=== PATIENT | male | born 1945 | race Caucasian/White ===

== ENCOUNTER 2021-12-28 13:46 | Inpatient (IN) ==
[2021-12-28 14:01] LABS: POC Calcium, Ionized 1.16 (1.16-1.32); POC Creatinine 6.1 (0.6-1.2); POC Potassium 4.7 (3.3-5.1)
--- NOTE | 2021-12-28 14:05 | Emergency Department Note ---
Altered Mental Status HPI General Chief Complaint: Neuro Symptoms/Deficit Stated Complaint: stroke Time Seen by Provider: 12/28/21 14:00 Source: patient and family Mode of arrival: ambulatory Limitations: no limitations History of Present Illness HPI Narrative: Narrative: The patient is brought in by family for concern plaints of confusion. The patient was last seen normal last night. The family does admit that the confusion seems to have resolved. Patient states that the last thing he remembers was being in the bathroom last night. He said then he woke up this morning and did not remember how he got in there. Patient denies having any pain. He denies headache, chest pain, abdominal pain, neck or back pain, or any extremity injury. Patient denies any recent illness. No cough or fever. No vomiting or diarrhea. Patient denies any dysuria. He says it last night he remembers his right leg being numb for a brief period of time but that has resolved. At the present time, he denies having any weakness or numbness. Related Data Home Medications Medication Instructions Recorded Confirmed tamsulosin 0.4 mg capsule 0.4 mg PO QHS Prostate problems 01/04/20 12/13/21 glipizide 10 mg tablet 10 mg PO QDAY 05/16/20 12/13/21 pravastatin 40 mg tablet 10 mg PO QDAY 06/11/21 12/13/21 calcitriol 0.25 mcg capsule 0.25 mcg PO 3XW 11/13/21 12/13/21 carvedilol 3.125 mg tablet 3.125 mg PO BID 11/13/21 12/13/21 darbepoetin isiah in polysorbat 60 60 mcg subcut Q2W 11/13/21 12/13/21 mcg/mL in polysorbate injection (Aranesp) fluticasone propionate 50 1 spray intranasal QDAY PRN 11/13/21 12/13/21 mcg/actuation nasal spray,suspension famotidine 40 mg tablet 40 mg PO BID 12/13/21 12/13/21 prednisone 20 mg tablet 20 mg PO QDAY 12/13/21 12/13/21 Previous Rx's Medication Instructions Recorded diltiazem HCl 120 mg 120 mg PO QAM HTN and protein in 06/11/21 capsule,extended release 24 hr urine #90 caps furosemide 20 mg tablet 20 mg PO BID #180 tabs 09/12/21 lisinopril 20 mg tablet 20 mg PO QHS HTN, protein in urine 09/18/21 #30 tabs hydralazine 100 mg tablet 100 mg PO TID #300 tabs 11/13/21 Allergies Allergy/AdvReac Type Severity Reaction Status Date / Time doxazosin AdvReac Severe Vomiting Verified 12/13/21 08:45 Review of Systems ROS ROS Narrative: Narrative: All systems ED: reviewed and negative except as stated. [facility] Narrative Patient History Narrative: Narrative: Medical/Surgical/Family History All Active Problems (Updated 12/28/21 @ 16:12 by Sebastián Matias MD) Nocturia (Chronic) Hypertension (Chronic) Chronic kidney disease, stage 4 (severe) (Chronic) Diabetes mellitus (Chronic) Diabetic retinopathy (Chronic) Macular puckering (Chronic) Cellulitis (Chronic) Chronic sinusitis (Chronic) SOB (shortness of breath) (Chronic) Wheezing (Chronic) Acid reflux (Chronic) Urinary urgency (Chronic) Chronic stasis dermatitis (Chronic) Morbidly obese (Chronic) No significant past surgical history (Chronic) Hyperkalemia (Acute) Uncontrolled type 2 diabetes mellitus with stage 4 chronic kidney disease, with long-term current use of insulin (Chronic) 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) Hyperparathyroidism due to renal insufficiency (Chronic) Chronic kidney disease (CKD), stage IV (severe) (Chronic) Chronic diastolic CHF (congestive heart failure), NYHA class 2 (Chronic) Hypotension (Acute) CHF (congestive heart failure) (Acute) BPH (benign prostatic hyperplasia) (Acute) Essential hypertension (Chronic) Diabetes mellitus with chronic kidney disease, without long-term current use of insulin (Chronic) Acute neck pain (Acute) Acute neck pain (Acute) Viral syndrome (Acute) Acute anemia (Acute) Anemia due to stage 4 chronic kidney disease treated with darbepoetin (Acute) Iron deficiency (Acute) Mass of left lung (Acute) TIA (transient ischemic attack) (Acute) Transient confusion (Acute) ANNA (acute kidney injury) (Acute) Medical History (Updated 12/28/21 @ 16:12 by Sebastián Matias MD) Acid reflux Cellulitis Chronic diastolic CHF (congestive heart failure), NYHA class 2 Suspect HTN > valvular heart disease. 05/2021: Add diltiazem in place of amlodipine Chronic kidney disease (CKD), stage IV (severe) HTN, NSAIDs with nephrotic range proteinuria...suspect prior NSAIDS cause and doubt DM as HgA1c well controlled over the years. Since spring, there has been worsening of GFR to 14 cc/min but improved proteinuria Chronic kidney disease, stage 4 (severe) Most likely associated with diabetes mellitus type 2 with proteinuria present Chronic sinusitis Chronic stasis dermatitis Diabetes mellitus Diabetic nephropathy associated with type 2 diabetes mellitus Stable GFR and marked improvement in urine protein losses argues against DM nephropathy or marked improvement /therapeutic sucess with ACEi Diabetic retinopathy Hypertension Goal blood pressure is 130/80 He is not achieve that goal yet but is improved... Increase hydralazine to 100 mg 3 times a day on 11/13/2021 and continue lisinopril 20 mg a day and the diltiazem and carvedilol Macular puckering Morbidly obese Nocturia SOB (shortness of breath) Uncontrolled type 2 diabetes mellitus with stage 4 chronic kidney disease, with long-term current use of insulin Currently on 70/30 insulin as well as low-dose glipizide Urinary urgency Viral syndrome Wheezing Surgical History No significant past surgical history Social History Smoking Status: Never smoker Alcohol Intake Frequency: does not drink Substance Use: does not use Exam Narrative Narrative: Narrative: General Limitations: no limitations General appearance: Present alert and in no apparent distress Head Head: Present atraumatic and normal inspection Eye Eye: Present normal appearance, PERRL and EOMI; Absent nystagmus ENT ENT: Present mucous membranes moist Neck Neck: Present normal inspection, full ROM and trachea midline; Absent tenderness or meningismus Chest Chest: Present normal inspection and symmetric chest wall rise; Absent tenderness Respiratory Respiratory: Present normal lung sounds bilaterally; Absent respiratory distress Cardiovascular Cardiovascular: Present normal rhythm, bradycardia and other (+2 pulses all 4 EXTR) Adbominal Abdominal: Present soft; Absent distention or tenderness Extremities Extremities: Present normal inspection and full ROM; Absent tenderness Back Back: Present full ROM; Absent tenderness, CVA tenderness (R) or CVA tenderness (L) Neurological Neurological: Present alert, oriented X3, CN II-XII intact and other (Cerebellar exam is normal based on finger-nose. NIH stroke scale 0. GCS 15); Absent motor sensory deficit Psychiatric Psychiatric: Present normal affect and normal mood Skin Skin: Present warm (WNL) and dry Course Reevaluation(s) Reevaluation #1: With a negative head CT, plan on giving aspirin. We will also obtain an MRI of the brain. Time: 15:39 Vital Signs Vital signs: Vital Signs Pulse Rate 45 L 12/28/21 13:51 Respiratory Rate 15 12/28/21 13:51 Blood Pressure 101/49 12/28/21 13:51 Pulse Oximetry (%) 98 12/28/21 13:51 Oxygen Delivery Method 12/28/21 13:51 Pulse Rate 37 L 12/28/21 16:17 Respiratory Rate 14 12/28/21 16:17 Blood Pressure 114/46 12/28/21 16:17 Pulse Oximetry (%) 98 12/28/21 16:17 Oxygen Delivery Method 12/28/21 13:51 MDM MDM Narrative Medical decision making narrative: Narrative: The patient is brought in for concerns of confusion. The symptoms seem to have resolved. He had a transient confusion last night and into this morning. He has a nonfocal neurologic exam. I do not think that the patient has had a stroke. Metabolic or infectious etiologies are also considered. TIA is considered. Plan to get a head CT and other appropriate work-up for this differential. At change of shift, the patient is handed over to the oncoming provider. The urinalysis and MRI of the head is still pending. Patient's lab work does show a slightly worsening creatinine compared to baseline. A saline drip has been ordered. I think patient could benefit from an observation overnight for continued saline infusion even if the MRI and UA do not show any acute abnormality. Please see the follow-up providers note for further details. Lab Data Lab results reviewed: Yes I reviewed the patient's lab results. Result diagrams: 12/28/21 14:00 12/28/21 14:00 Labs: Lab Results 12/28/21 12/28/21 12/28/21 Range/Units 13:57 13:58 14:00 WBC 9.9 (4.5-11.0) K/mcL RBC 3.76 L (4.63-6.08) M/mcL Hgb 10.4 L (13.7-17.5) g/dL Hct 33.2 L (40.1-51.0) % POC Hct 34.0 L (41-55) MCV 88.3 (80.0-100.0) fL MCH 27.7 (26.0-34.0) pg MCHC 31.3 (31.0-36.0) g/dL RDW 15.9 H (11.5-14.5) % Plt Count 298 (140-440) K/mcL MPV 9.7 (7.4-10.4) fL Immature Gran % (Auto) 0.3 (0.0-0.5) % Neut % (Auto) 86.6 H (38.0-78.0) % Lymph % (Auto) 6.7 L (15.5-49.0) % Gonzales % (Auto) 5.9 (1.0-12.0) % Eos % (Auto) 0.2 (0.0-7.0) % Baso % (Auto) 0.3 (0.0-2.0) % Lymph # (Auto) 0.66 L (1.50-4.80) K/mcL Gonzales # (Auto) 0.58 (0.10-0.90) K/mcL Eos # (Auto) 0.02 (0.00-0.70) K/mcL Baso # (Auto) 0.03 (0.00-0.30) K/mcL Immature Gran # 0.03 (0.00-0.05) K/mcl Absolute Neutrophils 8.53 H (1.80-8.00) K/mcL PT (11.9-14.5) sec INR (0.9-1.1) APTT (20.0-37.0) sec POC Sodium 133 (133-145) Sodium (133-145) mmol/L POC Potassium 4.7 (3.3-5.1) Potassium (3.3-5.1) mmol/L POC Chloride 102 (96-108) Chloride (96-108) mmol/L Carbon Dioxide (22-30) mmol/L POC Total CO2 19.0 L (22-30) Anion Gap (8.0-16.0) POC BUN 111 H* (6-20) BUN (8-23) mg/dL Creatinine (0.7-1.2) mg/dL POC Creatinine 6.1 H* (0.6-1.2) GFR Calculation Glucose (70-105) mg/dL POC Glucose 111 H (70-105) Calcium (8.6-10.4) mg/dL POC WB Ioniz Calcium 1.16 (1.16-1.32) Total Bilirubin (0.1-1.0) mg/dL AST (<40) U/L ALT (<40) U/L Alkaline Phosphatase (39-117) U/L Total Protein (5.9-8.4) gm/dL Albumin (3.2-5.2) gm/dL Globulin (2.2-3.7) gm/dL Albumin/Globulin Ratio (1.0-2.3) POC Troponin I 0 L (0.02-0.08) 12/28/21 12/28/21 Range/Units 14:00 14:00 WBC (4.5-11.0) K/mcL RBC (4.63-6.08) M/mcL Hgb (13.7-17.5) g/dL Hct (40.1-51.0) % POC Hct (41-55) MCV (80.0-100.0) fL MCH (26.0-34.0) pg MCHC (31.0-36.0) g/dL RDW (11.5-14.5) % Plt Count (140-440) K/mcL MPV (7.4-10.4) fL Immature Gran % (Auto) (0.0-0.5) % Neut % (Auto) (38.0-78.0) % Lymph % (Auto) (15.5-49.0) % Gonzales % (Auto) (1.0-12.0) % Eos % (Auto) (0.0-7.0) % Baso % (Auto) (0.0-2.0) % Lymph # (Auto) (1.50-4.80) K/mcL Gonzales # (Auto) (0.10-0.90) K/mcL Eos # (Auto) (0.00-0.70) K/mcL Baso # (Auto) (0.00-0.30) K/mcL Immature Gran # (0.00-0.05) K/mcl Absolute Neutrophils (1.80-8.00) K/mcL PT 13.8 (11.9-14.5) sec INR 1.0 (0.9-1.1) APTT 35.8 (20.0-37.0) sec POC Sodium (133-145) Sodium 134 (133-145) mmol/L POC Potassium (3.3-5.1) Potassium 4.8 (3.3-5.1) mmol/L POC Chloride (96-108) Chloride 96 (96-108) mmol/L Carbon Dioxide 17 L (22-30) mmol/L POC Total CO2 (22-30) Anion Gap 21.0 H (8.0-16.0) POC BUN (6-20) BUN 87 H (8-23) mg/dL Creatinine 5.2 H* (0.7-1.2) mg/dL POC Creatinine (0.6-1.2) GFR Calculation 10 Glucose 106 H (70-105) mg/dL POC Glucose (70-105) Calcium 9.1 (8.6-10.4) mg/dL POC WB Ioniz Calcium (1.16-1.32) Total Bilirubin 0.4 (0.1-1.0) mg/dL AST 21 (<40) U/L ALT 15 (<40) U/L Alkaline Phosphatase 106 (39-117) U/L Total Protein 6.9 (5.9-8.4) gm/dL Albumin 3.1 L (3.2-5.2) gm/dL Globulin 3.8 H (2.2-3.7) gm/dL Albumin/Globulin Ratio 0.8 L (1.0-2.3) POC Troponin I (0.02-0.08) Radiology Data Radiology results reviewed: Yes I reviewed the patient's radiology results. Radiology results narrative: Per a phone call from the radiologist, the head CT shows no acute abnormality. There is no sign of any hemorrhage. EKG Data EKG #1: EKG attestation: Yes I reviewed and interpreted this EKG. and Yes There are no EKG findings of acute coronary syndrome EKG results narrative: Sinus, rate 39, normal axis, QTC 472, TN 200, and pattern, no acute ST or T changes concerning for acute infarction Discharge Plan Patient/Caregiver Discharge Instructions Pt seen by VP SALES/PA only: No Clinical Impression: TIA (transient ischemic attack), Transient confusion, ANNA (acute kidney injury) Patient Disposition: Still a Patient Follow up with: Elizabeth Heredia ARNP [Primary Care Provider] - Prescriptions: No Action furosemide 20 mg tablet 20 mg PO BID Qty: 180 2RF tamsulosin 0.4 mg capsule 0.4 mg PO QHS glipizide 10 mg tablet 10 mg PO QDAY famotidine 40 mg tablet 40 mg PO BID fluticasone propionate 50 mcg/actuation spray,suspension 1 spray intranasal QDAY PRN Rx Instructions: administer into each nostril pravastatin 40 mg tablet 10 mg PO QDAY diltiazem HCl 120 mg capsule,extended release 24hr 120 mg PO QAM Qty: 90 3RF Rx Instructions: Do not take if HR less than 60/min Replaces Amlodipine lisinopril 20 mg tablet 20 mg PO QHS Qty: 30 11RF Rx Instructions: New dose. Aranesp (in polysorbate) 60 mcg/mL solution 60 mcg subcut Q2W calcitriol 0.25 mcg capsule 0.25 mcg PO 3XW Rx Instructions: Thursday, Thursday, Thursday. carvedilol 3.125 mg tablet 3.125 mg PO BID Rx Instructions: must administer with a meal/food hydralazine 100 mg tablet 100 mg PO TID Qty: 300 3RF Rx Instructions: NEW DOSE prednisone 20 mg tablet 20 mg PO QDAY Rx Instructions: has 3 left.
[2021-12-28 15:10] LABS: Partial Thromboplastin Time 35.8 sec (20.0-37.0); Prothrombin Time 13.8 sec (11.9-14.5)
[2021-12-28] MEDS ORDERED: 0.9 % SODIUM CHLORIDE 500 ML IV ONE ×2 (15:10→17:21)
[2021-12-28 15:25] LABS: Basophils # (Auto) 0.03 K/mcL (0.00-0.30); Basophils % (Auto) 0.3 % (0.0-2.0); Eosinophils # (Auto) 0.02 K/mcL (0.00-0.70); Eosinophils % (Auto) 0.2 % (0.0-7.0); Hematocrit 33.2 % (40.1-51.0); Hemoglobin 10.4 g/dL (13.7-17.5); Lymphocytes # (Auto) 0.66 K/mcL (1.50-4.80); Lymphocytes % (Auto) 6.7 % (15.5-49.0); Mean Cell Volume 88.3 fL (80.0-100.0); Mean Corpuscular HGB Conc 31.3 g/dL (31.0-36.0); Mean Platelet Volume 9.7 fL (7.4-10.4); Monocytes # (Auto) 0.58 K/mcL (0.10-0.90); Monocytes % (Auto) 5.9 % (1.0-12.0); Neutrophils % (Auto) 86.6 % (38.0-78.0); Platelet Count 298 K/mcL (140-440); RBC 3.76 M/mcL (4.63-6.08); Red Cell Distribution Width 15.9 % (11.5-14.5); WBC 9.9 K/mcL (4.5-11.0)
[2021-12-28] MEDS ORDERED: ASPIRIN 325 MG ENTERIC COATED TABLET PO ONE (15:38)
[2021-12-28 15:45] LABS: ALT/SGPT 15 U/L (<40); AST/SGOT 21 U/L (<40); Albumin 3.1 gm/dL (3.2-5.2); Albumin/Globulin Ratio 0.8 (1.0-2.3); Alkaline Phosphatase 106 U/L (39-117); Bilirubin,Total 0.4 mg/dL (0.1-1.0); Blood Urea Nitrogen 87 mg/dL (8-23); Calcium 9.1 mg/dL (8.6-10.4); Carbon Dioxide 17 mmol/L (22-30); Chloride 96 mmol/L (96-108); Globulin 3.8 gm/dL (2.2-3.7); Glomerular Filtration Rate 10; Glucose 106 mg/dL (70-105)
[2021-12-28] MEDS ORDERED: ASPIRIN 81 MG TAB.CHEW CHEWED ONE (15:46)
[2021-12-28] MEDS: 0.9 % SODIUM CHLORIDE 1,000 ML IV SCH (16:11)
[2021-12-28] MEDS ORDERED: FUROSEMIDE 20 MG/2 ML VIAL IV ONE (17:21)
--- NOTE | 2021-12-28 17:37 | Magnetic Resonance Report ---
CLINICAL INFORMATION: Code stroke COMPARISON: None. TECHNIQUE:Sagittal T1 FLAIR, axial T1 FLAIR, T2 FLAIR propeller, T2 propeller, gradient, diffusion, ADC and coronal T2 weighted images were acquired. FINDINGS: The ventricles, sulci, fissures and cisterns are symmetrically enlarged compatible with mild age-related atrophy extra-axial fluid collections or mass are appreciated. Scattered chronic ischemic lesions in the deep cerebral white matter less than typically seen in this age group. No restricted diffusion to suggest acute CVA. No hemorrhage mass effect or other acute finding. The signal void in intracerebral arteries, extra-axial cranial nerves, pituitary, orbits and paranasal sinuses are all normal. IMPRESSION: Mild atrophy and scattered chronic ischemic foci in the deep cerebral white matter expected for age. No evidence of acute CVA or other acute finding. Interpreted and Authenticated by: Jimmy Glass 12/28/21
--- NOTE | 2021-12-28 17:39 | Cat Scan Report ---
CLINICAL INFORMATION: Code stroke COMPARISON: None. TECHNIQUE: 2.5 mm helical slices were obtained in the skull base to vertex. Following reconstruction, axial reformatted images were reviewed at bone and parenchymal windows. The exam was performed using radiation dose optimization techniques including, but not limited to, automated exposure control, adjustment of the mA and/or kV according to patient size and use of iterative reconstruction technique. FINDINGS: The ventricles, sulci, fissures, and cisterns are symmetrically enlarged compatible with mild age-related atrophy. No extra-axial fluid collections are identified. Mild patchy chronic ischemic changes, in the deep cerebral white matter, are expected for age. There is no hemorrhage, mass effect, or edema. Bone windows show no osseous abnormality. IMPRESSION: Mild atrophy and chronic ischemic changes in the deep cerebral white matter-expected for age. No acute findings COMPARISON: None. TECHNIQUE: 2.5 mm helical slices were obtained in the skull base to vertex. Following reconstruction, axial reformatted images were reviewed at bone and parenchymal windows. The exam was performed using radiation dose optimization techniques including, but not limited to, automated exposure control, adjustment of the mA and/or kV according to patient size and use of iterative reconstruction technique. FINDINGS: The ventricles, sulci, fissures, and cisterns are normal in size and configuration. No extra-axial fluid collections are identified. The cerebrum, brainstem and cerebellum are unremarkable. There is no evidence of hemorrhage, mass effect, or edema. Bone windows show no osseous abnormality. IMPRESSION: Normal head CT without contrast. Interpreted and Authenticated by: Jimmy Glass 12/28/21
--- NOTE | 2021-12-28 17:42 | XRay Report ---
CLINICAL INFORMATION: Code stroke COMPARISON: 10/23/2021 TECHNIQUE: Portable FINDINGS: Mild cardiomegaly is unchanged. 5 cm left suprahilar mass which likely represent lung carcinoma also stable. This has been previously evaluated chest CT. The right hilum, remaining mediastinum and pulmonary vessels are normal. No infiltrates or effusions. IMPRESSION: 1. No acute disease. 2. 5 cm left suprahilar mass which may represent pulmonary malignancy. Additional clinical history unavailable. No change from the very short term two months ago. 3. Mild stable cardiomegaly Interpreted and Authenticated by: Jimmy Glass 12/28/21
[2021-12-28 19:40] LABS: POC Calcium, Ionized 1.14 (1.16-1.32); POC Creatinine 5.9 (0.6-1.2); POC Potassium 5.2 (3.3-5.1)
[2021-12-28 20:12] LABS: Appearance,Urine Clear (Clear); Bilirubin,Urine Negative (Negative); Color,Urine Yellow; Culture Indicated,Urine No; Glucose,Urine (UA) Negative (Negative); Ketones,Urine Negative (Negative); Leukocyte Esterase,Urine Negative /uL (Negative); Mucus,Urine FEW /hpf; Nitrate,Urine Negative (Negative); Urine Blood Negative ery/mcL (Negative); Urine RBC 0 /hpf (0-3); Urine Squamous Epithelial Cell 0 /hpf (0-4); Urine WBC 1 /hpf (0-4); Urobilinogen,Urine Normal
[2021-12-28 22:27] LABS: Albumin 2.8 gm/dL (3.2-5.2); Calcium 8.7 mg/dL (8.6-10.4); Phosphorous 8.3 mg/dL (2.5-4.5)
--- NOTE | 2021-12-28 22:31 | Emergency Department Note ---
Course Course Course Narrative: I assumed care for patient at 1700 pending, urine MRI results. MRI was negative for any acute findings. Labs show that patient's renal function improved with fluid. He did have 300+ urine in his bladder and could not provide us a urine so a Munoz catheter was placed and anchored. UA was unremarkable. Patient reiterated that he is refusing dialysis. Case was discussed with hospitalist who has agreed to admit the patient which we are grateful for. Plan was discussed with patient and he expressed verbal understanding and agreement. Vital Signs Vital signs: Vital Signs Pulse Rate 45 L 12/28/21 13:51 Respiratory Rate 15 12/28/21 13:51 Blood Pressure 101/49 12/28/21 13:51 Pulse Oximetry (%) 98 12/28/21 13:51 Oxygen Delivery Method 12/28/21 13:51 Pulse Rate 57 L 12/28/21 23:46 Respiratory Rate 14 12/28/21 23:46 Blood Pressure 127/49 12/28/21 23:46 Pulse Oximetry (%) 97 12/28/21 23:46 Oxygen Delivery Method 12/28/21 13:51 [facility] MDM Narrative Medical decision making narrative: Narrative: Differential Diagnosis Differential Diagnosis: Acute on chronic kidney injury, TIA Lab Data Lab results reviewed: Yes I reviewed the patient's lab results. Result diagrams: 12/28/21 14:00 12/28/21 20:59 Labs: Lab Results 12/28/21 12/28/21 12/28/21 Range/Units 13:57 13:58 14:00 WBC 9.9 (4.5-11.0) K/mcL RBC 3.76 L (4.63-6.08) M/mcL Hgb 10.4 L (13.7-17.5) g/dL Hct 33.2 L (40.1-51.0) % POC Hct 34.0 L (41-55) MCV 88.3 (80.0-100.0) fL MCH 27.7 (26.0-34.0) pg MCHC 31.3 (31.0-36.0) g/dL RDW 15.9 H (11.5-14.5) % Plt Count 298 (140-440) K/mcL MPV 9.7 (7.4-10.4) fL Immature Gran % (Auto) 0.3 (0.0-0.5) % Neut % (Auto) 86.6 H (38.0-78.0) % Lymph % (Auto) 6.7 L (15.5-49.0) % [place] % (Auto) 5.9 (1.0-12.0) % Eos % (Auto) 0.2 (0.0-7.0) % Baso % (Auto) 0.3 (0.0-2.0) % Lymph # (Auto) 0.66 L (1.50-4.80) K/mcL [place] # (Auto) 0.58 (0.10-0.90) K/mcL Eos # (Auto) 0.02 (0.00-0.70) K/mcL Baso # (Auto) 0.03 (0.00-0.30) K/mcL Immature Gran # 0.03 (0.00-0.05) K/mcl Absolute Neutrophils 8.53 H (1.80-8.00) K/mcL PT (11.9-14.5) sec INR (0.9-1.1) APTT (20.0-37.0) sec POC Sodium 133 (133-145) Sodium (133-145) mmol/L POC Potassium 4.7 (3.3-5.1) Potassium (3.3-5.1) mmol/L POC Chloride 102 (96-108) Chloride (96-108) mmol/L Carbon Dioxide (22-30) mmol/L POC Total CO2 19.0 L (22-30) Anion Gap (8.0-16.0) POC BUN 111 H* (6-20) BUN (8-23) mg/dL Creatinine (0.7-1.2) mg/dL POC Creatinine 6.1 H* (0.6-1.2) GFR Calculation Glucose (70-105) mg/dL POC Glucose 111 H (70-105) Calcium (8.6-10.4) mg/dL POC WB Ioniz Calcium 1.16 (1.16-1.32) Phosphorus (2.5-4.5) mg/dL Total Bilirubin (0.1-1.0) mg/dL AST (<40) U/L ALT (<40) U/L Alkaline Phosphatase (39-117) U/L Total Protein (5.9-8.4) gm/dL Albumin (3.2-5.2) gm/dL Globulin (2.2-3.7) gm/dL Albumin/Globulin Ratio (1.0-2.3) Urine Color Urine Appearance (Clear) Urine pH (5.0-9.0) Ur Specific [place] (1.000-1.035) Urine Protein (Negative) mg/dL Urine Glucose (UA) (Negative) mg/dL Urine Ketones (Negative) mg/dL Urine Occult Blood (Negative) omar/mcL Urine Nitrate (Negative) Urine Bilirubin (Negative) mg/dL Urine Urobilinogen mg/dL Ur Leukocyte Esterase (Negative) /uL Urine RBC (0-3) /hpf Urine WBC (0-4) /hpf Ur Squamous Epith Cells (0-4) /hpf Urine Bacteria (0) /hpf Urine Mucus (None) /hpf Ur Culture Indicated? POC Troponin I 0 L (0.02-0.08) 12/28/21 12/28/21 12/28/21 Range/Units 14:00 14:00 18:00 WBC (4.5-11.0) K/mcL RBC (4.63-6.08) M/mcL Hgb (13.7-17.5) g/dL Hct (40.1-51.0) % POC Hct (41-55) MCV (80.0-100.0) fL MCH (26.0-34.0) pg MCHC (31.0-36.0) g/dL RDW (11.5-14.5) % Plt Count (140-440) K/mcL MPV (7.4-10.4) fL Immature Gran % (Auto) (0.0-0.5) % Neut % (Auto) (38.0-78.0) % Lymph % (Auto) (15.5-49.0) % [place] % (Auto) (1.0-12.0) % Eos % (Auto) (0.0-7.0) % Baso % (Auto) (0.0-2.0) % Lymph # (Auto) (1.50-4.80) K/mcL [place] # (Auto) (0.10-0.90) K/mcL Eos # (Auto) (0.00-0.70) K/mcL Baso # (Auto) (0.00-0.30) K/mcL Immature Gran # (0.00-0.05) K/mcl Absolute Neutrophils (1.80-8.00) K/mcL PT 13.8 (11.9-14.5) sec INR 1.0 (0.9-1.1) APTT 35.8 (20.0-37.0) sec POC Sodium (133-145) Sodium 134 (133-145) mmol/L POC Potassium (3.3-5.1) Potassium 4.8 (3.3-5.1) mmol/L POC Chloride (96-108) Chloride 96 (96-108) mmol/L Carbon Dioxide 17 L (22-30) mmol/L POC Total CO2 (22-30) Anion Gap 21.0 H (8.0-16.0) POC BUN (6-20) BUN 87 H (8-23) mg/dL Creatinine 5.2 H* (0.7-1.2) mg/dL POC Creatinine (0.6-1.2) GFR Calculation 10 Glucose 106 H (70-105) mg/dL POC Glucose (70-105) Calcium 9.1 (8.6-10.4) mg/dL POC WB Ioniz Calcium (1.16-1.32) Phosphorus (2.5-4.5) mg/dL Total Bilirubin 0.4 (0.1-1.0) mg/dL AST 21 (<40) U/L ALT 15 (<40) U/L Alkaline Phosphatase 106 (39-117) U/L Total Protein 6.9 (5.9-8.4) gm/dL Albumin 3.1 L (3.2-5.2) gm/dL Globulin 3.8 H (2.2-3.7) gm/dL Albumin/Globulin Ratio 0.8 L (1.0-2.3) Urine Color Yellow Urine Appearance Clear (Clear) Urine pH 5.0 (5.0-9.0) Ur Specific [place] 1.020 (1.000-1.035) Urine Protein 100 mg/dl A (Negative) mg/dL Urine Glucose (UA) Negative (Negative) mg/dL Urine Ketones Negative (Negative) mg/dL Urine Occult Blood Negative (Negative) omar/mcL Urine Nitrate Negative (Negative) Urine Bilirubin Negative (Negative) mg/dL Urine Urobilinogen Normal mg/dL Ur Leukocyte Esterase Negative (Negative) /uL Urine RBC 0 (0-3) /hpf Urine WBC 1 (0-4) /hpf Ur Squamous Epith Cells 0 (0-4) /hpf Urine Bacteria None (0) /hpf Urine Mucus Few A (None) /hpf Ur Culture Indicated? No POC Troponin I (0.02-0.08) 12/28/21 12/28/21 12/28/21 Range/Units 19:35 20:59 20:59 WBC (4.5-11.0) K/mcL RBC (4.63-6.08) M/mcL Hgb (13.7-17.5) g/dL Hct (40.1-51.0) % POC Hct 30.0 L (41-55) MCV (80.0-100.0) fL MCH (26.0-34.0) pg MCHC (31.0-36.0) g/dL RDW (11.5-14.5) % Plt Count (140-440) K/mcL MPV (7.4-10.4) fL Immature Gran % (Auto) (0.0-0.5) % Neut % (Auto) (38.0-78.0) % Lymph % (Auto) (15.5-49.0) % [place] % (Auto) (1.0-12.0) % Eos % (Auto) (0.0-7.0) % Baso % (Auto) (0.0-2.0) % Lymph # (Auto) (1.50-4.80) K/mcL [place] # (Auto) (0.10-0.90) K/mcL Eos # (Auto) (0.00-0.70) K/mcL Baso # (Auto) (0.00-0.30) K/mcL Immature Gran # (0.00-0.05) K/mcl Absolute Neutrophils (1.80-8.00) K/mcL PT (11.9-14.5) sec INR (0.9-1.1) APTT (20.0-37.0) sec POC Sodium 133 (133-145) Sodium 132 L (133-145) mmol/L POC Potassium 5.2 H (3.3-5.1) Potassium 5.4 H 5.2 H (3.3-5.1) mmol/L POC Chloride 103 (96-108) Chloride 97 (96-108) mmol/L Carbon Dioxide 16 L (22-30) mmol/L POC Total CO2 18.0 L (22-30) Anion Gap 19.0 H (8.0-16.0) POC BUN 109 H* (6-20) BUN 92 H (8-23) mg/dL Creatinine 4.9 H (0.7-1.2) mg/dL POC Creatinine 5.9 H* (0.6-1.2) GFR Calculation 11 Glucose 246 H (70-105) mg/dL POC Glucose 182 H (70-105) Calcium 8.7 (8.6-10.4) mg/dL POC WB Ioniz Calcium 1.14 L (1.16-1.32) Phosphorus 8.3 H* (2.5-4.5) mg/dL Total Bilirubin (0.1-1.0) mg/dL AST (<40) U/L ALT (<40) U/L Alkaline Phosphatase (39-117) U/L Total Protein (5.9-8.4) gm/dL Albumin 2.8 L (3.2-5.2) gm/dL Globulin (2.2-3.7) gm/dL Albumin/Globulin Ratio (1.0-2.3) Urine Color Urine Appearance (Clear) Urine pH (5.0-9.0) Ur Specific [place] (1.000-1.035) Urine Protein (Negative) mg/dL Urine Glucose (UA) (Negative) mg/dL Urine Ketones (Negative) mg/dL Urine Occult Blood (Negative) omar/mcL Urine Nitrate (Negative) Urine Bilirubin (Negative) mg/dL Urine Urobilinogen mg/dL Ur Leukocyte Esterase (Negative) /uL Urine RBC (0-3) /hpf Urine WBC (0-4) /hpf Ur Squamous Epith Cells (0-4) /hpf Urine Bacteria (0) /hpf Urine Mucus (None) /hpf Ur Culture Indicated? POC Troponin I (0.02-0.08) Radiology Data Radiology results reviewed: Yes I reviewed the patient's radiology results. Radiology results narrative: MRI of the brain obtained with image reviewed myself, agree with radiologist interpretation Core Measures AMI Core Measures Followed: Yes Discharge Plan Patient/Caregiver Discharge Instructions Pt seen by SCARFER OPERATOR/PA only: No Clinical Impression: TIA (transient ischemic attack), Transient confusion, ANAN (acute kidney injury) Patient Disposition: Xfer As Outpt/Obs ([facility]) Condition: Fair Follow up with: Elizabeth Heredia ARNP [Primary Care Provider] - Prescriptions: No Action furosemide 20 mg tablet 20 mg PO BID Qty: 180 2RF tamsulosin 0.4 mg capsule 0.4 mg PO QHS glipizide 10 mg tablet 10 mg PO QDAY famotidine 40 mg tablet 40 mg PO BID fluticasone propionate 50 mcg/actuation spray,suspension 1 spray intranasal QDAY PRN Rx Instructions: administer into each nostril pravastatin 40 mg tablet 10 mg PO QDAY diltiazem HCl 120 mg capsule,extended release 24hr 120 mg PO QAM Qty: 90 3RF Rx Instructions: Do not take if HR less than 60/min Replaces Amlodipine lisinopril 20 mg tablet 20 mg PO QHS Qty: 30 11RF Rx Instructions: New dose. Aranesp (in polysorbate) 60 mcg/mL solution 60 mcg subcut Q2W calcitriol 0.25 mcg capsule 0.25 mcg PO 3XW Rx Instructions: Thursday, Thursday, Thursday. carvedilol 3.125 mg tablet 3.125 mg PO BID Rx Instructions: must administer with a meal/food hydralazine 100 mg tablet 100 mg PO TID Qty: 300 3RF Rx Instructions: NEW DOSE prednisone 20 mg tablet 20 mg PO QDAY Rx Instructions: has 3 left.
--- NOTE | 2021-12-28 23:54 | Internal Med History&Physical ---
HPI History of Present Illness Patient information: Note initiated : 12/28/21 at 11:51 pm Service Date, if different from initiated Date: [] Patient: Rito Fleming 76 y/o M admitted on for stroke. Chief Complaint: [] History of present illness: Mr. Fleming is a 76 year old male with a history of hypertension, diabetes mellitus, HFpEF, moderate aortic stenosis, CKD stage 4, lung mass, CHELY presented to the ED for an acute episode of confusion at home. Symptoms resolved in the ED, CT head and MRI brain did not show any acute changes. The patient was found to have an acute on chronic kidney disease injury and hyperkalemia in the emergency department. Hospital medicine was consulted for admission for acute kidney injury and hyperkalemia. Review of systems Constitutional: no fever, fatigue, or weight loss Eyes: no vision changes or pain Cardiovascular: no chest pain, no palpitations Respiratory: no cough or dyspnea Gastrointestinal: no abdominal pain, no nausea, vomiting, or diarrhea Genitourinary: no dysuria or difficulty voiding Musculoskeletal: no arthralgia or myalgia Integumentary: no skin lesion or wound Neurological: Resolved confusion, no focal weakness or numbness Psychiatric: no anxiety or depression Physical exam Head: Atraumatic, normal inspection. Eyes: normal appearance, no scleral icterus. Neck: full ROM Respiratory: no respiratory distress. Cardiovascular: normal rate and rhythm, S1, S2. GI/Abdominal: soft, nontender, no guarding. Extremities: full range of motion, nontender. Neurological: CN II-XII intact, intact motor, intact sensation. Psychiatric: normal mood. Skin: warm, normal color PFSH PFSH All Active Problems (Updated 12/28/21 @ 16:12 by Sebastián Matias MD) Nocturia (Chronic) Hypertension (Chronic) Chronic kidney disease, stage 4 (severe) (Chronic) Diabetes mellitus (Chronic) Diabetic retinopathy (Chronic) Macular puckering (Chronic) Cellulitis (Chronic) Chronic sinusitis (Chronic) SOB (shortness of breath) (Chronic) Wheezing (Chronic) Acid reflux (Chronic) Urinary urgency (Chronic) Chronic stasis dermatitis (Chronic) Morbidly obese (Chronic) No significant past surgical history (Chronic) Hyperkalemia (Acute) Uncontrolled type 2 diabetes mellitus with stage 4 chronic kidney disease, with long-term current use of insulin (Chronic) 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) Hyperparathyroidism due to renal insufficiency (Chronic) Chronic kidney disease (CKD), stage IV (severe) (Chronic) Chronic diastolic CHF (congestive heart failure), NYHA class 2 (Chronic) Hypotension (Acute) CHF (congestive heart failure) (Acute) BPH (benign prostatic hyperplasia) (Acute) Essential hypertension (Chronic) Diabetes mellitus with chronic kidney disease, without long-term current use of insulin (Chronic) Acute neck pain (Acute) Acute neck pain (Acute) Viral syndrome (Acute) Acute anemia (Acute) Anemia due to stage 4 chronic kidney disease treated with darbepoetin (Acute) Iron deficiency (Acute) Mass of left lung (Acute) TIA (transient ischemic attack) (Acute) Transient confusion (Acute) ANNA (acute kidney injury) (Acute) Medical History (Updated 12/28/21 @ 16:12 by Sebastián Matias MD) Acid reflux Cellulitis Chronic diastolic CHF (congestive heart failure), NYHA class 2 Suspect HTN > valvular heart disease. 05/2021: Add diltiazem in place of amlodipine Chronic kidney disease (CKD), stage IV (severe) HTN, NSAIDs with nephrotic range proteinuria...suspect prior NSAIDS cause and doubt DM as HgA1c well controlled over the years. Since spring, there has been worsening of GFR to 14 cc/min but improved proteinuria Chronic kidney disease, stage 4 (severe) Most likely associated with diabetes mellitus type 2 with proteinuria present Chronic sinusitis Chronic stasis dermatitis Diabetes mellitus Diabetic nephropathy associated with type 2 diabetes mellitus Stable GFR and marked improvement in urine protein losses argues against DM nephropathy or marked improvement /therapeutic sucess with ACEi Diabetic retinopathy Hypertension Goal blood pressure is 130/80 He is not achieve that goal yet but is improved... Increase hydralazine to 100 mg 3 times a day on 11/13/2021 and continue lisinopril 20 mg a day and the diltiazem and carvedilol Macular puckering Morbidly obese Nocturia SOB (shortness of breath) Uncontrolled type 2 diabetes mellitus with stage 4 chronic kidney disease, with long-term current use of insulin Currently on 70/30 insulin as well as low-dose glipizide Urinary urgency Viral syndrome Wheezing Surgical History No significant past surgical history Social History (Updated 09/15/19 @ 19:21 by Vinnie Logan MD) smoking status: Former smoker alcohol intake frequency: does not drink substance use type: does not use MEDS/ALLERGIES Home Medications and Allergies Home Medications Medication Instructions Recorded Confirmed Type tamsulosin 0.4 mg capsule 0.4 mg PO QHS Prostate problems 01/04/20 12/29/21 History glipizide 10 mg tablet 10 mg PO QDAY 05/16/20 12/29/21 History diltiazem HCl 120 mg 120 mg PO QAM HTN and protein in 06/11/21 12/29/21 Rx capsule,extended release 24 hr urine #90 caps pravastatin 40 mg tablet 10 mg PO QDAY 06/11/21 12/29/21 History furosemide 20 mg tablet 20 mg PO BID #180 tabs 09/12/21 12/29/21 Rx lisinopril 20 mg tablet 20 mg PO QHS HTN, protein in urine 09/18/21 12/29/21 Rx #30 tabs calcitriol 0.25 mcg capsule 0.25 mcg PO 3XW 11/13/21 12/29/21 History carvedilol 3.125 mg tablet 3.125 mg PO BID 11/13/21 12/29/21 History darbepoetin isiah in polysorbat 60 60 mcg subcut Q2W 11/13/21 12/29/21 History mcg/mL in polysorbate injection (Aranesp) fluticasone propionate 50 1 spray intranasal QDAY PRN 11/13/21 12/29/21 History mcg/actuation nasal Hayfever spray,suspension hydralazine 100 mg tablet 100 mg PO TID #300 tabs 11/13/21 12/29/21 Rx famotidine 40 mg tablet 40 mg PO BID 12/13/21 12/29/21 History prednisone 20 mg tablet 20 mg PO QDAY 12/13/21 12/29/21 History Allergies Allergy/AdvReac Type Severity Reaction Status Date / Time doxazosin AdvReac Severe Vomiting Verified 12/13/21 08:45 EXAM Constitutional Vitals: Pulse Resp BP Pulse Ox O2 Del Method 57 L 14 127/49 97 12/28/21 23:46 12/28/21 23:46 12/28/21 23:46 12/28/21 23:46 12/28/21 13:51 DATA Data Completed and Pending Labs: Labs from last 24 hours 12/28/21 12/28/21 12/28/21 20:59 20:59 19:35 WBC RBC Hgb Hct POC Hct 30.0 L MCV MCH MCHC RDW Plt Count MPV Immature Gran % (Auto) Neut % (Auto) Lymph % (Auto) [place] % (Auto) Eos % (Auto) Baso % (Auto) Lymph # (Auto) [place] # (Auto) Eos # (Auto) Baso # (Auto) Immature Gran # Absolute Neutrophils PT INR APTT POC Sodium 133 Sodium 132 L POC Potassium 5.2 H Potassium 5.2 H 5.4 H POC Chloride 103 Chloride 97 Carbon Dioxide 16 L POC Total CO2 18.0 L Anion Gap 19.0 H POC BUN 109 H* BUN 92 H Creatinine 4.9 H POC Creatinine 5.9 H* GFR Calculation 11 Glucose 246 H POC Glucose 182 H Calcium 8.7 POC WB Ioniz Calcium 1.14 L Phosphorus 8.3 H* Total Bilirubin AST ALT Alkaline Phosphatase Total Protein Albumin 2.8 L Globulin Albumin/Globulin Ratio Urine Color Urine Appearance Urine pH Ur Specific [place] Urine Protein Urine Glucose (UA) Urine Ketones Urine Occult Blood Urine Nitrate Urine Bilirubin Urine Urobilinogen Ur Leukocyte Esterase Urine RBC Urine WBC Ur Squamous Epith Cells Urine Bacteria Urine Mucus Ur Culture Indicated? POC Troponin I 12/28/21 12/28/21 12/28/21 18:00 14:00 14:00 WBC RBC Hgb Hct POC Hct MCV MCH MCHC RDW Plt Count MPV Immature Gran % (Auto) Neut % (Auto) Lymph % (Auto) [place] % (Auto) Eos % (Auto) Baso % (Auto) Lymph # (Auto) [place] # (Auto) Eos # (Auto) Baso # (Auto) Immature Gran # Absolute Neutrophils PT 13.8 INR 1.0 APTT 35.8 POC Sodium Sodium Pending POC Potassium Potassium Pending POC Chloride Chloride Pending Carbon Dioxide Pending POC Total CO2 Anion Gap Pending POC BUN BUN Pending Creatinine Pending POC Creatinine GFR Calculation Pending Glucose Pending POC Glucose Calcium Pending POC WB Ioniz Calcium Phosphorus Pending Total Bilirubin AST ALT Alkaline Phosphatase Total Protein Albumin Pending Globulin Albumin/Globulin Ratio Urine Color Yellow Urine Appearance Clear Urine pH 5.0 Ur Specific [place] 1.020 Urine Protein 100 mg/dl A Urine Glucose (UA) Negative Urine Ketones Negative Urine Occult Blood Negative Urine Nitrate Negative Urine Bilirubin Negative Urine Urobilinogen Normal Ur Leukocyte Esterase Negative Urine RBC 0 Urine WBC 1 Ur Squamous Epith Cells 0 Urine Bacteria None Urine Mucus Few A Ur Culture Indicated? No POC Troponin I 12/28/21 12/28/21 12/28/21 14:00 14:00 13:58 WBC 9.9 RBC 3.76 L Hgb 10.4 L Hct 33.2 L POC Hct 34.0 L MCV 88.3 MCH 27.7 MCHC 31.3 RDW 15.9 H Plt Count 298 MPV 9.7 Immature Gran % (Auto) 0.3 Neut % (Auto) 86.6 H Lymph % (Auto) 6.7 L [place] % (Auto) 5.9 Eos % (Auto) 0.2 Baso % (Auto) 0.3 Lymph # (Auto) 0.66 L [place] # (Auto) 0.58 Eos # (Auto) 0.02 Baso # (Auto) 0.03 Immature Gran # 0.03 Absolute Neutrophils 8.53 H PT INR APTT POC Sodium 133 Sodium 134 POC Potassium 4.7 Potassium 4.8 POC Chloride 102 Chloride 96 Carbon Dioxide 17 L POC Total CO2 19.0 L Anion Gap 21.0 H POC BUN 111 H* BUN 87 H Creatinine 5.2 H* POC Creatinine 6.1 H* GFR Calculation 10 Glucose 106 H POC Glucose 111 H Calcium 9.1 POC WB Ioniz Calcium 1.16 Phosphorus Total Bilirubin 0.4 AST 21 ALT 15 Alkaline Phosphatase 106 Total Protein 6.9 Albumin 3.1 L Globulin 3.8 H Albumin/Globulin Ratio 0.8 L Urine Color Urine Appearance Urine pH Ur Specific [place] Urine Protein Urine Glucose (UA) Urine Ketones Urine Occult Blood Urine Nitrate Urine Bilirubin Urine Urobilinogen Ur Leukocyte Esterase Urine RBC Urine WBC Ur Squamous Epith Cells Urine Bacteria Urine Mucus Ur Culture Indicated? POC Troponin I 12/28/21 13:57 WBC RBC Hgb Hct POC Hct MCV MCH MCHC RDW Plt Count MPV Immature Gran % (Auto) Neut % (Auto) Lymph % (Auto) [place] % (Auto) Eos % (Auto) Baso % (Auto) Lymph # (Auto) [place] # (Auto) Eos # (Auto) Baso # (Auto) Immature Gran # Absolute Neutrophils PT INR APTT POC Sodium Sodium POC Potassium Potassium POC Chloride Chloride Carbon Dioxide POC Total CO2 Anion Gap POC BUN BUN Creatinine POC Creatinine GFR Calculation Glucose POC Glucose Calcium POC WB Ioniz Calcium Phosphorus Total Bilirubin AST ALT Alkaline Phosphatase Total Protein Albumin Globulin Albumin/Globulin Ratio Urine Color Urine Appearance Urine pH Ur Specific [place] Urine Protein Urine Glucose (UA) Urine Ketones Urine Occult Blood Urine Nitrate Urine Bilirubin Urine Urobilinogen Ur Leukocyte Esterase Urine RBC Urine WBC Ur Squamous Epith Cells Urine Bacteria Urine Mucus Ur Culture Indicated? POC Troponin I 0 L A/P Narrative A/P Narrative: Assessment: 76 year old male with a history of hypertension, diabetes mellitus, HFpEF, moderate aortic stenosis, CKD stage 4, lung mass, CHELY presented to the ED for confusion that resolved in the ED however found to have an acute on chronic kidney disease injury. The patient also has mild hyperkalemia without EKG changes. CT head and MRI brain were negative for acute changes. The patient says that he does not want hemodialysis. #Acute on chronic kidney disease stage 4 injury #Mild hyperkalemia #Anion gap metabolic acidosis #Sinus bradycardia #Resolved encephalopathy #Chronic diastolic heart failure, stable #Moderate aortic stenosis #Type 2 diabetes mellitus #Hypertension #Lung mass #CHELY Plan -IV fluid for ANNA. -Monitor renal function, urine output, volume status. -Follow potassium level, may require additional interventions including potassium binder. -If renal function or potassium level worsen will consult nephrology. -Hold any prescribed ATUL-I/ARB/Mineralocorticoid receptor antagonist. -Start sodium bicarbonate 650 mg twice daily. -Start sevelamer 1600 mg 3 times daily. -Correction Humalog SSI-medium dose. -Hold home lisinopril for hyperkalemia and ANNA, Lasix for ANNA, diltiazem for bradycardia, and glipizide. -Continue home Coreg, famotidine, hydralazine, pravastatin, prednisone, Flomax. 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 -PT consult. -Renal/Diabetic diet. -Address goals of care, plan for renal replacement therapy. -DVT prophylaxis: heparin SQ -Code status: Full -Disposition: TBD, should have lung mass biopsy if that is within goals of care. Time Spent With Patient Time: Total time spent is greater than 50% in coordination of care (as documented) at patient's floor/unit and/or counseling patient:
[2021-12-29] MEDS: 0.9 % SODIUM CHLORIDE 1,000 ML IV SCH ×5 (00:20→20:07)
[2021-12-29] MEDS ORDERED: DEXTROSE 50% 50 ML VIAL IV PRN (01:21)
[2021-12-29] MEDS ORDERED: ONDANSETRON 4 MG/2 ML VIAL IV PRN (01:21)
[2021-12-29] MEDS ORDERED: DEXTROSE 31 GM ORAL.SUSP PO PRN (01:21)
[2021-12-29] MEDS: 0.9 % SODIUM CHLORIDE 10 ML SYRINGE IV SCH ×3 (05:21→21:05)
[2021-12-29 06:45] LABS: Basophils # (Auto) 0.03 K/mcL (0.00-0.30); Basophils % (Auto) 0.4 % (0.0-2.0); Eosinophils # (Auto) 0.11 K/mcL (0.00-0.70); Eosinophils % (Auto) 1.5 % (0.0-7.0); Hematocrit 27.5 % (40.1-51.0); Hemoglobin 8.7 g/dL (13.7-17.5); Lymphocytes # (Auto) 0.85 K/mcL (1.50-4.80); Lymphocytes % (Auto) 11.4 % (15.5-49.0); Mean Cell Volume 86.8 fL (80.0-100.0); Mean Corpuscular HGB Conc 31.6 g/dL (31.0-36.0); Mean Platelet Volume 9.8 fL (7.4-10.4); Monocytes # (Auto) 0.83 K/mcL (0.10-0.90); Monocytes % (Auto) 11.1 % (1.0-12.0); Neutrophils % (Auto) 75.5 % (38.0-78.0); Platelet Count 258 K/mcL (140-440); RBC 3.17 M/mcL (4.63-6.08); Red Cell Distribution Width 15.9 % (11.5-14.5); WBC 7.5 K/mcL (4.5-11.0)
[2021-12-29 07:21] LABS: ALT/SGPT 12 U/L (<40); AST/SGOT 14 U/L (<40); Albumin 2.9 gm/dL (3.2-5.2); Albumin/Globulin Ratio 1.2 (1.0-2.3); Alkaline Phosphatase 93 U/L (39-117); Bilirubin,Direct < 0.2 mg/dL (0-0.3); Bilirubin,Total 0.3 mg/dL (0.1-1.0); Blood Urea Nitrogen 93 mg/dL (8-23); Calcium 8.7 mg/dL (8.6-10.4); Carbon Dioxide 19 mmol/L (22-30); Chloride 101 mmol/L (96-108); Globulin 2.4 gm/dL (2.2-3.7); Glomerular Filtration Rate 10; Glucose 239 mg/dL (70-105); Lactate Dehydrogenase 116 U/L (135-225); Phosphorous 9.1 mg/dL (2.5-4.5); Triglycerides 60 mg/dL (<150); Uric Acid 8.2 mg/dL (2.5-8.0)
[2021-12-29] MEDS: SEVELAMER 800 MG TABLET PO SCH ×3 (08:41→17:04)
[2021-12-29] MEDS: HEPARIN 5,000 UNIT/ML VIAL SQ SCH ×2 (08:41→21:05)
[2021-12-29] MEDS: INSULIN LISPRO 1 UNIT/0.01 ML UNIT SQ SCH ×4 (08:42→20:07)
[2021-12-29] MEDS: DOCUSATE SODIUM 100 MG CAPSULE PO SCH ×2 (08:42→21:15)
[2021-12-29] MEDS: SODIUM BICARBONATE 650 MG TABLET PO SCH ×2 (11:49→21:05)
--- NOTE | 2021-12-29 12:42 | Internal Med Progress Note ---
SUBJECTIVE Subjective Patient information: Note initiated : 12/29/21 at 12:38 pm Service Date, if different from initiated Date: [] Patient: Rito Fleming 76 y/o M admitted on 12/29/21 for stroke. Chief Complaint: [] Interval history: History of present illness: Mr. Fleming is a 76 year old male with a history of hypertension, diabetes melli tus, HFpEF, moderate aortic stenosis, CKD stage 4, lung mass, CHELY presented to the ED for an acute episode of confusion at home. Symptoms resolved in the ED, CT head and MRI brain did not show any acute changes. The patient was found to have an acute on chronic kidney disease injury and hyperkalemia in the emergency department. Hospital medicine was consulted for admission for acute kidney injury and hyperkalemia. 12/30 Constitutional Vitals: Vital Signs Temp Pulse Resp BP Pulse Ox O2 Del Method 98.7 F 71 16 135/56 99 12/29/21 12:00 12/29/21 12:00 12/29/21 04:21 12/29/21 12:00 12/29/21 12:00 12/29/21 12:00 Period Temp Pulse Resp BP Sys/Nielsen Pulse Ox O2 Del Method O2 Flow Rate Last 24 Hr 97.2 F-98.7 F 36-71 7-21 79-161/31-88 94-99 Room Air-Room Air Intake and Output 12/28/21 12/29/21 12/29/21 21:59 05:59 13:59 Intake Total 1500 140 927 Output Total 400 1550 Balance 1100 -1410 927 Weight 87.657 kg Intake & Output: Intake & Output 12/28/21 12/29/21 12/29/21 21:59 05:59 13:59 Intake Total 1500 140 927 Output Total 400 1550 Balance 1100 -1410 927 Weight 87.657 kg Intake: IV 1500 140 927 Sodium Chloride 0.9% 1,000 ml @ 500 140 927 125 mls/hr IV .Q8H [facility] Rx#: [id number] Sodium Chloride 0.9% 500 ml @ 1000 Wide Open IV BOLUS ONE Rx#: [id number] Output: Urine Catheter Amount 1550 Void Amount 400 Uretheral (Munoz) 400 Other: Urine Appearance Clear Uretheral (Munoz) Clear Clear Clear Urine Color Yellow Uretheral (Munoz) Dark Yellow Yellow Yellow Urine Odor Normal Uretheral (Munoz) Normal Stool Size Small Smear Stool Color Brown Brown Stool Consistency Soft Soft # Bowel Movements 1 1 Exam: General: Alert, Awake, No acute Distress Eyes/N/T: EOMI, Head/Neck: neck supple, CV: RRR, No murmurs, Pulm: Clear b/l, no wheezing/rhonchi/rales Abd: soft, nontender, +BS x4 Ext: no clubbing/cyanosis/edema Neuro: Alert, no focal deficits, moves all extremities, Skin: warm/dry OBJ DATA Labs CBC & Chem 7: 12/29/21 05:51 12/29/21 05:51 Labs: Abnormal Lab Results 12/29/21 12/29/21 12/28/21 05:51 05:51 20:59 RBC 3.17 L Hgb 8.7 L Hct 27.5 L POC Hct RDW 15.9 H Neut % (Auto) Lymph % (Auto) 11.4 L Lymph # (Auto) 0.85 L Absolute Neutrophils Sodium 132 L POC Potassium Potassium 5.2 H Carbon Dioxide 19 L 16 L POC Total CO2 Anion Gap 17.0 H 19.0 H POC BUN BUN 93 H 92 H Creatinine 5.0 H* 4.9 H POC Creatinine Glucose 239 H 246 H POC Glucose Uric Acid 8.2 H POC WB Ioniz Calcium Phosphorus 9.1 H* 8.3 H* Lactate Dehydrogenase 116 L Total Protein 5.3 L Albumin 2.9 L 2.8 L Globulin Albumin/Globulin Ratio Urine Protein Urine Mucus POC Troponin I 12/28/21 12/28/21 12/28/21 20:59 19:35 18:00 RBC Hgb Hct POC Hct 30.0 L RDW Neut % (Auto) Lymph % (Auto) Lymph # (Auto) Absolute Neutrophils Sodium POC Potassium 5.2 H Potassium 5.4 H Carbon Dioxide POC Total CO2 18.0 L Anion Gap POC BUN 109 H* BUN Creatinine POC Creatinine 5.9 H* Glucose POC Glucose 182 H Uric Acid POC WB Ioniz Calcium 1.14 L Phosphorus Lactate Dehydrogenase Total Protein Albumin Globulin Albumin/Globulin Ratio Urine Protein 100 mg/dl A Urine Mucus Few A POC Troponin I 12/28/21 12/28/21 12/28/21 14:00 14:00 13:58 RBC 3.76 L Hgb 10.4 L Hct 33.2 L POC Hct 34.0 L RDW 15.9 H Neut % (Auto) 86.6 H Lymph % (Auto) 6.7 L Lymph # (Auto) 0.66 L Absolute Neutrophils 8.53 H Sodium POC Potassium Potassium Carbon Dioxide 17 L POC Total CO2 19.0 L Anion Gap 21.0 H POC BUN 111 H* BUN 87 H Creatinine 5.2 H* POC Creatinine 6.1 H* Glucose 106 H POC Glucose 111 H Uric Acid POC WB Ioniz Calcium Phosphorus Lactate Dehydrogenase Total Protein Albumin 3.1 L Globulin 3.8 H Albumin/Globulin Ratio 0.8 L Urine Protein Urine Mucus POC Troponin I 12/28/21 13:57 RBC Hgb Hct POC Hct RDW Neut % (Auto) Lymph % (Auto) Lymph # (Auto) Absolute Neutrophils Sodium POC Potassium Potassium Carbon Dioxide POC Total CO2 Anion Gap POC BUN BUN Creatinine POC Creatinine Glucose POC Glucose Uric Acid POC WB Ioniz Calcium Phosphorus Lactate Dehydrogenase Total Protein Albumin Globulin Albumin/Globulin Ratio Urine Protein Urine Mucus POC Troponin I 0 L Meds: Medications Acetaminophen (Acetaminophen 325 Mg Tablet) 650 mg PO Q6HP PRN; Protocol PRN Reason: Per Pain Protocol/Fever > 101 Atorvastatin Calcium (Atorvastatin 10 Mg Tablet) 2.5 mg PO DAILY [facility] Calcitriol (Calcitriol 0.25 Mcg Capsule) 0.25 mcg PO MoWeFr@0900 [facility] Carvedilol (Carvedilol 3.125 Mg Tablet) 3.125 mg PO BIDCC [facility] Dextrose (Dextrose 50% 50 Ml Vial) 0 ml IV UD PRN PRN Reason: Per Sliding Scale Diagnostic Test (Pha) (Accu-Chek 1 Each Strip) 1 each FS ACHS [facility] Last Admin: 12/29/21 11:49 Dose: 1 each Docusate Sodium (Docusate Sodium 100 Mg Capsule) 100 mg PO BID [facility] Last Admin: 12/29/21 08:42 Dose: 100 mg Famotidine (Famotidine 20 Mg Tablet) 20 mg PO BID [facility] Glucose (Dextrose 31 Gm Oral.Susp) 15 gm PO PRN PRN PRN Reason: Hypoglycemia Heparin Sodium (Porcine) (Heparin 5,000 Unit/Ml Vial) 5,000 unit SQ Q12 [facility] Last Admin: 12/29/21 08:41 Dose: 5,000 unit Hydralazine HCl (Hydralazine 25 Mg Tablet) 100 mg PO TID [facility] Sodium Chloride (Sodium Chloride 0.9%) 1,000 mls @ 125 mls/hr IV .Q8H [facility] Last Admin: 12/29/21 11:50 Dose: 125 mls/hr Insulin Human Lispro (Insulin Lispro 1 Unit/0.01 Ml Unit) 0 unit SQ ACHS [facility]; Protocol Last Admin: 12/29/21 11:49 Dose: Not Given Ondansetron HCl (Ondansetron 4 Mg/2 Ml Vial) 4 mg IV Q6HP PRN PRN Reason: Nausea And Vomiting Prednisone ([facility] 20 Mg Tablet) [facility]: 01/01/22 08:01 Senna (Sennosides 1 Tablet) 2 tab PO [facility] Sevelamer Carbonate (Sevelamer 800 Mg Tablet) 1,600 mg PO TIDCC [facility] Last Admin: 12/29/21 11:49 Dose: 1,600 mg Sodium Bicarbonate (Sodium Bicarbonate 650 Mg Tablet) 650 mg PO BID [facility] Last Admin: 12/29/21 11:49 Dose: 650 mg Sodium Chloride (0.9 % Sodium Chloride 10 Ml Syringe) 10 ml IV Q8 [facility] Last Admin: 12/29/21 05:21 Dose: Not Given Tamsulosin HCl (Tamsulosin 0.4 Mg Capsule) 0.4 mg PO QHS [facility] A/P Narrative A/P Narrative: A: #ANNA on CKD 4: #Mild hyperkalemia : #Anion gap metabolic acidosis : #Sinus bradycardia: #encephalopathy: Resolved #Chronic diastolic heart failure: stable #Moderate aortic stenosis: #Type 2 DM: #Hypertension: #Lung mass: #CHELY: Plan -IV fluid for ANNA. -Monitor renal function, urine output, volume status. -Follow potassium level, may require additional interventions including potassium binder. -If renal function or potassium level worsen will consult nephrology. -Start sodium bicarbonate 650 mg twice daily. -Start sevelamer 1600 mg 3 times daily. -SSI -Hold home lisinopril for hyperkalemia and ANNA, Lasix for ANNA, diltiazem for bradycardia, and glipizide. -Continue home Coreg/hydralazine, prednisone -PT consult. -Address goals of care, plan for renal replacement therapy. -f/u with pcpv for lung mass biopsy if that is within goals of care. 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
[2021-12-29] MEDS: hydrALAZINE 25 MG TABLET PO SCH ×2 (15:06→21:05)
[2021-12-29] MEDS: CARVEDILOL 3.125 MG TABLET PO SCH (17:02)
[2021-12-29] MEDS: TAMSULOSIN 0.4 MG CAPSULE PO SCH (21:05)
[2021-12-29] MEDS: FAMOTIDINE 20 MG TABLET PO SCH (21:05)
[2021-12-29] MEDS: SENNOSIDES 1 TABLET PO SCH (21:05)
[2021-12-29] MEDS: ACETAMINOPHEN 325 MG TABLET PO PRN (23:33)
[2021-12-30] MEDS: 0.9 % SODIUM CHLORIDE 1,000 ML IV SCH ×2 (00:02→03:38)
[2021-12-30] MEDS: 0.9 % SODIUM CHLORIDE 10 ML SYRINGE IV SCH ×3 (05:36→20:17)
[2021-12-30 06:47] LABS: Basophils # (Auto) 0.02 K/mcL (0.00-0.30); Basophils % (Auto) 0.2 % (0.0-2.0); Eosinophils # (Auto) 0.16 K/mcL (0.00-0.70); Eosinophils % (Auto) 1.6 % (0.0-7.0); Hematocrit 26.3 % (40.1-51.0); Hemoglobin 8.3 g/dL (13.7-17.5); Lymphocytes # (Auto) 0.94 K/mcL (1.50-4.80); Lymphocytes % (Auto) 9.4 % (15.5-49.0); Mean Cell Volume 88.3 fL (80.0-100.0); Mean Corpuscular HGB Conc 31.6 g/dL (31.0-36.0); Mean Platelet Volume 9.4 fL (7.4-10.4); Monocytes # (Auto) 0.89 K/mcL (0.10-0.90); Monocytes % (Auto) 8.9 % (1.0-12.0); Neutrophils % (Auto) 79.5 % (38.0-78.0); Platelet Count 247 K/mcL (140-440); RBC 2.98 M/mcL (4.63-6.08); Red Cell Distribution Width 15.9 % (11.5-14.5)
--- NOTE | 2021-12-30 07:47 | Internal Med Progress Note ---
SUBJECTIVE Subjective Patient information: Note initiated : 12/30/21 at 7:40 am Service Date, if different from initiated Date: [] Patient: Rito Fleming 76 y/o M admitted on 12/29/21 for stroke. Chief Complaint: [] Interval history: History of present illness: Mr. Fleming is a 76 year old male with a history of hypertension, diabetes mellitus, HFpEF, moderate aortic stenosis, CKD stage 4, lung mass, CHELY presented to the ED for an acute episode of confusion at home. Symptoms resolved in the ED, CT head and MRI brain did not show any acute changes. The patient was found to have an acute on chronic kidney disease injury and hyperkalemia in the emergency department. Hospital medicine was consulted for admission for acute kidney injury and hyperkalemia. 12/30 Patient found to have gross hematuria overnight. Suspect related to Munoz catheter placement and withdrawal and BPH. Patient does describe BPH symptoms when asked. Munoz catheter removed yesterday evening. We will stop the heparin and place on SCDs. Creatinine 4.7 today. Looking at old labs his creatinine was 4.0 December 03 and prior to that it had ranged between 2.9-3.9. Potassium is within normal limits. Some acidosis with a bicarb of 18. Phosphorus elevated but improved him yesterday. Patient is on prednisone 20 mg daily but he does not know why and says he been on it for a long time. Review of Systems: denies headache/fever/chills/nausea/vomiting/chest or abdominal pain/cough/dyspnea/diarrhea. Otherwise see above. Constitutional Vitals: Vital Signs Temp Pulse Resp BP Pulse Ox O2 Del Method 100.2 F H 85 20 154/76 97 12/30/21 06:57 12/30/21 06:57 12/30/21 06:57 12/30/21 06:57 12/30/21 06:57 12/30/21 06:57 Period Temp Pulse Resp BP Sys/Nielsen Pulse Ox O2 Del Method O2 Flow Rate Last 24 Hr 97.4 F-100.2 F 54-85 16-20 120-154/56-76 96-99 Room Air-Room Air Intake and Output 12/29/21 12/30/21 12/30/21 21:59 05:59 13:59 Intake Total 2440 1180 Output Total 1450 1375 Balance 990 -195 Weight 90.917 kg Intake & Output: Intake & Output 12/29/21 12/30/21 12/30/21 21:59 05:59 13:59 Intake Total 2440 1180 Output Total 1450 1375 Balance 990 -195 Weight 90.917 kg Intake: IV 1000 940 Sodium Chloride 0.9% 1,000 ml @ 1000 940 125 mls/hr IV .Q8H [facility] Rx#: [id number] Oral 1440 240 Output: Urine Catheter Amount 1000 Void Amount 450 1375 Other: Meal Lunch Percent of Meal Consumed 100% Urine Appearance Clear Small Blood Clots Hematuria Small Blood Clots Urine Color Tea Colored Blood Tinged Medium Red Urine Odor Normal Normal Exam: General: Alert, Awake, No acute Distress Eyes/N/T: EOMI, Head/Neck: neck supple, CV: RRR, No murmurs, Pulm: Clear b/l, no wheezing/rhonchi/rales Abd: soft, nontender, +BS x4 Ext: no clubbing/cyanosis/edema Neuro: Alert, no focal deficits, moves all extremities, Skin: warm/dry OBJ DATA Labs CBC & Chem 7: 12/30/21 05:55 12/30/21 05:55 Labs: Abnormal Lab Results 12/30/21 12/29/21 12/29/21 05:55 14:03 05:51 RBC 2.98 L Hgb 8.3 L 8.6 L Hct 26.3 L POC Hct RDW 15.9 H Neut % (Auto) 79.5 H Lymph % (Auto) 9.4 L Lymph # (Auto) 0.94 L Absolute Neutrophils Sodium POC Potassium Potassium Carbon Dioxide 19 L POC Total CO2 Anion Gap 17.0 H POC BUN BUN 93 H Creatinine 5.0 H* POC Creatinine Glucose 239 H POC Glucose Uric Acid 8.2 H POC WB Ioniz Calcium Phosphorus 9.1 H* Lactate Dehydrogenase 116 L Total Protein 5.3 L Albumin 2.9 L Globulin Albumin/Globulin Ratio Urine Protein Urine Mucus POC Troponin I 12/29/21 12/28/21 12/28/21 05:51 20:59 20:59 RBC 3.17 L Hgb 8.7 L Hct 27.5 L POC Hct RDW 15.9 H Neut % (Auto) Lymph % (Auto) 11.4 L Lymph # (Auto) 0.85 L Absolute Neutrophils Sodium 132 L POC Potassium Potassium 5.2 H 5.4 H Carbon Dioxide 16 L POC Total CO2 Anion Gap 19.0 H POC BUN BUN 92 H Creatinine 4.9 H POC Creatinine Glucose 246 H POC Glucose Uric Acid POC WB Ioniz Calcium Phosphorus 8.3 H* Lactate Dehydrogenase Total Protein Albumin 2.8 L Globulin Albumin/Globulin Ratio Urine Protein Urine Mucus POC Troponin I 12/28/21 12/28/21 12/28/21 19:35 18:00 14:00 RBC Hgb Hct POC Hct 30.0 L RDW Neut % (Auto) Lymph % (Auto) Lymph # (Auto) Absolute Neutrophils Sodium POC Potassium 5.2 H Potassium Carbon Dioxide 17 L POC Total CO2 18.0 L Anion Gap 21.0 H POC BUN 109 H* BUN 87 H Creatinine 5.2 H* POC Creatinine 5.9 H* Glucose 106 H POC Glucose 182 H Uric Acid POC WB Ioniz Calcium 1.14 L Phosphorus Lactate Dehydrogenase Total Protein Albumin 3.1 L Globulin 3.8 H Albumin/Globulin Ratio 0.8 L Urine Protein 100 mg/dl A Urine Mucus Few A POC Troponin I 12/28/21 12/28/21 12/28/21 14:00 13:58 13:57 RBC 3.76 L Hgb 10.4 L Hct 33.2 L POC Hct 34.0 L RDW 15.9 H Neut % (Auto) 86.6 H Lymph % (Auto) 6.7 L Lymph # (Auto) 0.66 L Absolute Neutrophils 8.53 H Sodium POC Potassium Potassium Carbon Dioxide POC Total CO2 19.0 L Anion Gap POC BUN 111 H* BUN Creatinine POC Creatinine 6.1 H* Glucose POC Glucose 111 H Uric Acid POC WB Ioniz Calcium Phosphorus Lactate Dehydrogenase Total Protein Albumin Globulin Albumin/Globulin Ratio Urine Protein Urine Mucus POC Troponin I 0 L Meds: Medications Acetaminophen (Acetaminophen 325 Mg Tablet) 650 mg PO Q6HP PRN; Protocol PRN Reason: Per Pain Protocol/Fever > 101 Last Admin: 12/29/21 23:33 Dose: 650 mg Atorvastatin Calcium (Atorvastatin 10 Mg Tablet) 2.5 mg PO DAILY [facility] Calcitriol (Calcitriol 0.25 Mcg Capsule) 0.25 mcg PO MoWeFr@0900 [facility] Carvedilol (Carvedilol 3.125 Mg Tablet) 3.125 mg PO BIDCC [facility] Last Admin: 12/29/21 17:02 Dose: 3.125 mg Dextrose (Dextrose 50% 50 Ml Vial) 0 ml IV UD PRN PRN Reason: Per Sliding Scale Diagnostic Test (Pha) (Accu-Chek 1 Each Strip) 1 each FS ACHS [facility] Last Admin: 12/29/21 20:06 Dose: 1 each Docusate Sodium (Docusate Sodium 100 Mg Capsule) 100 mg PO BID [facility] Last Admin: 12/29/21 21:15 Dose: 100 mg Famotidine (Famotidine 20 Mg Tablet) 20 mg PO BID [facility] Last Admin: 12/29/21 21:05 Dose: 20 mg Glucose (Dextrose 31 Gm Oral.Susp) 15 gm PO PRN PRN PRN Reason: Hypoglycemia Heparin Sodium (Porcine) (Heparin 5,000 Unit/Ml Vial) 5,000 unit SQ Q12 [facility] Last Admin: 12/29/21 21:05 Dose: 5,000 unit Hydralazine HCl (Hydralazine 25 Mg Tablet) 100 mg PO TID [facility] Last Admin: 12/29/21 21:05 Dose: 100 mg Sodium Chloride (Sodium Chloride 0.9%) 1,000 mls @ 125 mls/hr IV .Q8H [facility] Last Admin: 12/30/21 03:38 Dose: 125 mls/hr Insulin Human Lispro (Insulin Lispro 1 Unit/0.01 Ml Unit) 0 unit SQ [facility]; Protocol Last Admin: 12/29/21 20:07 Dose: Not Given Ondansetron HCl (Ondansetron 4 Mg/2 Ml Vial) 4 mg IV Q6HP PRN PRN Reason: Nausea And Vomiting Prednisone (Prednisone 20 Mg Tablet) [address] [facility] Stop: 01/01/22 08:01 Senna (Sennosides 1 Tablet) 2 tab PO HS [facility] Last Admin: 12/29/21 21:05 Dose: 2 tab Sevelamer Carbonate (Sevelamer 800 Mg Tablet) 1,600 mg PO TIDCC [facility] Last Admin: 12/29/21 17:04 Dose: 1,600 mg Sodium Bicarbonate (Sodium Bicarbonate 650 Mg Tablet) 650 mg PO BID [facility] Last Admin: 12/29/21 21:05 Dose: 650 mg Sodium Chloride (0.9 % Sodium Chloride 10 Ml Syringe) 10 ml IV Q8 [facility] Last Admin: 12/30/21 05:36 Dose: Not Given Tamsulosin HCl (Tamsulosin 0.4 Mg Capsule) 0.4 mg PO QHS [facility] Last Admin: 12/29/21 21:05 Dose: 0.4 mg A/P Narrative A/P Narrative: A: #ANNA on CKD IV: -good uop #Hyperkalemia/hyperphosphatemia: improving #Anion gap metabolic acidosis: #Sinus bradycardia: resolved off diltiazem and still on BB #encephalopathy: Resolved #Gross hematuria: Likely related to Munoz trauma and BPH #Anemia, chronic: #Chronic diastolic heart failure: stable #Moderate aortic stenosis: #Type 2 DM: #HTN: #Lung mass: recently found at [facility] in October, an outpatient biopsy was scheduled but I do not think it happened. #CHELY: #Prednisone use chronic: Patient not sure why is on prednisone but thinks he has been on it for long time Plan -hold IV fluid for now -Monitor renal function, urine output, volume status. -Follow potassium level, may require additional interventions including potassium binder. -If renal function or potassium level worsen will consult nephrology. -Started sodium bicarbonate bid -Started sevelamer tid -SSI -Hold home lisinopril for hyperkalemia and ANNA, Lasix for ANNA, diltiazem for bradycardia, and glipizide. -Continue home Coreg/hydralazine -Attempt to clarify home prednisone -PT consult. -Address goals of care, plan for renal replacement therapy -f/u with pcp for lung mass biopsy if that is within goals of care -ppx: heparin SQ to SCD and follow-up hematuria / home h2 Code status: Sprayer Hand Spent With Patient Time: Total time spent is greater than 50% in coordination of care (as documented) at patient's floor/unit and/or counseling patient: Total time spent with greater than 50% in coordination of care (as documented) at patient's floor/unit and/or counseling patient:: 35 - 50 minutes QUALITY VTE Deep Vein Thrombosis/Pulmonary Embolism Present on Admission: No
[2021-12-30 07:56] LABS: ALT/SGPT 10 U/L (<40); AST/SGOT 13 U/L (<40); Albumin 2.7 gm/dL (3.2-5.2); Albumin/Globulin Ratio 0.9 (1.0-2.3); Alkaline Phosphatase 84 U/L (39-117); Bilirubin,Direct < 0.2 mg/dL (0-0.3); Bilirubin,Total 0.4 mg/dL (0.1-1.0); Blood Urea Nitrogen 87 mg/dL (8-23); Calcium 8.7 mg/dL (8.6-10.4); Carbon Dioxide 18 mmol/L (22-30); Chloride 102 mmol/L (96-108); Glomerular Filtration Rate 11; Glucose 48 mg/dL (70-105); Lactate Dehydrogenase 117 U/L (135-225); Phosphorous 6.9 mg/dL (2.5-4.5); Triglycerides 60 mg/dL (<150); Uric Acid 7.5 mg/dL (2.5-8.0)
[2021-12-30] MEDS ORDERED: predniSONE 20 MG TABLET PO SCH (08:00)
[2021-12-30] MEDS: SODIUM BICARBONATE 650 MG TABLET PO SCH ×2 (08:37→20:12)
[2021-12-30] MEDS: hydrALAZINE 25 MG TABLET PO SCH ×3 (08:37→20:12)
[2021-12-30] MEDS: DOCUSATE SODIUM 100 MG CAPSULE PO SCH ×2 (08:38→20:12)
[2021-12-30] MEDS: SEVELAMER 800 MG TABLET PO SCH ×3 (08:38→16:53)
[2021-12-30] MEDS: CALCITRIOL 0.25 MCG CAPSULE PO SCH (08:38)
[2021-12-30] MEDS: ATORVASTATIN 10 MG TABLET PO SCH (08:38)
[2021-12-30] MEDS: CARVEDILOL 3.125 MG TABLET PO SCH ×2 (08:39→16:53)
[2021-12-30] MEDS: FAMOTIDINE 20 MG TABLET PO SCH ×2 (08:39→20:13)
[2021-12-30] MEDS: HEPARIN 5,000 UNIT/ML VIAL SQ SCH (08:40)
[2021-12-30] MEDS: INSULIN LISPRO 1 UNIT/0.01 ML UNIT SQ SCH ×4 (08:40→20:12)
--- NOTE | 2021-12-30 08:52 | EKG ---
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 Measurements Intervals [place] Rate: 39 P: 72 ME: 200 QRS: 42 QRSD: 176 T: 28 QT: 585 QTc: 472 Interpretive Statements Profound Sinus bradycardia; rate 39 bpm Right bundle branch block Electronically Signed On 12-30-2021 8:52:30 PDT by Jimmy Gold M.D. /store/[email or web address]/[id number]
[2021-12-30] MEDS: ACETAMINOPHEN 325 MG TABLET PO PRN ×2 (09:46→21:46)
[2021-12-30] MEDS ORDERED: SODIUM BICARBONATE 650 MG TABLET PO ONE (10:06)
[2021-12-30] MEDS: TAMSULOSIN 0.4 MG CAPSULE PO SCH (20:11)
[2021-12-30] MEDS: SENNOSIDES 1 TABLET PO SCH (20:11)
[2021-12-31] MEDS: 0.9 % SODIUM CHLORIDE 10 ML SYRINGE IV SCH ×3 (05:49→20:27)
[2021-12-31 06:29] LABS: Basophils # (Auto) 0.01 K/mcL (0.00-0.30); Basophils % (Auto) 0.1 % (0.0-2.0); Eosinophils # (Auto) 0.01 K/mcL (0.00-0.70); Eosinophils % (Auto) 0.1 % (0.0-7.0); Hematocrit 26.5 % (40.1-51.0); Hemoglobin 8.3 g/dL (13.7-17.5); Lymphocytes # (Auto) 0.64 K/mcL (1.50-4.80); Lymphocytes % (Auto) 4.5 % (15.5-49.0); Mean Cell Volume 87.7 fL (80.0-100.0); Mean Corpuscular HGB Conc 31.3 g/dL (31.0-36.0); Mean Platelet Volume 9.5 fL (7.4-10.4); Monocytes # (Auto) 0.54 K/mcL (0.10-0.90); Monocytes % (Auto) 3.8 % (1.0-12.0); Neutrophils % (Auto) 90.9 % (38.0-78.0); Platelet Count 229 K/mcL (140-440); RBC 3.02 M/mcL (4.63-6.08); Red Cell Distribution Width 15.9 % (11.5-14.5); WBC 14.4 K/mcL (4.5-11.0)
[2021-12-31 06:51] LABS: ALT/SGPT 10 U/L (<40); AST/SGOT 10 U/L (<40); Albumin 2.8 gm/dL (3.2-5.2); Albumin/Globulin Ratio 0.9 (1.0-2.3); Alkaline Phosphatase 83 U/L (39-117); Bilirubin,Direct < 0.2 mg/dL (0-0.3); Bilirubin,Total 0.3 mg/dL (0.1-1.0); Blood Urea Nitrogen 83 mg/dL (8-23); Calcium 9.1 mg/dL (8.6-10.4); Carbon Dioxide 18 mmol/L (22-30); Chloride 99 mmol/L (96-108); Globulin 3.1 gm/dL (2.2-3.7); Glomerular Filtration Rate 11; Glucose 101 mg/dL (70-105); Lactate Dehydrogenase 113 U/L (135-225); Phosphorous 6.4 mg/dL (2.5-4.5); Triglycerides 59 mg/dL (<150); Uric Acid 7.8 mg/dL (2.5-8.0)
--- NOTE | 2021-12-31 07:43 | Internal Med Progress Note ---
SUBJECTIVE Subjective Patient information: Note initiated : 12/31/21 at 7:42 am Service Date, if different from initiated Date: [] Patient: Rito Fleming 76 y/o M admitted on 12/29/21 for stroke. Chief Complaint: [] Interval history: History of present illness: Mr. Fleming is a 76 year old male with a history of hypertension, diabetes mellitus, HFpEF, moderate aortic stenosis, CKD stage 4, lung mass, CHELY presented to the ED for an acute episode of confusion at home. Symptoms resolved in the ED, CT head and MRI brain did not show any acute changes. The patient was found to have an acute on chronic kidney disease injury and hyperkalemia in the emergency department. Hospital medicine was consulted for admission for acute kidney injury and hyperkalemia. 12/30 Patient found to have gross hematuria overnight. Suspect related to Munoz catheter placement and withdrawal and BPH. Patient does describe BPH symptoms when asked. Munoz catheter removed yesterday evening. We will stop the heparin and place on SCDs. Creatinine 4.7 today. Looking at old labs his creatinine was 4.0 December 03 and prior to that it had ranged between 2.9-3.9. Potassium is within normal limits. Some acidosis with a bicarb of 18. Phosphorus elevated but improved him yesterday. Patient is on prednisone 20 mg daily but he does not know why or how long he has been on it. 12/31 Patient says he is feeling little better but he appears quite weak. The dry cough that is unchanged and he denies shortness of breath. Does complain of dysuria. Asked about a biopsy that was set up at [facility] upon discharge but he says it has not been done yet. White blood cell count elevated today. He had a T-max of 100.2 yesterday. Patient denies any fevers chills chest or abdominal pain. No diarrhea. Hematuria resolved. Review of Systems: denies headache/fever/chills/nausea/vomiting/chest or abdominal pain/diarrhea. Otherwise see above. Constitutional Vitals: Vital Signs Temp Pulse Resp BP Pulse Ox O2 Del Method 98.2 F 86 16 120/58 97 12/31/21 03:37 12/31/21 03:37 12/31/21 03:37 12/31/21 03:37 12/31/21 03:37 12/31/21 03:37 Period Temp Pulse Resp BP Sys/Nielsen Pulse Ox O2 Del Method O2 Flow Rate Last 24 Hr 98.2 F-100.2 F 79-92 16-20 116-146/51-71 95-97 Room Air-Room Air Intake and Output 12/30/21 12/31/21 12/31/21 21:59 05:59 13:59 Intake Total 800 1140 Output Total 1350 575 Balance -550 565 Weight 90.775 kg Intake & Output: Intake & Output 12/30/21 12/31/21 12/31/21 21:59 05:59 13:59 Intake Total 800 1140 Output Total 1350 575 Balance -550 565 Weight 90.775 kg Intake: Oral 800 1140 Output: Urine Catheter Amount 350 Void Amount 1000 575 Other: Meal Tuna salad/crackers Percent of Meal Consumed 100% Feeding Ability Independent Urine Appearance Clear Clear Urine Color Dark Yellow Yellow Urine Odor Normal Normal # Voids 1 Exam: General: Sleepy but awakens easily, No acute Distress, appears quite weak and fatigued Eyes/N/T: EOMI, Head/Neck: neck supple, CV: RRR, No murmurs, Pulm: mild rhonchi, diminished b/l, no wheezing Abd: soft, nontender, +BS x4 Ext: no clubbing/cyanosis/edema Neuro: Alert, no focal deficits, moves all extremities, Skin: warm/dry OBJ DATA Labs CBC & Chem 7: 12/31/21 05:48 12/31/21 05:48 Labs: Abnormal Lab Results 12/31/21 12/31/21 12/30/21 05:48 05:48 05:55 WBC 14.4 H RBC 3.02 L Hgb 8.3 L Hct 26.5 L POC Hct RDW 15.9 H Immature Gran % (Auto) 0.6 H Neut % (Auto) 90.9 H Lymph % (Auto) 4.5 L Lymph # (Auto) 0.64 L Immature Gran # 0.08 H Absolute Neutrophils 13.07 H Sodium 132 L POC Potassium Potassium Carbon Dioxide 18 L 18 L POC Total CO2 Anion Gap POC BUN BUN 83 H 87 H Creatinine 4.7 H 4.7 H POC Creatinine Glucose 48 L POC Glucose Uric Acid POC WB Ioniz Calcium Phosphorus 6.4 H* 6.9 H* Lactate Dehydrogenase 113 L 117 L Total Protein 5.7 L Albumin 2.8 L 2.7 L Globulin Albumin/Globulin Ratio 0.9 L 0.9 L Urine Protein Urine Mucus POC Troponin I 12/30/21 12/29/21 12/29/21 05:55 14:03 05:51 WBC RBC 2.98 L Hgb 8.3 L 8.6 L Hct 26.3 L POC Hct RDW 15.9 H Immature Gran % (Auto) Neut % (Auto) 79.5 H Lymph % (Auto) 9.4 L Lymph # (Auto) 0.94 L Immature Gran # Absolute Neutrophils Sodium POC Potassium Potassium Carbon Dioxide 19 L POC Total CO2 Anion Gap 17.0 H POC BUN BUN 93 H Creatinine 5.0 H* POC Creatinine Glucose 239 H POC Glucose Uric Acid 8.2 H POC WB Ioniz Calcium Phosphorus 9.1 H* Lactate Dehydrogenase 116 L Total Protein 5.3 L Albumin 2.9 L Globulin Albumin/Globulin Ratio Urine Protein Urine Mucus POC Troponin I 12/29/21 12/28/21 12/28/21 05:51 20:59 20:59 WBC RBC 3.17 L Hgb 8.7 L Hct 27.5 L POC Hct RDW 15.9 H Immature Gran % (Auto) Neut % (Auto) Lymph % (Auto) 11.4 L Lymph # (Auto) 0.85 L Immature Gran # Absolute Neutrophils Sodium 132 L POC Potassium Potassium 5.2 H 5.4 H Carbon Dioxide 16 L POC Total CO2 Anion Gap 19.0 H POC BUN BUN 92 H Creatinine 4.9 H POC Creatinine Glucose 246 H POC Glucose Uric Acid POC WB Ioniz Calcium Phosphorus 8.3 H* Lactate Dehydrogenase Total Protein Albumin 2.8 L Globulin Albumin/Globulin Ratio Urine Protein Urine Mucus POC Troponin I 12/28/21 12/28/21 12/28/21 19:35 18:00 14:00 WBC RBC Hgb Hct POC Hct 30.0 L RDW Immature Gran % (Auto) Neut % (Auto) Lymph % (Auto) Lymph # (Auto) Immature Gran # Absolute Neutrophils Sodium POC Potassium 5.2 H Potassium Carbon Dioxide 17 L POC Total CO2 18.0 L Anion Gap 21.0 H POC BUN 109 H* BUN 87 H Creatinine 5.2 H* POC Creatinine 5.9 H* Glucose 106 H POC Glucose 182 H Uric Acid POC WB Ioniz Calcium 1.14 L Phosphorus Lactate Dehydrogenase Total Protein Albumin 3.1 L Globulin 3.8 H Albumin/Globulin Ratio 0.8 L Urine Protein 100 mg/dl A Urine Mucus Few A POC Troponin I 12/28/21 12/28/21 12/28/21 14:00 13:58 13:57 WBC RBC 3.76 L Hgb 10.4 L Hct 33.2 L POC Hct 34.0 L RDW 15.9 H Immature Gran % (Auto) Neut % (Auto) 86.6 H Lymph % (Auto) 6.7 L Lymph # (Auto) 0.66 L Immature Gran # Absolute Neutrophils 8.53 H Sodium POC Potassium Potassium Carbon Dioxide POC Total CO2 19.0 L Anion Gap POC BUN 111 H* BUN Creatinine POC Creatinine 6.1 H* Glucose POC Glucose 111 H Uric Acid POC WB Ioniz Calcium Phosphorus Lactate Dehydrogenase Total Protein Albumin Globulin Albumin/Globulin Ratio Urine Protein Urine Mucus POC Troponin I 0 L Meds: Medications Acetaminophen (Acetaminophen 325 Mg Tablet) 650 mg PO Q6HP PRN; Protocol PRN Reason: Per Pain Protocol/Fever > 101 Last Admin: 12/30/21 21:46 Dose: 650 mg Atorvastatin Calcium (Atorvastatin 10 Mg Tablet) 2.5 mg PO DAILY [facility] Last Admin: 12/30/21 08:38 Dose: 2.5 mg Calcitriol (Calcitriol 0.25 Mcg Capsule) 0.25 mcg PO [id number] [facility] Last Admin: 12/30/21 08:38 Dose: 0.25 mcg Carvedilol (Carvedilol 3.125 Mg Tablet) 3.125 mg PO BIDCC [facility] Last Admin: 12/30/21 16:53 Dose: 3.125 mg Dextrose (Dextrose 50% 50 Ml Vial) 0 ml IV UD PRN PRN Reason: Per Sliding Scale Diagnostic Test (Pha) (Accu-Chek 1 Each Strip) 1 each FS ACHS [facility] Last Admin: 12/30/21 20:04 Dose: 1 each Docusate Sodium (Docusate Sodium 100 Mg Capsule) 100 mg PO BID [facility] Last Admin: 12/30/21 20:12 Dose: 100 mg Famotidine (Famotidine 20 Mg Tablet) 20 mg PO HS [facility] Last Admin: 12/30/21 20:13 Dose: 20 mg Glucose (Dextrose 31 Gm Oral.Susp) 15 gm PO PRN PRN PRN Reason: Hypoglycemia Hydralazine HCl (Hydralazine 25 Mg Tablet) 100 mg PO TID [facility] Last Admin: 12/30/21 20:12 Dose: 100 mg Insulin Human Lispro (Insulin Lispro 1 Unit/0.01 Ml Unit) 0 unit SQ ACHS [facility]; Protocol Last Admin: 12/30/21 20:12 Dose: 6 units Ondansetron HCl (Ondansetron 4 Mg/2 Ml Vial) 4 mg IV Q6HP PRN PRN Reason: Nausea And Vomiting Prednisone (Prednisone 20 Mg Tablet) [facility] Stop: 01/01/22 08:01 Last Admin: 12/30/21 08:39 Dose: 20 mg Senna (Sennosides 1 Tablet) 2 tab PO HS [facility] Last Admin: 12/30/21 20:11 Dose: 2 tab Sevelamer Carbonate (Sevelamer 800 Mg Tablet) 1,200 mg PO TIDCC [facility] Last Admin: 12/30/21 16:53 Dose: 1,200 mg Sodium Bicarbonate (Sodium Bicarbonate 650 Mg Tablet) 650 mg PO BID [facility] Stop: 12/31/21 22:00 Last Admin: 12/30/21 20:12 Dose: 650 mg Sodium Chloride (0.9 % Sodium Chloride 10 Ml Syringe) 10 ml IV Q8 [facility] Last Admin: 12/31/21 05:49 Dose: 10 ml Tamsulosin HCl (Tamsulosin 0.4 Mg Capsule) 0.4 mg PO QHS [facility] Last Admin: 12/30/21 20:11 Dose: 0.4 mg A/P Narrative A/P Narrative: A: #ANNA on CKD IV: -5.2>>4.7>4.7 -good uop #Hyperkalemia/hyperphosphatemia: improving #Anion gap metabolic acidosis: #leukocytosis: ?unknown etiology reactive from lung mass vs steroids vs other. check man diff and pct, ua neg, cxr with known mass #Sinus bradycardia: resolved off diltiazem and still on BB #encephalopathy: Resolved #Gross hematuria: Likely related to Munoz trauma and BPH. resolved #Anemia, chronic: #Chronic diastolic heart failure: stable #Moderate aortic stenosis: #Type 2 DM: #HTN: #Lung mass: recently found at [facility] in October, an outpatient biopsy was scheduled but I do not think it happened. #CHELY: #Prednisone use ?chronic?: Patient not sure why is on prednisone or how long he has been on Plan -IV fluid today -Monitor renal function, urine output, volume status. -If renal function or potassium level worsen will consult nephrology. -Started sodium bicarbonate bid -Started sevelamer tid -check UA, pct, man diff, CT chest given leukocytosis and lung pathology -SSI -Hold home lisinopril for hyperkalemia and ANNA, Lasix for ANNA, diltiazem for bradycardia, and glipizide. -Continue home Coreg/hydralazine -Attempt to clarify home prednisone -PT consult. 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
[2021-12-31] MEDS ORDERED: predniSONE 20 MG TABLET PO SCH (08:00)
[2021-12-31] MEDS ORDERED: 0.9 % SODIUM CHLORIDE 1,000 ML IV SCH (08:00)
[2021-12-31] MEDS: CARVEDILOL 3.125 MG TABLET PO SCH ×2 (08:08→17:01)
[2021-12-31] MEDS: hydrALAZINE 25 MG TABLET PO SCH ×3 (08:08→20:29)
[2021-12-31] MEDS: DOCUSATE SODIUM 100 MG CAPSULE PO SCH ×2 (08:09→20:28)
[2021-12-31] MEDS: SODIUM BICARBONATE 650 MG TABLET PO SCH ×2 (08:09→20:27)
[2021-12-31] MEDS: ATORVASTATIN 10 MG TABLET PO SCH (08:09)
[2021-12-31] MEDS: SEVELAMER 800 MG TABLET PO SCH ×3 (08:10→17:01)
[2021-12-31] MEDS: INSULIN LISPRO 1 UNIT/0.01 ML UNIT SQ SCH ×4 (08:11→20:28)
[2021-12-31 09:15] LABS: Anisocytosis 1+ (None Seen); Band Neutrophils % 3 % (0-10); Hypochromasia FEW (None Seen); Lymphocytes % 6 % (15-49); Monocytes % (Manual) 4 % (1-12); Platelet Estimate NORMAL (Normal); RBC Morphology ABNORMAL (Normal); Segmented Neutrophils % 87 % (38-78)
[2021-12-31] MEDS: ACETAMINOPHEN 325 MG TABLET PO PRN (09:24)
--- NOTE | 2021-12-31 11:33 | Cat Scan Report ---
History: Leukocytosis, lung mass, stroke, possible pneumonia TECHNIQUE: The chest was imaged without contrast in axial plane at 2.5 mm intervals. Sagittal, coronal and axial MIPS images were created. The radiation exposure was limited using dose reduction technology. FINDINGS: There is an irregularly-shaped heterogeneous tumor located medially in the left upper lobe. This invades the mediastinum and abuts the lateral border of the aortic arch. There is a loss of the fat plane between the tumor and the aorta. The tumor does not encase the aorta. It Measures 5.3 x 5.7 x 6.0 cm. Allowing for differences in technique, there has been little change in size or appearance of the tumor compared with the prior CTs done on 10/22/2021 and 11/27/2021. No new lung mass has developed. Patient has small to moderate-sized bilateral layering pleural effusions, right greater than left. These were larger on the prior CT scans. There is a stable small pericardial effusion. The pleural effusions are causing mild atelectasis in the posterior basal segments of both lower lobes. No acute infiltrate has developed. The heart size is upper limits of normal. There are couple small lymph nodes in the superior mediastinum behind the manubrium. They measure up to 1.2 cm. These also remain stable. IMPRESSION: Stable tumor in the left upper lobe invading the mediastinum. This is probably a primary lung cancer. It has not progressed. Bilateral layering pleural effusions with improvement on the right side Mild atelectasis posteriorly in both lower lobes Interpreted and Authenticated by: Jason Gold 12/31/21
[2021-12-31 15:20] LABS: Appearance,Urine Slightly Cloudy (Clear); Bacteria,Urine FEW /hpf (0); Bilirubin,Urine Negative (Negative); Color,Urine Yellow; Culture Indicated,Urine yes; Glucose,Urine (UA) Negative (Negative); Ketones,Urine Negative (Negative); Leukocyte Esterase,Urine Moderate /uL (Negative); Nitrate,Urine Negative (Negative); Protein,Urine >=300 mg/dL mg/dL (Negative); Specific Gravity,Urine 1.015 (1.000-1.035); Urine Blood Large ery/mcL (Negative); Urine RBC 79 /hpf (0-3); Urine Squamous Epithelial Cell 0 /hpf (0-4); Urine WBC > 182 /hpf (0-4); Urobilinogen,Urine Normal
[2021-12-31] MEDS: cefTRIAXone 1 GM VIAL IV SCH (16:00)
[2021-12-31] MEDS: TAMSULOSIN 0.4 MG CAPSULE PO SCH (20:27)
[2021-12-31] MEDS: FAMOTIDINE 20 MG TABLET PO SCH (20:28)
[2021-12-31] MEDS: SENNOSIDES 1 TABLET PO SCH (20:28)
[2022-01-01] MEDS: 0.9 % SODIUM CHLORIDE 10 ML SYRINGE IV SCH ×3 (05:36→20:54)
[2022-01-01 06:46] LABS: Hematocrit 25.8 % (40.1-51.0); Mean Cell Volume 88.4 fL (80.0-100.0); Mean Platelet Volume 9.5 fL (7.4-10.4); Platelet Count 204 K/mcL (140-440); RBC 2.92 M/mcL (4.63-6.08); Red Cell Distribution Width 16.1 % (11.5-14.5); WBC 16.7 K/mcL (4.5-11.0)
[2022-01-01 07:47] LABS: ALT/SGPT 10 U/L (<40); AST/SGOT 13 U/L (<40); Albumin 2.6 gm/dL (3.2-5.2); Albumin/Globulin Ratio 0.8 (1.0-2.3); Alkaline Phosphatase 79 U/L (39-117); Bilirubin,Direct < 0.2 mg/dL (0-0.3); Bilirubin,Total 0.3 mg/dL (0.1-1.0); Blood Urea Nitrogen 89 mg/dL (8-23); Calcium 9.2 mg/dL (8.6-10.4); Carbon Dioxide 19 mmol/L (22-30); Chloride 102 mmol/L (96-108); Globulin 3.1 gm/dL (2.2-3.7); Glomerular Filtration Rate 11; Glucose 90 mg/dL (70-105); Lactate Dehydrogenase 100 U/L (135-225); Phosphorous 6.7 mg/dL (2.5-4.5); Triglycerides 49 mg/dL (<150); Uric Acid 7.9 mg/dL (2.5-8.0)
[2022-01-01] MEDS: INSULIN LISPRO 1 UNIT/0.01 ML UNIT SQ SCH ×4 (07:48→20:49)
--- NOTE | 2022-01-01 07:52 | Internal Med Progress Note ---
SUBJECTIVE Subjective Patient information: Note initiated : 01/01/22 at 7:42 am Service Date, if different from initiated Date: [] Patient: Rito Fleming 76 y/o M admitted on 12/29/21 for stroke. Chief Complaint: [] Interval history: History of present illness: Mr. Fleming is a 76 year old male with a history of hypertension, diabetes mellitus, HFpEF, moderate aortic stenosis, CKD stage 4, lung mass, CHELY presented to the ED for an acute episode of confusion at home. Symptoms resolved in the ED, CT head and MRI brain did not show any acute changes. The patient was found to have an acute on chronic kidney disease injury and hyperkalemia in the emergency department. Hospital medicine was consulted for admission for acute kidney injury and hyperkalemia. 12/30 Patient found to have gross hematuria overnight. Suspect related to Munoz catheter placement and withdrawal and BPH. Patient does describe BPH symptoms when asked. Munoz catheter removed yesterday evening. We will stop the heparin and place on SCDs. Creatinine 4.7 today. Looking at old labs his creatinine was 4.0 December 03 and prior to that it had ranged between 2.9-3.9. Potassium is within normal limits. Some acidosis with a bicarb of 18. Phosphorus elevated but improved him yesterday. Patient is on prednisone 20 mg daily but he does not know why or how long he has been on it. 12/31 Patient says he is feeling little better but he appears quite weak. The dry cough that is unchanged and he denies shortness of breath. Does complain of dysuria. Asked about a biopsy that was set up at [facility] upon discharge but he says it has not been done yet. White blood cell count elevated today. He had a T-max of 100.2 yesterday. Patient denies any fevers chills chest or abdominal pain. No diarrhea. Hematuria resolved. Found further clarification on the prednisone prescription. Was seen by a cashier ticket selling up in [place] in December 06 who wrote for 14-day cou rse of prednisone 20mg daily. Thus he must not have been on prednisone just prior current admission. His leukocytosis is likely the result of restarting prednisone. 01/01 Patient says he is feeling better today. However, his white cell count is bit higher. His creatinine has not changed and his phosphorus is a little bit elevated compared to yesterday. Will discuss the case with nephrology. The size of the tumor appears to be the same as in October and November. Review of Systems: denies headache/fever/chills/nausea/vomiting/chest or abdominal pain/diarrhea. Otherwise see above. Constitutional Vitals: Vital Signs Temp Pulse Resp BP Pulse Ox O2 Del Method 98.9 F 71 14 136/66 96 01/01/22 03:56 01/01/22 03:56 01/01/22 03:56 01/01/22 03:56 01/01/22 03:56 01/01/22 03:56 Period Temp Pulse Resp BP Sys/Nielsen Pulse Ox O2 Del Method O2 Flow Rate Last 24 Hr 97.8 F-98.9 F 71-100 14-17 108-156/53-78 94-96 Room Air-Room Air Intake and Output 12/31/21 01/01/22 01/01/22 21:59 05:59 13:59 Intake Total 480 1150 Output Total 101 626 Balance 379 524 Weight 91.172 kg Intake & Output: Intake & Output 12/31/21 01/01/22 01/01/22 21:59 05:59 13:59 Intake Total 480 1150 Output Total 101 626 Balance 379 524 Weight 91.172 kg Intake: IV 1000 Sodium Chloride 0.9% 1,000 ml @ 1000 75 mls/hr IV .[id number] [facility] Rx#: [id number] Oral 480 150 Output: Void Amount 100 625 # of times incontinent of urine 1 1 Other: Meal Dinner Percent of Meal Consumed 100% Urine Appearance Clear Urine Color Yellow Urine Odor Normal Stool Size Small Stool Color Brown Stool Consistency Soft # Voids 1 Exam: General: alert and awakey, No acute Distress, appears quite weak and fatigued Eyes/N/T: EOMI, Head/Neck: neck supple, CV: RRR, 2/6SM, Pulm: mild rhonchi, diminished b/l, no wheezing Abd: soft, nontender, +BS x4 Ext: no clubbing/cyanosis/edema Neuro: Alert, no focal deficits, moves all extremities, Skin: warm/dry OBJ DATA Labs CBC & Chem 7: 01/01/22 05:36 01/01/22 05:36 Labs: Abnormal Lab Results 01/01/22 01/01/22 01/01/22 05:36 05:36 05:36 WBC 16.7 H RBC 2.92 L Hgb 8.0 L Hct 25.8 L RDW 16.1 H Immature Gran % (Auto) Neut % (Auto) Lymph % (Auto) Lymph # (Auto) Seg Neutrophils % Lymphocytes % Immature Gran # Absolute Neutrophils RBC Morphology Hypochromasia Anisocytosis Sodium Carbon Dioxide BUN Creatinine Glucose Phosphorus Lactate Dehydrogenase C-Reactive Protein 17.00 H Total Protein Albumin Albumin/Globulin Ratio Procalcitonin 2.51 H Urine Appearance Urine Protein Urine Occult Blood Ur Leukocyte Esterase Urine RBC Urine WBC Urine Bacteria 12/31/21 12/31/21 12/31/21 14:10 05:48 05:48 WBC 14.4 H RBC 3.02 L Hgb 8.3 L Hct 26.5 L RDW 15.9 H Immature Gran % (Auto) 0.6 H Neut % (Auto) 90.9 H Lymph % (Auto) 4.5 L Lymph # (Auto) 0.64 L Seg Neutrophils % Lymphocytes % Immature Gran # 0.08 H Absolute Neutrophils 13.07 H RBC Morphology Hypochromasia Anisocytosis Sodium 132 L Carbon Dioxide 18 L BUN 83 H Creatinine 4.7 H Glucose Phosphorus 6.4 H* Lactate Dehydrogenase 113 L C-Reactive Protein Total Protein Albumin 2.8 L Albumin/Globulin Ratio 0.9 L Procalcitonin Urine Appearance Slightly cloudy A Urine Protein >=300 mg/dl A Urine Occult Blood Large A Ur Leukocyte Esterase Moderate A Urine RBC 79 H Urine WBC > 182 H Urine Bacteria Few A 12/31/21 12/31/21 12/31/21 05:40 05:40 05:40 WBC RBC Hgb Hct RDW Immature Gran % (Auto) Neut % (Auto) Lymph % (Auto) Lymph # (Auto) Seg Neutrophils % 87 H Lymphocytes % 6 L Immature Gran # Absolute Neutrophils RBC Morphology Abnormal A Hypochromasia Few A Anisocytosis 1+ A Sodium Carbon Dioxide BUN Creatinine Glucose Phosphorus Lactate Dehydrogenase C-Reactive Protein 10.10 H Total Protein Albumin Albumin/Globulin Ratio Procalcitonin 0.77 H Urine Appearance Urine Protein Urine Occult Blood Ur Leukocyte Esterase Urine RBC Urine WBC Urine Bacteria 12/30/21 12/30/21 12/29/21 05:55 05:55 14:03 WBC RBC 2.98 L Hgb 8.3 L 8.6 L Hct 26.3 L RDW 15.9 H Immature Gran % (Auto) Neut % (Auto) 79.5 H Lymph % (Auto) 9.4 L Lymph # (Auto) 0.94 L Seg Neutrophils % Lymphocytes % Immature Gran # Absolute Neutrophils RBC Morphology Hypochromasia Anisocytosis Sodium Carbon Dioxide 18 L BUN 87 H Creatinine 4.7 H Glucose 48 L Phosphorus 6.9 H* Lactate Dehydrogenase 117 L C-Reactive Protein Total Protein 5.7 L Albumin 2.7 L Albumin/Globulin Ratio 0.9 L Procalcitonin Urine Appearance Urine Protein Urine Occult Blood Ur Leukocyte Esterase Urine RBC Urine WBC Urine Bacteria Meds: Medications Acetaminophen (Acetaminophen 325 Mg Tablet) 650 mg PO Q6HP PRN; Protocol PRN Reason: Per Pain Protocol/Fever > 101 Last Admin: 12/31/21 09:24 Dose: 650 mg Atorvastatin Calcium (Atorvastatin 10 Mg Tablet) 2.5 mg PO DAILY [facility] Last Admin: 12/31/21 08:09 Dose: 2.5 mg Calcitriol (Calcitriol 0.25 Mcg Capsule) 0.25 mcg PO [id number] [facility] Last Admin: 12/30/21 08:38 Dose: 0.25 mcg Carvedilol (Carvedilol 3.125 Mg Tablet) 3.125 mg PO BIDCC [facility] Last Admin: 12/31/21 17:01 Dose: 3.125 mg Ceftriaxone Sodium (Ceftriaxone 1 Gm Vial) 1 gm IV Q24H [facility]; Protocol Last Admin: 12/31/21 16:00 Dose: 1 gm Dextrose (Dextrose 50% 50 Ml Vial) 0 ml IV UD PRN PRN Reason: Per Sliding Scale Diagnostic Test (Pha) (Accu-Chek 1 Each Strip) 1 each FS ACHS [facility] Last Admin: 12/31/21 19:36 Dose: 1 each Docusate Sodium (Docusate Sodium 100 Mg Capsule) 100 mg PO BID [facility] Last Admin: 12/31/21 20:28 Dose: 100 mg Famotidine (Famotidine 20 Mg Tablet) 20 mg PO HS [facility] Last Admin: 12/31/21 20:28 Dose: 20 mg Glucose (Dextrose 31 Gm Oral.Susp) 15 gm PO PRN PRN PRN Reason: Hypoglycemia Heparin Sodium (Porcine) (Heparin 5,000 Unit/Ml Vial) 5,000 unit SQ Q12 [facility] Hydralazine HCl (Hydralazine 25 Mg Tablet) 100 mg PO TID [facility] Last Admin: 12/31/21 20:29 Dose: 100 mg Insulin Human Lispro (Insulin Lispro 1 Unit/0.01 Ml Unit) 0 unit SQ ACHS [facility]; Protocol Last Admin: 12/31/21 20:28 Dose: 6 units Ondansetron HCl (Ondansetron 4 Mg/2 Ml Vial) 4 mg IV Q6HP PRN PRN Reason: Nausea And Vomiting Senna (Sennosides 1 Tablet) 2 tab PO HS [facility] Last Admin: 12/31/21 20:28 Dose: 2 tab Sevelamer Carbonate (Sevelamer 800 Mg Tablet) 1,200 mg PO TIDCC [facility] Last Admin: 12/31/21 17:01 Dose: 1,200 mg Sodium Chloride (0.9 % Sodium Chloride 10 Ml Syringe) 10 ml IV Q8 [facility] Last Admin: 01/01/22 05:36 Dose: Not Given Tamsulosin HCl (Tamsulosin 0.4 Mg Capsule) 0.4 mg PO QHS [facility] Last Admin: 12/31/21 20:27 Dose: 0.4 mg A/P Narrative A/P Narrative: A: #ANNA on CKD IV: -5.2>>4.7>4.7>4.8 -good uop #Hyperkalemia/hyperphosphatemia: #Anion gap metabolic acidosis: #UA: #Leukocytosis: 2/2 likely UA + steroids + possibly malignancy from [facility]OR[facility] tumor invading mediastinum -no bandemia, afebrile, elevated procalcitonin could also be from malignancy #Sinus bradycardia: resolved off diltiazem and still on BB #encephalopathy: Resolved #Gross hematuria: Likely related to Munoz trauma and BPH. resolved #Anemia, chronic: #Chronic diastolic heart failure: stable #Moderate aortic stenosis: #Type 2 DM: #HTN: #Lung mass: recently found at [facility] in October, an outpatient biopsy was scheduled but did not happen #CHELY: Plan -s/p IVF -Monitor renal function, urine output, volume status. -consult nephrology. -Started sevelamer tid -SSI -Hold home lisinopril for hyperkalemia and ANNA, Lasix for ANNA, diltiazem for bradycardia, and glipizide. -Continue home Coreg/hydralazine -PT consult. 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
[2022-01-01 08:00] LABS: Anisocytosis 1+ (None Seen); Band Neutrophils % 5 % (0-10); Hypochromasia 1+ (None Seen); Lymphocytes % 5 % (15-49); Monocytes % (Manual) 1 % (1-12); Platelet Estimate NORMAL (Normal); Poikilocytosis 1+ (None Seen); RBC Morphology ABNORMAL (Normal); Reactive Lymphocytes 1 % (0-2); Segmented Neutrophils % 88 % (38-78)
[2022-01-01] MEDS: SEVELAMER 800 MG TABLET PO SCH ×3 (08:17→17:21)
[2022-01-01] MEDS: DOCUSATE SODIUM 100 MG CAPSULE PO SCH ×2 (08:20→20:49)
[2022-01-01] MEDS: ATORVASTATIN 10 MG TABLET PO SCH (08:24)
[2022-01-01] MEDS: CARVEDILOL 3.125 MG TABLET PO SCH ×2 (08:28→17:21)
[2022-01-01] MEDS: hydrALAZINE 25 MG TABLET PO SCH ×3 (08:28→20:54)
[2022-01-01] MEDS: HEPARIN 5,000 UNIT/ML VIAL SQ SCH ×2 (08:29→20:54)
[2022-01-01] MEDS: CALCITRIOL 0.25 MCG CAPSULE PO SCH (08:31)
--- NOTE | 2022-01-01 09:04 | Nephrology Consult Note ---
HPI Data of Consult Patient: known to practice within the last 3 years Consult date: 01/01/22 Requesting physician: Noe Laureano Primary Care Provider: RUT Campos Consult Narrative Patient Information: Note initiated : 01/01/22 at 8:53 am Patient: Rito Fleming 76 y/o M admitted on 12/29/21 for stroke. Chief Complaint: Confusion He has hypertension, diabetes mellitus, HFpEF, moderate aortic stenosis, CKD stage 5, lung mass, CHELY presented to the ED for an acute episode of confusion at home. Symptoms resolved in the ED, CT head and MRI brain did not show any acute changes. The patient was admitted for acute on chronic kidney disease injury and hyperkalemia in the emergency department. Chief complaint: Confusion Reason for consult: Acute kidney injury on chronic kidney disease stage 5 cc:: CC: Gigi Brower MD Constitutional Constitutional: Present fatigue and weakness EENT Nose, mouth and throat: Absent nasal congestion or sore throat Cardiovascular Cardiovascular: Absent chest pain or edema Respiratory Respiratory: Absent dyspnea or wheezing Gastrointestinal Gastrointestinal: Absent nausea or vomiting Musculoskeletal Musculoskeletal: Present muscle weakness; Absent joint swelling Integumentary Integumentary: Absent rash or wounds Neurological Neurological: Present weakness; Absent confusion Psychiatric Psychiatric: Absent confusion or panic attacks Hematologic/Lymphatic Hematologic/Lymphatic: Absent easy bleeding or easy bruising Allergic/Immunologic Allergic/Immunologic: Absent tongue swelling or uticaria PFSH PFSH All Active Problems (Updated 01/01/22 @ 08:54 by Jaun Post MD) Acute renal failure superimposed on stage 5 chronic kidney disease, not on chronic dialysis (Acute) Nocturia (Chronic) Hypertension (Chronic) Chronic kidney disease, stage 4 (severe) (Chronic) Diabetes mellitus (Chronic) Diabetic retinopathy (Chronic) Macular puckering (Chronic) Cellulitis (Chronic) Chronic sinusitis (Chronic) SOB (shortness of breath) (Chronic) Wheezing (Chronic) Acid reflux (Chronic) Urinary urgency (Chronic) Chronic stasis dermatitis (Chronic) Morbidly obese (Chronic) No significant past surgical history (Chronic) Hyperkalemia (Acute) Uncontrolled type 2 diabetes mellitus with stage 4 chronic kidney disease, with long-term current use of insulin (Chronic) 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) Hyperparathyroidism due to renal insufficiency (Chronic) Chronic kidney disease (CKD), stage IV (severe) (Chronic) Chronic diastolic CHF (congestive heart failure), NYHA class 2 (Chronic) Hypotension (Acute) CHF (congestive heart failure) (Acute) BPH (benign prostatic hyperplasia) (Acute) Essential hypertension (Chronic) Diabetes mellitus with chronic kidney disease, without long-term current use of insulin (Chronic) Acute neck pain (Acute) Acute neck pain (Acute) Viral syndrome (Acute) Acute anemia (Acute) Anemia due to stage 4 chronic kidney disease treated with darbepoetin (Acute) Iron deficiency (Acute) Mass of left lung (Acute) TIA (transient ischemic attack) (Acute) Transient confusion (Acute) ANNA (acute kidney injury) (Acute) Medical History (Updated 01/01/22 @ 08:54 by Jaun Post MD) Acid reflux Cellulitis Chronic diastolic CHF (congestive heart failure), NYHA class 2 Suspect HTN > valvular heart disease. 05/2021: Add diltiazem in place of amlodipine Chronic kidney disease (CKD), stage IV (severe) HTN, NSAIDs with nephrotic range proteinuria...suspect prior NSAIDS cause and doubt DM as HgA1c well controlled over the years. Since spring, there has been worsening of GFR to 14 cc/min but improved proteinuria Chronic kidney disease, stage 4 (severe) Most likely associated with diabetes mellitus type 2 with proteinuria present Chronic sinusitis Chronic stasis dermatitis Diabetes mellitus Diabetic nephropathy associated with type 2 diabetes mellitus Stable GFR and marked improvement in urine protein losses argues against DM nephropathy or marked improvement /therapeutic sucess with ACEi Diabetic retinopathy Hypertension Goal blood pressure is 130/80 He is not achieve that goal yet but is improved... Increase hydralazine to 100 mg 3 times a day on 11/13/2021 and continue lisinopril 20 mg a day and the diltiazem and carvedilol Macular puckering Morbidly obese Nocturia SOB (shortness of breath) Uncontrolled type 2 diabetes mellitus with stage 4 chronic kidney disease, with long-term current use of insulin Currently on 70/30 insulin as well as low-dose glipizide Urinary urgency Viral syndrome Wheezing Surgical History No significant past surgical history Social History (Updated 09/15/19 @ 19:21 by Vinnie Logan MD) smoking status: Former smoker alcohol intake frequency: does not drink substance use type: does not use MEDS/ALLERGIES Home Medications and Allergies Home Medications Medication Instructions Recorded Confirmed Type tamsulosin 0.4 mg capsule 0.4 mg PO QHS Prostate problems 01/04/20 12/29/21 History glipizide 10 mg tablet 10 mg PO QDAY 05/16/20 12/29/21 History diltiazem HCl 120 mg 120 mg PO QAM HTN and protein in 06/11/21 12/29/21 Rx capsule,extended release 24 hr urine #90 caps pravastatin 40 mg tablet 10 mg PO QDAY 06/11/21 12/29/21 History furosemide 20 mg tablet 20 mg PO BID #180 tabs 09/12/21 12/29/21 Rx lisinopril 20 mg tablet 20 mg PO QHS HTN, protein in urine 09/18/21 12/29/21 Rx #30 tabs calcitriol 0.25 mcg capsule 0.25 mcg PO 3XW 11/13/21 12/29/21 History carvedilol 3.125 mg tablet 3.125 mg PO BID 11/13/21 12/29/21 History darbepoetin isiah in polysorbat 60 60 mcg subcut Q2W 11/13/21 12/29/21 History mcg/mL in polysorbate injection (Aranesp) fluticasone propionate 50 1 spray intranasal QDAY PRN 11/13/21 12/29/21 History mcg/actuation nasal Hayfever spray,suspension hydralazine 100 mg tablet 100 mg PO TID #300 tabs 11/13/21 12/29/21 Rx famotidine 40 mg tablet 20 mg PO BID 12/13/21 12/29/21 History prednisone 20 mg tablet 20 mg PO QDAY 12/13/21 12/29/21 History Allergies Allergy/AdvReac Type Severity Reaction Status Date / Time doxazosin AdvReac Mild Vomiting Verified 12/31/21 07:18 Physical Examination Vital Signs Vital signs: Temp Pulse Resp BP Pulse Ox O2 Del Method 98.2 F 72 14 134/65 95 01/01/22 07:42 01/01/22 07:42 01/01/22 07:42 01/01/22 07:42 01/01/22 07:42 01/01/22 07:42 General Appearance General appearance: appears started age and chronically ill EENT EENT: mucous membranes moist Neck Neck: supple Respiratory Respiratory: clear Cardiovascular Cardiology: regular rate Gastrointestinal Gastrointestinal: no tenderness Integumentary Integumentary: no rash and warm and dry Neurologic Neurologic: no focal deficit and alert and oriented x3 Psychiatric Psychiatric: mood/affect appropriate and cooperative Results Lab Results Result Diagrams: 01/01/22 05:36 01/01/22 05:36 Lab results: Most recent lab results Calcium 9.2 mg/dL (8.6-10.4) 01/01/22 05:36 Phosphorus 6.7 mg/dL (2.5-4.5) H* 01/01/22 05:36 Magnesium 2.2 mg/dL (1.6-2.5) 01/01/22 05:36 A/P Assessment and plan (1) Acute renal failure superimposed on stage 5 chronic kidney disease, not on chronic dialysis: Assessment and plan: He has hypertension, diabetes mellitus, HFpEF, moderate aortic stenosis, CKD stage 4-5, lung mass, CHELY presented to the ED for an acute episode of confusion at home. Symptoms resolved in the ED, CT head and MRI brain did not show any acute changes. The patient was admitted for acute on chronic kidney disease injury and hyperkalemia in the emergency department. Nephrology consultation was requested for acute kidney injury. Acute kidney injury on chronic kidney disease stage 5, suspected worsening of chronic kidney disease stage 5, present on arrival. There is no recent history of IV contrast administration or NSAID use. Suspected acute cystitis, being treated. Work up: Urinalysis on 12/31/21: Yellow, slightly cloudy, pH 5.0, SG 1.015, protein >300, blood large, leukocyte esterase moderate, urine culture pending. Urine random total protein/creatinine on 12/03/21: 1,720 mg/g creatinine. Renal US on 08/03/15: No evidence of urinary tract obstruction or parenchymal scarring in either kidney. Diminished urine output bilaterally. Moderate-sized postvoid residual in the bladder. Cholelithiasis. 3 x 4 mm nonobstructing right renal stone. In 2016 hepatitis serologies negative, ASAD and ANCA negative, UPEP and immunofixation unremarkable. Heavy NSAID use in the past. Progress: Serum creatinine increased from 4.7 to 4.8 in the past 24 hours. Baseline serum creatinine: 2.7-2.9 (eGFR 20-23) in 2020, 3.9 (eGFR 14) on 09/12/21, 4.0 (eGFR 14) on 12/03/21. Urine output: 1,025 ml reported in the past 24 hours. Metabolic acidosis. Hyperphosphatemia. No fluid overload. I/O: +2.6L since admit. Uremic symptom: Weakness Discussion: No need for urgent hemodialysis, but chronic hemodialysis initiation in the near future recommended. Risks and benefits has been discussed with the patient. He agreed to proceed. Recommendations/Plan: Outpatient nephrology follow up with Dr. Logan. Outpatient chronic hemodialysis initiation after outpatient tunneled hemodialysis catheter placement at [facility] is considered after discharge. Status: Acute Time Spent With Patient Time: Total time spent is greater than 50% in coordination of care (as documented) at patient's floor/unit and/or counseling patient:
[2022-01-01] MEDS: cefTRIAXone 1 GM VIAL IV SCH (09:54)
[2022-01-01] MEDS: ACETAMINOPHEN 325 MG TABLET PO PRN (15:44)
[2022-01-01] MEDS: SENNOSIDES 1 TABLET PO SCH (20:48)
[2022-01-01] MEDS: TAMSULOSIN 0.4 MG CAPSULE PO SCH (20:54)
[2022-01-01] MEDS: FAMOTIDINE 20 MG TABLET PO SCH (20:54)
[2022-01-02] MEDS: 0.9 % SODIUM CHLORIDE 10 ML SYRINGE IV SCH (05:46)
[2022-01-02 06:27] LABS: Basophils # (Auto) 0.01 K/mcL (0.00-0.30); Basophils % (Auto) 0.2 % (0.0-2.0); Eosinophils # (Auto) 0 K/mcL (0.00-0.70); Eosinophils % (Auto) 0 % (0.0-7.0); Hematocrit 24.9 % (40.1-51.0); Hemoglobin 7.9 g/dL (13.7-17.5); Lymphocytes # (Auto) 0.34 K/mcL (1.50-4.80); Lymphocytes % (Auto) 5.2 % (15.5-49.0); Mean Cell Volume 88.3 fL (80.0-100.0); Mean Corpuscular HGB Conc 31.7 g/dL (31.0-36.0); Mean Platelet Volume 9.8 fL (7.4-10.4); Monocytes # (Auto) 0.36 K/mcL (0.10-0.90); Monocytes % (Auto) 5.5 % (1.0-12.0); Neutrophils % (Auto) 88.8 % (38.0-78.0); Platelet Count 173 K/mcL (140-440); RBC 2.82 M/mcL (4.63-6.08); Red Cell Distribution Width 15.9 % (11.5-14.5); WBC 6.6 K/mcL (4.5-11.0)
[2022-01-02 07:08] LABS: ALT/SGPT 10 U/L (<40); AST/SGOT 14 U/L (<40); Albumin 2.4 gm/dL (3.2-5.2); Albumin/Globulin Ratio 0.7 (1.0-2.3); Alkaline Phosphatase 78 U/L (39-117); Bilirubin,Direct < 0.2 mg/dL (0-0.3); Bilirubin,Total 0.3 mg/dL (0.1-1.0); Blood Urea Nitrogen 103 mg/dL (8-23); Carbon Dioxide 20 mmol/L (22-30); Chloride 102 mmol/L (96-108); Globulin 3.3 gm/dL (2.2-3.7); Glomerular Filtration Rate 10; Glucose 95 mg/dL (70-105); Lactate Dehydrogenase 105 U/L (135-225); Phosphorous 5.3 mg/dL (2.5-4.5); Triglycerides 71 mg/dL (<150); Uric Acid 9.1 mg/dL (2.5-8.0)
[2022-01-02] MEDS: INSULIN LISPRO 1 UNIT/0.01 ML UNIT SQ SCH ×2 (07:24→11:37)
--- NOTE | 2022-01-02 07:36 | Nephrology Progress Note ---
SUBJECTIVE Subjective Patient information: Note initiated : 01/02/22 at 7:34 am Patient: Rito Fleming 76 y/o M admitted on 12/29/21 for stroke. Chief Complaint: Confusion Pertinent ROS: Weakness Constitutional Vitals: Vital Signs Temp Pulse Resp BP Pulse Ox O2 Del Method 98.5 F 89 20 126/62 94 01/02/22 03:30 01/02/22 03:30 01/02/22 03:30 01/02/22 03:30 01/02/22 03:30 01/02/22 03:30 Period Temp Pulse Resp BP Sys/Nielsen Pulse Ox O2 Del Method O2 Flow Rate Last 24 Hr 98.0 F-99.5 F 72-94 12-20 116-146/56-72 94-97 Room Air-Room Air Intake and Output 01/01/22 01/02/22 01/02/22 21:59 05:59 13:59 Intake Total 240 490 Output Total 451 625 Balance -211 -135 Weight 197 lb Intake & Output: Intake & Output 01/01/22 01/02/22 01/02/22 21:59 05:59 13:59 Intake Total 240 490 Output Total 451 625 Balance -211 -135 Weight 197 lb Intake: Oral 240 490 Output: Void Amount 450 625 # of times incontinent of urine 1 Other: Meal Dinner Percent of Meal Consumed 100% Urine Appearance Clear Clear Urine Color Dark Yellow Yellow General appearance: cooperative and no acute distress Head Head exam: Present normal inspection Eye Eye exam: Present normal appearance ENT ENT exam: Present mucous membranes moist Respiratory Respiratory exam: Absent respiratory distress Cardiovascular Cardiovascular exam: Present normal rate and rhythm GI/Abdominal GI/Abdominal exam: Present soft; Absent tenderness Extremities Exam Extremities exam: Absent joint swelling or pedal edema Neurological Exam Neurological exam: Present alert and oriented X3 Psychiatric Psychiatric exam: Present normal affect and normal mood Skin Skin exam: Present warm; Absent rash A/P Assessment and plan (1) End-stage renal disease needing dialysis: Assessment and plan: He has hypertension, diabetes mellitus, HFpEF, moderate aortic stenosis, CKD stage 4-5, lung mass, CHELY presented to the ED for an acute episode of confusion at home. Symptoms resolved in the ED, CT head and MRI brain did not show any acute changes. The patient was admitted for acute on chronic kidney disease injury and hyperkalemia in the emergency department. Nephrology consultation was requested for acute kidney injury. Chronic kidney disease stage 5, progressed to end stage renal disease with eGFR 10 and uremeic symptoms as weakness and initial confusion. Acute cystitis with positive urine culture, being treated. Work up: Urinalysis on 12/31/21: Yellow, slightly cloudy, pH 5.0, SG 1.015, protein >300, blood large, leukocyte esterase moderate, urine culture pending. Urine random total protein/creatinine on 12/03/21: 1,720 mg/g creatinine. Renal US on 08/03/15: No evidence of urinary tract obstruction or parenchymal scarring in either kidney. Diminished urine output bilaterally. Moderate-sized postvoid residual in the bladder. Cholelithiasis. 3 x 4 mm nonobstructing right renal stone. In 2016 hepatitis serologies negative, ASAD and ANCA negative, UPEP and immunofixation unremarkable. Heavy NSAID use in the past. Progress: Serum creatinine increased from 4.8 to 5.0 in the past 24 hours. Baseline serum creatinine: 2.7-2.9 (eGFR 20-23) in 2020, 3.9 (eGFR 14) on 09/12/21, 4.0 (eGFR 14) on 12/03/21. Urine output: 1,275 ml reported in the past 24 hours. Metabolic acidosis. Hyperphosphatemia. No fluid overload. I/O: +2.8L since admit. Uremic symptom: Weakness Discussion: No need for urgent hemodialysis, but chronic hemodialysis initiation after discahrge recommended. Risks and benefits has been discussed with the patient. He agreed to proceed. Recommendations/Plan: Outpatient tunneled hemodialysis catheter placement at [facility] after discharge, followed by outpatient chronic hemodialysis initiation at [facility]. Status: Chronic Time Spent With Patient Time: Total time spent is greater than 50% in coordination of care (as documented) at patient's floor/unit and/or counseling patient:
--- NOTE | 2022-01-02 07:53 | Internal Med Progress Note ---
SUBJECTIVE Subjective Patient information: Note initiated : 01/02/22 at 7:49 am Service Date, if different from initiated Date: [] Patient: Rito Fleming 76 y/o M admitted on 12/29/21 for stroke. Chief Complaint: [] Interval history: History of present illness: Mr. Fleming is a 76 year old male with a history of hypertension, diabetes mellitus, HFpEF, moderate aortic stenosis, CKD stage 4, lung mass, CHELY presented to the ED for an acute episode of confusion at home. Symptoms resolved in the ED, CT head and MRI brain did not show any acute changes. The patient was found to have an acute on chronic kidney disease injury and hyperkalemia in the emergency department. Hospital medicine was consulted for admission for acute kidney injury and hyperkalemia. 12/30 Patient found to have gross hematuria overnight. Suspect related to Munoz catheter placement and withdrawal and BPH. Patient does describe BPH symptoms when asked. Munoz catheter removed yesterday evening. We will stop the heparin and place on SCDs. Creatinine 4.7 today. Looking at old labs his creatinine was 4.0 December 03 and prior to that it had ranged between 2.9-3.9. Potassium is within normal limits. Some acidosis with a bicarb of 18. Phosphorus elevated but improved him yesterday. Patient is on prednisone 20 mg daily but he does not know why or how long he has been on it. 12/31 Patient says he is feeling little better but he appears quite weak. The dry cough that is unchanged and he denies shortness of breath. Does complain of dysuria. Asked about a biopsy that was set up at [facility] upon discharge but he says it has not been done yet. White blood cell count elevated today. He had a T-max of 100.2 yesterday. Patient denies any fevers chills chest or abdominal pain. No diarrhea. Hematuria resolved. Found further clarification on the prednisone prescription. Was seen by a automotive service writer up in [place] in December 06 who wrote for 14-day cou rse of prednisone 20mg daily. Thus he must not have been on prednisone just prior current admission. His leukocytosis is likely the result of restarting prednisone. 01/01 Patient says he is feeling better today. However, his white cell count is bit higher. His creatinine has not changed and his phosphorus is a little bit elevated compared to yesterday. Will discuss the case with nephrology. The size of the tumor appears to be the same as in October and November. 01/02 Patient says he is feeling better. However his renal function declined slightly from yesterday's labs. Nephrology to discuss with him starting hemodialysis upon discharge. Urine culture growing gram-negative bacillus and awaiting final cultures. Leukocytosis resolved. Review of Systems: denies headache/fever/chills/nausea/vomiting/chest or abdominal pain/diarrhea. Otherwise see above. Constitutional Vitals: Vital Signs Temp Pulse Resp BP Pulse Ox O2 Del Method 98.5 F 89 20 126/62 94 01/02/22 03:30 01/02/22 03:30 01/02/22 03:30 01/02/22 03:30 01/02/22 03:30 01/02/22 03:30 Period Temp Pulse Resp BP Sys/Nielsen Pulse Ox O2 Del Method O2 Flow Rate Last 24 Hr 98.0 F-99.5 F 73-94 12-20 116-146/56-72 94-97 Room Air-Room Air Intake and Output 01/01/22 01/02/22 01/02/22 21:59 05:59 13:59 Intake Total 240 490 Output Total 451 625 Balance -211 -135 Weight 89.358 kg Intake & Output: Intake & Output 01/01/22 01/02/22 01/02/22 21:59 05:59 13:59 Intake Total 240 490 Output Total 451 625 Balance -211 -135 Weight 89.358 kg Intake: Oral 240 490 Output: Void Amount 450 625 # of times incontinent of urine 1 Other: Meal Dinner Percent of Meal Consumed 100% Urine Appearance Clear Clear Urine Color Dark Yellow Yellow Exam: General: alert and awake, No acute Distress, appears more alert today Eyes/N/T: EOMI, Head/Neck: neck supple, CV: RRR, 2/6SM, Pulm: mild rhonchi, diminished b/l, no wheezing Abd: soft, nontender, +BS x4 Ext: no clubbing/cyanosis/edema Neuro: Alert, no focal deficits, moves all extremities, Skin: warm/dry OBJ DATA Labs CBC & Chem 7: 01/02/22 05:37 01/02/22 05:37 Labs: Abnormal Lab Results 01/02/22 01/02/22 01/01/22 05:37 05:37 05:45 WBC RBC 2.82 L Hgb 7.9 L Hct 24.9 L RDW 15.9 H Immature Gran % (Auto) Neut % (Auto) 88.8 H Lymph % (Auto) 5.2 L Lymph # (Auto) 0.34 L Seg Neutrophils % Lymphocytes % Immature Gran # Absolute Neutrophils RBC Morphology Hypochromasia Poikilocytosis Anisocytosis ESR 57 H Sodium Carbon Dioxide 20 L Anion Gap BUN 103 H* Creatinine 5.0 H* Glucose Uric Acid 9.1 H Phosphorus 5.3 H Lactate Dehydrogenase 105 L C-Reactive Protein Total Protein 5.7 L Albumin 2.4 L Albumin/Globulin Ratio 0.7 L Procalcitonin Urine Appearance Urine Protein Urine Occult Blood Ur Leukocyte Esterase Urine RBC Urine WBC Urine Bacteria 01/01/22 01/01/22 01/01/22 05:36 05:36 05:36 WBC 16.7 H RBC 2.92 L Hgb 8.0 L Hct 25.8 L RDW 16.1 H Immature Gran % (Auto) Neut % (Auto) Lymph % (Auto) Lymph # (Auto) Seg Neutrophils % 88 H Lymphocytes % 5 L Immature Gran # Absolute Neutrophils RBC Morphology Abnormal A Hypochromasia 1+ A Poikilocytosis 1+ A Anisocytosis 1+ A ESR Sodium Carbon Dioxide 19 L Anion Gap 17.0 H BUN 89 H Creatinine 4.8 H Glucose Uric Acid Phosphorus 6.7 H* Lactate Dehydrogenase 100 L C-Reactive Protein 17.00 H Total Protein 5.7 L Albumin 2.6 L Albumin/Globulin Ratio 0.8 L Procalcitonin 2.51 H Urine Appearance Urine Protein Urine Occult Blood Ur Leukocyte Esterase Urine RBC Urine WBC Urine Bacteria 12/31/21 12/31/21 12/31/21 14:10 05:48 05:48 WBC 14.4 H RBC 3.02 L Hgb 8.3 L Hct 26.5 L RDW 15.9 H Immature Gran % (Auto) 0.6 H Neut % (Auto) 90.9 H Lymph % (Auto) 4.5 L Lymph # (Auto) 0.64 L Seg Neutrophils % Lymphocytes % Immature Gran # 0.08 H Absolute Neutrophils 13.07 H RBC Morphology Hypochromasia Poikilocytosis Anisocytosis ESR Sodium 132 L Carbon Dioxide 18 L Anion Gap BUN 83 H Creatinine 4.7 H Glucose Uric Acid Phosphorus 6.4 H* Lactate Dehydrogenase 113 L C-Reactive Protein Total Protein Albumin 2.8 L Albumin/Globulin Ratio 0.9 L Procalcitonin Urine Appearance Slightly cloudy A Urine Protein >=300 mg/dl A Urine Occult Blood Large A Ur Leukocyte Esterase Moderate A Urine RBC 79 H Urine WBC > 182 H Urine Bacteria Few A 12/31/21 12/31/21 12/31/21 05:40 05:40 05:40 WBC RBC Hgb Hct RDW Immature Gran % (Auto) Neut % (Auto) Lymph % (Auto) Lymph # (Auto) Seg Neutrophils % 87 H Lymphocytes % 6 L Immature Gran # Absolute Neutrophils RBC Morphology Abnormal A Hypochromasia Few A Poikilocytosis Anisocytosis 1+ A ESR Sodium Carbon Dioxide Anion Gap BUN Creatinine Glucose Uric Acid Phosphorus Lactate Dehydrogenase C-Reactive Protein 10.10 H Total Protein Albumin Albumin/Globulin Ratio Procalcitonin 0.77 H Urine Appearance Urine Protein Urine Occult Blood Ur Leukocyte Esterase Urine RBC Urine WBC Urine Bacteria 12/30/21 05:55 WBC RBC Hgb Hct RDW Immature Gran % (Auto) Neut % (Auto) Lymph % (Auto) Lymph # (Auto) Seg Neutrophils % Lymphocytes % Immature Gran # Absolute Neutrophils RBC Morphology Hypochromasia Poikilocytosis Anisocytosis ESR Sodium Carbon Dioxide 18 L Anion Gap BUN 87 H Creatinine 4.7 H Glucose 48 L Uric Acid Phosphorus 6.9 H* Lactate Dehydrogenase 117 L C-Reactive Protein Total Protein 5.7 L Albumin 2.7 L Albumin/Globulin Ratio 0.9 L Procalcitonin Urine Appearance Urine Protein Urine Occult Blood Ur Leukocyte Esterase Urine RBC Urine WBC Urine Bacteria Meds: Medications Acetaminophen (Acetaminophen 325 Mg Tablet) 650 mg PO Q6HP PRN; Protocol PRN Reason: Per Pain Protocol/Fever > 101 Last Admin: 01/01/22 15:44 Dose: 650 mg Atorvastatin Calcium (Atorvastatin 10 Mg Tablet) 2.5 mg PO DAILY [facility] Last Admin: 01/01/22 08:24 Dose: 2.5 mg Calcitriol (Calcitriol 0.25 Mcg Capsule) 0.25 mcg PO MoWeFr@0900 [facility] Last Admin: 01/01/22 08:31 Dose: 0.25 mcg Carvedilol (Carvedilol 3.125 Mg Tablet) 3.125 mg PO BIDCC [facility] Last Admin: 01/01/22 17:21 Dose: 3.125 mg Ceftriaxone Sodium (Ceftriaxone 1 Gm Vial) 1 gm IV Q24H [facility]; Protocol Last Admin: 01/01/22 09:54 Dose: 1 gm Dextrose (Dextrose 50% 50 Ml Vial) 0 ml IV UD PRN PRN Reason: Per Sliding Scale Diagnostic Test (Pha) (Accu-Chek 1 Each Strip) 1 each FS [facility] Last Admin: 01/02/22 07:23 Dose: 1 each Docusate Sodium (Docusate Sodium 100 Mg Capsule) 100 mg PO BID [facility] Last Admin: 01/01/22 20:49 Dose: Not Given Famotidine (Famotidine 20 Mg Tablet) 20 mg PO [facility] Last Admin: 01/01/22 20:54 Dose: 20 mg Glucose (Dextrose 31 Gm Oral.Susp) 15 gm PO PRN PRN PRN Reason: Hypoglycemia Heparin Sodium (Porcine) (Heparin 5,000 Unit/Ml Vial) 5,000 unit SQ Q12 [facility] Last Admin: 01/01/22 20:54 Dose: 5,000 unit Hydralazine HCl (Hydralazine 25 Mg Tablet) 100 mg PO TID [facility] Last Admin: 01/01/22 20:54 Dose: 100 mg Insulin Human Lispro (Insulin Lispro 1 Unit/0.01 Ml Unit) 0 unit SQ [facility]; Protocol Last Admin: 01/02/22 07:24 Dose: Not Given Ondansetron HCl (Ondansetron 4 Mg/2 Ml Vial) 4 mg IV Q6HP PRN PRN Reason: Nausea And Vomiting Senna (Sennosides 1 Tablet) 2 tab PO [facility] Last Admin: 01/01/22 20:48 Dose: Not Given Sevelamer Carbonate (Sevelamer 800 Mg Tablet) 1,200 mg PO TIDCC [facility] Last Admin: 01/01/22 17:21 Dose: 1,200 mg Sodium Chloride (0.9 % Sodium Chloride 10 Ml Syringe) 10 ml IV Q8 [facility] Last Admin: 01/02/22 05:46 Dose: 10 ml Tamsulosin HCl (Tamsulosin 0.4 Mg Capsule) 0.4 mg PO QHS [facility] Last Admin: 01/01/22 20:54 Dose: 0.4 mg A/P Narrative A/P Narrative: A: #ANNA on CKD IV: -5.2>>4.7>>5.0 -good uop #Hyperkalemia/hyperphosphatemia: Improving #Anion gap metabolic acidosis: #UTI(GNB): #Leukocytosis: 2/2 likely UA + steroids + 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 resolved #Anemia, chronic: #Chronic diastolic heart failure: stable #Moderate aortic stenosis: #Type 2 DM: #HTN: #Lung mass: recently found at [facility] in October, an outpatient biopsy was scheduled but did not happen #CHELY: Plan -s/p IVF -Monitor renal function, urine output, volume status. -nephrology following -Started sevelamer tid -SSI -Hold home lisinopril for hyperkalemia and ANNA, Lasix for ANNA, diltiazem for bradycardia, and glipizide. -Continue home Coreg/hydralazine -PT consult -Outpatient initiation of dialysis upon discharge -f/u with pcp/pulmonology for lung mass biopsy if that is within goals of care -ppx: heparin SQ / home h2 Code status: Property Administrator Spent With Patient Time: Total time spent is greater than 50% in coordination of care (as documented) at patient's floor/unit and/or counseling patient: Total time spent with greater than 50% in coordination of care (as documented) at patient's floor/unit and/or counseling patient:: 35 - 50 minutes QUALITY VTE Deep Vein Thrombosis/Pulmonary Embolism Present on Admission: No
[2022-01-02] MEDS: cefTRIAXone 1 GM VIAL IV SCH (09:11)
[2022-01-02] MEDS: hydrALAZINE 25 MG TABLET PO SCH (09:11)
[2022-01-02] MEDS: SEVELAMER 800 MG TABLET PO SCH ×2 (09:11→11:45)
[2022-01-02] MEDS: ATORVASTATIN 10 MG TABLET PO SCH (09:12)
[2022-01-02] MEDS: DOCUSATE SODIUM 100 MG CAPSULE PO SCH (09:12)
[2022-01-02] MEDS: CARVEDILOL 3.125 MG TABLET PO SCH (09:13)
[2022-01-02] MEDS: HEPARIN 5,000 UNIT/ML VIAL SQ SCH (09:13)
--- NOTE | 2022-01-02 10:04 | Discharge Summary ---
Discharge Provider Provider IMPORTANT FOLLOW-UP INFORMATION FOR PCP: Patient information: Note initiated : 01/02/22 at 10:02 am Service Date, if different from initiated Date: [] Patient: Rito Fleming 76 y/o M admitted on 12/29/21 for stroke. Chief Complaint: [] Date of admission: 12/29/21 01:11 Discharge date: 01/02/22 Primary care physician: RUT Campos Consults: 12/28/21 Consult to Physician [CONS] Stat Comment: Consulting Provider: Gigi Brower Reason For Exam: Physician to Consult 01/01/22 08:35 Consult to Physician [CONS] Routine Comment: Consulting Provider: Jaun Post Reason For Exam: Physician to Consult COURSE Hospital Course Hospital course: Interval history: History of present illness: Mr. Fleming is a 76 year old male with a history of hypertension, diabetes mellitus, HFpEF, moderate aortic stenosis, CKD stage 4, lung mass, CHELY presented to the ED for an acute episode of confusion at home. Symptoms resolved in the ED, CT head and MRI brain did not show any acute changes. The patient was found to have an acute on chronic kidney disease injury and hyperkalemia in the emergency department. Hospital medicine was consulted for admission for acute kidney injury and hyperkalemia. 12/30 Patient found to have gross hematuria overnight. Suspect related to Munoz catheter placement and withdrawal and BPH. Patient does describe BPH symptoms when asked. Munoz catheter removed yesterday evening. We will stop the heparin and place on SCDs. Creatinine 4.7 today. Looking at old labs his creatinine was 4.0 December 03 and prior to that it had ranged between 2.9-3.9. Potassium is within normal limits. Some acidosis with a bicarb of 18. Phosphorus elevated but improved him yesterday. Patient is on prednisone 20 mg daily but he does not know why or how long he has been on it. 12/31 Patient says he is feeling little better but he appears quite weak. The dry cough that is unchanged and he denies shortness of breath. Does complain of dysuria. Asked about a biopsy that was set up at [facility] upon discharge but he says it has not been done yet. White blood cell count elevated today. He had a T-max of 100.2 yesterday. Patient denies any fevers chills chest or abdominal pain. No diarrhea. Hematuria resolved. Found further clarification on the prednisone prescription. Was seen by a service bar cashier up in [place] in December 06 who wrote for 14-day course of prednisone 20mg daily. Thus he must not have been on prednisone just prior current admission. His leukocytosis is likely the result of restarting prednisone. 01/01 Patient says he is feeling better today. However, his white cell count is bit higher. His creatinine has not changed and his phosphorus is a little bit elevated compared to yesterday. Will discuss the case with nephrology. The size of the tumor appears to be the same as in October and November. 01/02 Patient says he is feeling better. However his renal function declined slightly from yesterday's labs. Nephrology to discuss with him starting hemodialysis upon discharge. Urine culture growing gram-negative bacillus and awaiting final cultures. Leukocytosis resolved. ADDENDUM: Urine culture with gram-negative bacillus that cultured out into E. coli that is pansensitive. Will discharge on Cipro. patient high risk for readmission given significant comorbidities A: #ANNA on CKD IV: #Hyperkalemia/hyperphosphatemia: Improving #Anion gap metabolic acidosis: #complicated UTI(e coli): #Sinus bradycardia: resolved off diltiazem and still on BB #encephalopathy: Resolved #Gross hematuria: Likely related to Umnoz trauma and BPH. resolved #Anemia, chronic: #Chronic diastolic heart failure: stable #Moderate aortic stenosis: #Type 2 DM: #HTN: #Lung mass: recently found at [facility] in October, an outpatient biopsy was scheduled but did not happen #CHELY: Plan -nephrology following -Hold home lisinopril for ANNA, diltiazem for bradycardia -cipro for uti -Outpatient initiation of dialysis upon discharge -f/u with pcp/pulmonology for lung mass biopsy Discharge diagnosis: ANNA on CKD hyperkalemia hyperphosphatemia metabolic acidosis UTI Secondary discharge diagnosis: Sinus bradycardia Encephalopathy gross hematuria resolved chronic anemia chronic diastolic heart failure moderate aortic stenosis diabetes hypertension lung mass obstructive sleep apnea Time Spent with Patient Time attestation: Total time spent providing and/or coordinating discharge services: Time spent: Greater than 30 minutes EXAM Constitutional Vitals: Temp Pulse Resp BP Pulse Ox O2 Del Method 98.8 F 80 20 149/71 95 01/02/22 08:00 01/02/22 08:00 01/02/22 08:00 01/02/22 08:00 01/02/22 08:00 01/02/22 08:00 Discharge Data Data Completed and Pending Labs on day of discharge: Labs from last 24 hours 01/02/22 01/02/22 05:37 05:37 WBC 6.6 RBC 2.82 L Hgb 7.9 L Hct 24.9 L MCV 88.3 MCH 28.0 MCHC 31.7 RDW 15.9 H Plt Count 173 MPV 9.8 Immature Gran % (Auto) 0.3 Neut % (Auto) 88.8 H Lymph % (Auto) 5.2 L [place] % (Auto) 5.5 Eos % (Auto) 0 Baso % (Auto) 0.2 Lymph # (Auto) 0.34 L [place] # (Auto) 0.36 Eos # (Auto) 0 Baso # (Auto) 0.01 Immature Gran # 0.02 Absolute Neutrophils 5.82 Sodium 135 Potassium 4.2 Chloride 102 Carbon Dioxide 20 L Anion Gap 13.0 BUN 103 H* Creatinine 5.0 H* GFR Calculation 10 Glucose 95 Uric Acid 9.1 H Calcium 9.0 Phosphorus 5.3 H Magnesium 2.1 Total Bilirubin 0.3 Direct Bilirubin < 0.2 GGT 25 AST 14 ALT 10 Alkaline Phosphatase 78 Lactate Dehydrogenase 105 L Total Protein 5.7 L Albumin 2.4 L Globulin 3.3 Albumin/Globulin Ratio 0.7 L Triglycerides 71 Discharge Plan Patient/Caregiver Discharge Instructions Activity: increase activity as tolerated Diet: Renal/Consistent Carbs Activity Restrictions/Additional Instructions: Follow-up with your service bar cashier for the lung mass and biopsy. Follow-up with nephrology for initiation of hemodialysis. Prescriptions: New ciprofloxacin HCl [Cipro] 500 mg tablet 500 mg PO Q24H Qty: 5 0RF Rx Instructions: start on 06/05/2021. Continued furosemide 20 mg tablet 20 mg PO BID Qty: 180 2RF tamsulosin 0.4 mg capsule 0.4 mg PO QHS glipizide 10 mg tablet 10 mg PO QDAY famotidine 40 mg tablet 20 mg PO BID fluticasone propionate 50 mcg/actuation spray,suspension 1 spray intranasal QDAY PRN (Reason: Hayfever) Rx Instructions: administer into each nostril pravastatin 40 mg tablet 10 mg PO QDAY Aranesp (in polysorbate) 60 mcg/mL solution 60 mcg subcut Q2W calcitriol 0.25 mcg capsule 0.25 mcg PO 3XW Rx Instructions: Thursday, Thursday, Thursday. carvedilol 3.125 mg tablet 3.125 mg PO BID Rx Instructions: must administer with a meal/food hydralazine 100 mg tablet 100 mg PO TID Qty: 300 3RF Rx Instructions: NEW DOSE Discontinued diltiazem HCl 120 mg capsule,extended release 24hr 120 mg PO QAM Qty: 90 3RF Rx Instructions: Do not take if HR less than 60/min Replaces Amlodipine lisinopril 20 mg tablet 20 mg PO QHS Qty: 30 11RF Rx Instructions: New dose. prednisone 20 mg tablet 20 mg PO QDAY Rx Instructions: has 3 left. Follow Up Plan Follow up with: Elizabeth Heredia ARNP [Primary Care Provider] - Vinnie Logan MD [Physician] - Patient Disposition: Home Health Service Prognosis: Undetermined Discharge Orders: Discharge Order (Routine); Ordered 01/02/22 Ordered By: Noe Lloyd [facility] VTE Deep Vein Thrombosis/Pulmonary Embolism Present on Admission: No
[2022-01-02] MEDS: ACETAMINOPHEN 325 MG TABLET PO PRN (10:27)
== END 2022-01-02 14:45 | disposition home health service (06) | DRG 682 ==
LOC: ED 13:46 → MEDSUR 12-29 01:11
PROVIDERS: ADMIT Internal Medicine; ATTEND Internal Medicine

== ENCOUNTER 2022-01-15 14:08 | Observation (INO) ==
[2022-01-15 14:27] LABS: POC Blood Urea Nitrogen > 140 (6-20); POC Calcium, Ionized 1.15 (1.16-1.32); POC Chloride 105 (96-108); POC Creatinine 6.1 (0.6-1.2); POC Glucose, Random 123 (70-105); POC Potassium 5.2 (3.3-5.1); POC Sodium 135 (133-145)
--- NOTE | 2022-01-15 14:59 | Emergency Department Note ---
HPI General Chief complaint: Blood Sugar Problem Stated complaint: Blood sugar problem Time Seen by Provider: 01/15/22 14:17 Source: patient Mode of arrival: ambulatory Limitations: no limitations History of Present Illness HPI Narrative: 76-year-old male patient with ESRD, T2DM, large left lung mass, hypertension, hyperlipidemia with recent placement of a dialysis tunneled catheter on 01/13/22 with plans to start dialysis tomorrow who presents for acute hypoglycemic event. Patient states he woke up this morning and checked his blood sugars and they were 80. He took his 10 mg of glipizide at 9 AM and then checked his blood sugars 2 hours later at 11 and he was 61. He was feeling unwell at that time. He presented to his PCPs office for a blood draw at which point they called 911, and when EMS arrived his blood sugars were 35. He was conscious. He was given 250 mL of D10 and he arrives in our ER with a [id number] blood sugar of 123. He denies symptoms currently. Patient states that he is not on insulin. Last meal was at 11 AM. Patient lives independently at home with his fiance. He has diffuse bruising to the bilateral upper extremities and states that he frequently falls. He does still make urine. Per chart review it does not appear that his lung mass has been worked up. At one point he was scheduled for a lung biopsy, but it is unclear why this did not happen. Related Data Home Medications Medication Instructions Recorded Confirmed tamsulosin 0.4 mg capsule 0.4 mg PO QHS Prostate problems 01/04/20 01/13/22 glipizide 10 mg tablet 10 mg PO QDAY 05/16/20 01/13/22 pravastatin 40 mg tablet 10 mg PO QDAY 06/11/21 01/13/22 carvedilol 3.125 mg tablet 3.125 mg PO BID 11/13/21 01/15/22 darbepoetin isiah in polysorbat 60 60 mcg subcut Q2W 11/13/21 01/13/22 mcg/mL in polysorbate injection (Aranesp) fluticasone propionate 50 1 spray intranasal QDAY PRN 11/13/21 01/15/22 mcg/actuation nasal Hayfever spray,suspension famotidine 40 mg tablet 20 mg PO BID 12/13/21 01/15/22 albuterol sulfate 90 mcg/actuation 2 puff inhalation Q4H PRN 01/15/22 01/15/22 aerosol inhaler Shortness Of Breath Or Wheezing calcitriol 0.25 mcg capsule 0.25 mcg PO HS 01/15/22 01/15/22 (Rocaltrol) diltiazem HCl 120 mg 1 cap PO QDAY 01/15/22 01/15/22 capsule,extended release 24 hr Previous Rx's Medication Instructions Recorded furosemide 20 mg tablet 20 mg PO BID #180 tabs 09/12/21 hydralazine 100 mg tablet 100 mg PO TID #300 tabs 11/13/21 Allergies Allergy/AdvReac Type Severity Reaction Status Date / Time doxazosin AdvReac Mild Vomiting Verified 01/13/22 09:25 Review of Systems ROS ROS Narrative: Narrative: All systems ED: reviewed and negative except as stated. PFS Narrative Patient History Narrative: Narrative: Medical/Surgical/Family History All Active Problems (Updated 01/15/22 @ 19:58 by Moraima Escamilla PA-C) Nocturia (Chronic) Hypertension (Chronic) Chronic kidney disease, stage 4 (severe) (Chronic) Diabetes mellitus (Chronic) Diabetic retinopathy (Chronic) Macular puckering (Chronic) Cellulitis (Chronic) Chronic sinusitis (Chronic) SOB (shortness of breath) (Chronic) Wheezing (Chronic) Acid reflux (Chronic) Urinary urgency (Chronic) Chronic stasis dermatitis (Chronic) Morbidly obese (Chronic) No significant past surgical history (Chronic) Hyperkalemia (Acute) Uncontrolled type 2 diabetes mellitus with stage 4 chronic kidney disease, with long-term current use of insulin (Chronic) 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) Hyperparathyroidism due to renal insufficiency (Chronic) Chronic kidney disease (CKD), stage IV (severe) (Chronic) Chronic diastolic CHF (congestive heart failure), NYHA class 2 (Chronic) Hypotension (Acute) CHF (congestive heart failure) (Acute) BPH (benign prostatic hyperplasia) (Acute) Essential hypertension (Chronic) Diabetes mellitus with chronic kidney disease, without long-term current use of insulin (Chronic) Acute neck pain (Acute) Acute neck pain (Acute) Viral syndrome (Acute) Acute anemia (Acute) Anemia due to stage 4 chronic kidney disease treated with darbepoetin (Acute) Iron deficiency (Acute) Mass of left lung (Chronic) TIA (transient ischemic attack) (Acute) Transient confusion (Acute) ANNA (acute kidney injury) (Acute) Acute renal failure superimposed on stage 5 chronic kidney disease, not on chronic dialysis (Acute) End-stage renal disease needing dialysis (Chronic) Anemia due to stage 5 chronic kidney disease treated with darbepoetin (Acute) Anemia in ESRD (end-stage renal disease) (Chronic) Hypoglycemia (Acute) Hypoglycemia (Acute) Medical History Acid reflux Cellulitis Chronic diastolic CHF (congestive heart failure), NYHA class 2 Suspect HTN > valvular heart disease. 05/2021: Add diltiazem in place of amlodipine Chronic kidney disease (CKD), stage IV (severe) HTN, NSAIDs with nephrotic range proteinuria...suspect prior NSAIDS cause and doubt DM as HgA1c well controlled over the years. Since spring, there has been worsening of GFR to 14 cc/min but improved proteinuria Chronic kidney disease, stage 4 (severe) Most likely associated with diabetes mellitus type 2 with proteinuria present Chronic sinusitis Chronic stasis dermatitis Diabetes mellitus Diabetic nephropathy associated with type 2 diabetes mellitus Stable GFR and marked improvement in urine protein losses argues against DM nephropathy or marked improvement /therapeutic sucess with ACEi Diabetic retinopathy Hypertension Goal blood pressure is 130/80 He is not achieve that goal yet but is improved... Increase hydralazine to 100 mg 3 times a day on 11/13/2021 and continue lisinopril 20 mg a day and the diltiazem and carvedilol Macular puckering Morbidly obese Nocturia SOB (shortness of breath) Uncontrolled type 2 diabetes mellitus with stage 4 chronic kidney disease, with long-term current use of insulin Currently on 70/30 insulin as well as low-dose glipizide Urinary urgency Viral syndrome Wheezing Surgical History No significant past surgical history Social History Smoking Status: Former smoker Alcohol Intake Frequency: does not drink Substance Use: does not use Exam Narrative Narrative: General: AOx3, NAD, nontoxic appearing. Pleasant and conversant. HEENT: PERRL, EOMI, normocephalic. Moist mucous membranes. Normal facies and normal dentition. Chest: Symmetric, no pain to palpation. There is a tunneled catheter in the right chest. The dressing with diluted bloody strikethrough. Respiratory: Lungs clear to auscultation bilaterally. No respiratory distress. Unlabored breathing. Heart: Regular rate and rhythm, no murmurs/clicks/rubs. Abdomen: Non-tender, Non distended, normal bowel tones. No organomegaly. Extremities: Warm and well perfused. 1+ pitting edema. DP 2+ bilaterally. No venous stasis. Neuro: No focal deficits. Cranial nerves II-XII grossly normal. Skin: Warm dry, no rashes or lesions, no cyanosis. Psych: Normal mood and affect Heme/Lymph: Significant bruising to the bilateral upper extremities right greater than left. Patient states that this is from previous falls. General Limitations: no limitations Course Course Course Narrative: 76-year-old male with ESRD presents for hypoglycemic event Reevaluation(s) Reevaluation #1: Repeat blood sugars have been in the 120s during his to our evaluation here. Concern would be for repeated hypoglycemia event with current current glipizide use and ESRD with a GFR of 11. Patient does have dialysis tomorrow. Patient is quite frail and is at risk for hypoglycemic coma. I reached out to the hospitalist for observation admission Vital Signs Vital signs: Vital Signs Temperature 97.0 F 01/15/22 14:10 Pulse Rate 73 01/15/22 14:10 Respiratory Rate 19 01/15/22 14:10 Blood Pressure 152/59 01/15/22 14:10 Pulse Oximetry (%) 96 01/15/22 14:10 Oxygen Delivery Method 01/15/22 14:10 Temperature 98.2 F 01/15/22 18:10 Pulse Rate 75 01/15/22 18:10 Respiratory Rate 20 01/15/22 18:10 Blood Pressure 169/65 01/15/22 18:10 Pulse Oximetry (%) 98 01/15/22 18:10 Oxygen Delivery Method 01/15/22 18:10 [facility] MDM Narrative Medical decision making narrative: Hypoglycemia ESRD on dialysis Left lung mass Anemia of chronic disease Patient with hypoglycemic event. I discussed the patient's glipizide with the pharmacist. This is 80% renally excreted and has a half-life of about 10 hours given his renal function. Unfortunately it is not dialyzable. Concern would be for recurrent hypoglycemic event and coma. Patient would need a fairly prolonged observation here in our ER to assure that his blood sugars are not dropping. For this reason I have reached out to the hospitalist for observation admission and the patient would undergo dialysis tomorrow. I discussed the case with Dr. Logan who is agreeable to admission and nephrology management. Awaiting hospitalist for admission. Dr. Brower has accepted the patient for observation admission. Lab Data Labs: Lab Results 01/15/22 01/15/22 Range/Units 14:22 16:05 POC Hct 22.0 L (41-55) POC Sodium 135 (133-145) POC Potassium 5.2 H (3.3-5.1) POC Chloride 105 (96-108) POC Total CO2 22.0 (22-30) POC BUN > 140 H* (6-20) POC Creatinine 6.1 H* (0.6-1.2) POC Glucose 123 H (70-105) POC WB Ioniz Calcium 1.15 L (1.16-1.32) Urine Color Straw Urine Appearance Clear (Clear) Urine pH 5.0 (5.0-9.0) Ur Specific [place] 1.009 (1.000-1.035) Urine Protein 100 A (Negative) mg/dL Urine Glucose (UA) Negative (Negative) mg/dL Urine Ketones Negative (Negative) mg/dL Urine Occult Blood Negative (Negative) mg/dL Urine Nitrate Negative (Negative) Urine Bilirubin Negative (Negative) mg/dL Urine Urobilinogen Negative mg/dL Ur Leukocyte Esterase 75 A (Negative) /uL Urine RBC 1 (0-3) /hpf Urine WBC 2 (0-4) /hpf Ur Squamous Epith Cells 1 (0-4) /hpf Urine Bacteria None (0) /hpf Urine Mucus Few A (None) /hpf Ur Culture Indicated? No Discharge Plan Patient/Caregiver Discharge Instructions Pt seen by APPIAN BPM DEVELOPER/PA only: Yes Clinical Impression: Hypoglycemia Patient Disposition: Xfer As Outpt/Obs ([facility]) Discharge Date/Time: 01/15/22 18:00 Discharge Location: [facility]
--- NOTE | 2022-01-15 16:50 | Internal Med History&Physical ---
HPI History of Present Illness Patient information: Note initiated : 01/15/22 at 4:43 pm Service Date, if different from initiated Date: [] Patient: Rito Fleming 76 y/o M admitted on for Blood sugar problem. Chief Complaint: [] History of present illness: Mr. Fleming is a 76-year-old male with a history of hypertension, hyperlipidemia, type 2 diabetes mellitus, prior CKD stage IV with recent ANNA now progressed to ESRD, recent tunneled hemodialysis catheter with plans to start hemodialysis 01/16/2022, lung mass of uncertain etiology Presented to the ED for an acute hypoglycemic event in clinic. The patient takes glipizide 10 mg daily and has done so for some time. The patient says that he has had no issues with glipizide before however his renal function has now progressed to the point where glipizide may little longer be indicated. Patient was monitored in the ED with no further hypoglycemic events noted. Hospital medicine was consulted for admission for close monitoring. Review of systems Constitutional: no fever, fatigue, or weight loss Eyes: no vision changes or pain Cardiovascular: no chest pain, no palpitations Respiratory: no cough or dyspnea Gastrointestinal: no abdominal pain, no nausea, vomiting, or diarrhea Genitourinary: no dysuria or difficulty voiding Musculoskeletal: no arthralgia or myalgia Integumentary: no skin lesion or wound Neurological: no focal weakness or numbness Psychiatric: no anxiety or depression Physical exam Head: Atraumatic, normal inspection. Eyes: normal appearance, no scleral icterus. Neck: full ROM Respiratory: no respiratory distress. Cardiovascular: normal rate and rhythm, S1, S2. GI/Abdominal: soft, nontender, no guarding. Extremities: full range of motion, nontender. Neurological: CN II-XII intact, intact motor, intact sensation. Psychiatric: normal mood. Skin: warm, normal color PFSH PFSH All Active Problems (Updated 01/15/22 @ 19:58 by Moraima Escamilla PA-C) Nocturia (Chronic) Hypertension (Chronic) Chronic kidney disease, stage 4 (severe) (Chronic) Diabetes mellitus (Chronic) Diabetic retinopathy (Chronic) Macular puckering (Chronic) Cellulitis (Chronic) Chronic sinusitis (Chronic) SOB (shortness of breath) (Chronic) Wheezing (Chronic) Acid reflux (Chronic) Urinary urgency (Chronic) Chronic stasis dermatitis (Chronic) Morbidly obese (Chronic) No significant past surgical history (Chronic) Hyperkalemia (Acute) Uncontrolled type 2 diabetes mellitus with stage 4 chronic kidney disease, with long-term current use of insulin (Chronic) 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) Hyperparathyroidism due to renal insufficiency (Chronic) Chronic kidney disease (CKD), stage IV (severe) (Chronic) Chronic diastolic CHF (congestive heart failure), NYHA class 2 (Chronic) Hypotension (Acute) CHF (congestive heart failure) (Acute) BPH (benign prostatic hyperplasia) (Acute) Essential hypertension (Chronic) Diabetes mellitus with chronic kidney disease, without long-term current use of insulin (Chronic) Acute neck pain (Acute) Acute neck pain (Acute) Viral syndrome (Acute) Acute anemia (Acute) Anemia due to stage 4 chronic kidney disease treated with darbepoetin (Acute) Iron deficiency (Acute) Mass of left lung (Chronic) TIA (transient ischemic attack) (Acute) Transient confusion (Acute) ANNA (acute kidney injury) (Acute) Acute renal failure superimposed on stage 5 chronic kidney disease, not on chronic dialysis (Acute) End-stage renal disease needing dialysis (Chronic) Anemia due to stage 5 chronic kidney disease treated with darbepoetin (Acute) Anemia in ESRD (end-stage renal disease) (Chronic) Hypoglycemia (Acute) Hypoglycemia (Acute) Medical History Acid reflux Cellulitis Chronic diastolic CHF (congestive heart failure), NYHA class 2 Suspect HTN > valvular heart disease. 05/2021: Add diltiazem in place of amlodipine Chronic kidney disease (CKD), stage IV (severe) HTN, NSAIDs with nephrotic range proteinuria...suspect prior NSAIDS cause and doubt DM as HgA1c well controlled over the years. Since spring, there has been worsening of GFR to 14 cc/min but improved proteinuria Chronic kidney disease, stage 4 (severe) Most likely associated with diabetes mellitus type 2 with proteinuria present Chronic sinusitis Chronic stasis dermatitis Diabetes mellitus Diabetic nephropathy associated with type 2 diabetes mellitus Stable GFR and marked improvement in urine protein losses argues against DM nephropathy or marked improvement /therapeutic sucess with ACEi Diabetic retinopathy Hypertension Goal blood pressure is 130/80 He is not achieve that goal yet but is improved... Increase hydralazine to 100 mg 3 times a day on 11/13/2021 and continue lisinopril 20 mg a day and the diltiazem and carvedilol Macular puckering Morbidly obese Nocturia SOB (shortness of breath) Uncontrolled type 2 diabetes mellitus with stage 4 chronic kidney disease, with long-term current use of insulin Currently on 70/30 insulin as well as low-dose glipizide Urinary urgency Viral syndrome Wheezing Surgical History No significant past surgical history Social History (Updated 09/15/19 @ 19:21 by Vinnie Logan MD) smoking status: Former smoker alcohol intake frequency: does not drink substance use type: does not use MEDS/ALLERGIES Home Medications and Allergies Home Medications Medication Instructions Recorded Confirmed Type tamsulosin 0.4 mg capsule 0.4 mg PO QHS Prostate problems 01/04/20 01/13/22 History glipizide 10 mg tablet 10 mg PO QDAY 05/16/20 01/13/22 History pravastatin 40 mg tablet 10 mg PO QDAY 06/11/21 01/13/22 History furosemide 20 mg tablet 20 mg PO BID #180 tabs 09/12/21 01/15/22 Rx carvedilol 3.125 mg tablet 3.125 mg PO BID 11/13/21 01/15/22 History darbepoetin isiah in polysorbat 60 60 mcg subcut Q2W 11/13/21 01/13/22 History mcg/mL in polysorbate injection (Aranesp) fluticasone propionate 50 1 spray intranasal QDAY PRN 11/13/21 01/15/22 History mcg/actuation nasal Hayfever spray,suspension hydralazine 100 mg tablet 100 mg PO TID #300 tabs 11/13/21 01/15/22 Rx famotidine 40 mg tablet 20 mg PO BID 12/13/21 01/15/22 History albuterol sulfate 90 mcg/actuation 2 puff inhalation Q4H PRN 01/15/22 01/15/22 History aerosol inhaler Shortness Of Breath Or Wheezing calcitriol 0.25 mcg capsule 0.25 mcg PO HS 01/15/22 01/15/22 History (Rocaltrol) diltiazem HCl 120 mg 1 cap PO QDAY 01/15/22 01/15/22 History capsule,extended release 24 hr Allergies Allergy/AdvReac Type Severity Reaction Status Date / Time doxazosin AdvReac Mild Vomiting Verified 01/13/22 09:25 EXAM Constitutional Vitals: Temp Pulse Resp BP Pulse Ox O2 Del Method 97.0 F 71 12 136/56 98 01/15/22 14:10 01/15/22 16:25 01/15/22 16:25 01/15/22 16:16 01/15/22 16:25 01/15/22 14:10 DATA Data Completed and Pending Labs: Labs from last 24 hours 01/15/22 01/15/22 16:05 14:22 POC Hct 22.0 L POC Sodium 135 POC Potassium 5.2 H POC Chloride 105 POC Total CO2 22.0 POC BUN > 140 H* POC Creatinine 6.1 H* POC Glucose 123 H POC WB Ioniz Calcium 1.15 L Urine Color Pending Urine Appearance Pending Urine pH Pending Ur Specific [place] Pending Urine Protein Pending Urine Glucose (UA) Pending Urine Ketones Pending Urine Occult Blood Pending Urine Nitrate Pending Urine Bilirubin Pending Urine Urobilinogen Pending Ur Leukocyte Esterase Pending A/P Narrative A/P Narrative: Assessment: 76-year-old male with a history of hypertension, hyperlipidemia, type 2 diabetes mellitus, prior CKD stage IV with recent ANNA now progressed to ESRD, recent tunneled hemodialysis catheter with plans to start hemodialysis 01/16/2022, lung mass of uncertain etiology admitted to observation for hypoglycemia likely secondary to glipizide. #Hypoglycemia secondary to glipizide in the setting of ESRD #Mild hyperkalemia #ESRD starting hemodialysis 01/16/2022 #Type 2 diabetes mellitus #Hypertension #Hyperlipidemia #Lung mass #CHELY Plan -Admit to observation status, monitor glucose closely. -Discontinue glipizide, do not resume at discharge. -Correction Humalog SSIlow. -Hypoglycemia protocol. -Home medication reconciliation, continue other important meds. -Hemodialysis via tunneled HD catheter planned for tomorrow. -Follow potassium. -Hemodialysis consistent carbohydrate diet. -CODE STATUS: Full -Disposition: Likely discharge to home tomorrow. Time Spent With Patient Time: Total time spent is greater than 50% in coordination of care (as documented) at patient's floor/unit and/or counseling patient:
--- NOTE | 2022-01-15 17:01 | Nephrology Progress Note ---
SUBJECTIVE Subjective Patient information: Note initiated : 01/15/22 at 4:54 pm Service Date, if different from initiated Date: [] Patient: Rito Fleming 76 y/o M admitted on for Blood sugar problem. Chief Complaint: [Low blood sugar] Principal diagnosis: Hypoglycemia Interval history: This patient has ESRD but is yet to start dialysis as his first day was scheduled for tomorrow as an outpatient. Apparently EMS was called and found the patient lethargic with a blood sugar of 35 and he responded to an amp of D50 with a blood sugar into the 110 range here in the ER. There are 3 possible etiologies for profound hypoglycemia in this patient: Prolonged half-time of endogenous insulin due to GFR of 10 cc/min Prolonged bioavailability of low-dose glipizide due to its renal metabolism A paraneoplastic process given this patient has an undiagnosed lung cancer I was forced into position of initiating dialysis when the patient was admitted about a week ago and the on-call navigation teacher recommended dialysis. My plan was to hold off to see what exactly his pulmonary process was as it is not appropriate to dialyze people with advanced cancer. 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 This will be the third hospital admission for this patient in 3 different institutions with an impressive lung mass first noted months ago and yet no biopsy or even pulmonary consult has been obtained. Vital Signs Temp Pulse Resp BP Pulse Ox O2 Del Method 01/15/22 16:25 71 12 98 01/15/22 16:16 71 13 136/56 98 01/15/22 16:14 73 13 139/60 98 01/15/22 15:46 76 16 138/53 98 01/15/22 15:31 70 142/51 97 01/15/22 15:16 69 15 136/61 97 01/15/22 15:01 71 13 138/51 98 01/15/22 14:46 72 19 143/59 98 01/15/22 14:31 71 16 150/52 97 01/15/22 14:21 74 16 97 01/15/22 14:20 74 16 152/59 98 01/15/22 14:10 36.1 C 73 19 152/59 96 Room Air Intake and Output 01/15/22 01/15/22 01/15/22 05:59 13:59 21:59 Other: Weight 94.801 kg Patient Weight 01/16/22 05:[address] Dec, 2021 Constitutional Vitals: Vital Signs Temp Pulse Resp BP Pulse Ox O2 Del Method 36.1 C 71 12 136/56 98 01/15/22 14:10 01/15/22 16:25 01/15/22 16:25 01/15/22 16:16 01/15/22 16:25 01/15/22 14:10 Period Temp Pulse Resp BP Sys/Nielsen Pulse Ox O2 Del Method O2 Flow Rate Last 24 Hr 36.1 C 69-76 12-19 136-152/51-61 96-98 Room Air Intake and Output 01/15/22 01/15/22 01/15/22 05:59 13:59 21:59 Weight 94.801 kg Patient Weight 01/16/22 05:59 Weight 94.801 kg Intake & Output: Intake & Output 01/15/22 01/15/22 01/15/22 05:59 13:59 21:59 Weight 94.801 kg General appearance: average body habitus and mild distress Head Head exam: Present normal inspection Eye Eye exam: Present EOMI Pupils: Present miosis ENT ENT exam: Present mucous membranes dry Respiratory Respiratory exam: Present decreased breath sounds Cardiovascular Cardiovascular exam: Present normal rate and rhythm, RRR and systolic murmur; Absent rubs GI/Abdominal GI/Abdominal exam: Present normal bowel sounds Extremities Exam Extremities exam: Present pedal edema Additional comments: ecchymosis Neurological Exam Neurological exam: Present CN II-XII intact and oriented X3 Psychiatric Psychiatric exam: Present flat affect Skin Skin exam: Present erythema Additional comments: ecchymosis A/P Assessment and plan (1) End-stage renal disease needing dialysis: Assessment and plan: Initiate hemodialysis over the next 3 days with increasing treatment time Status: Chronic (2) Mass of left lung: Assessment and plan: Needs a tissue diagnosis Plan: Sputum cytology x 3 Status: Chronic Comment: See CT 12/2021 Needs tissue Dx (3) Anemia in ESRD (end-stage renal disease): Assessment and plan: Aranesp 100 mcg every Status: Chronic (4) Hyperparathyroidism due to renal insufficiency: Assessment and plan: PTH approaching 200 Initiate phosphate binders and calcitriol Status: Chronic (5) Hypoglycemia: Assessment and plan: Stop glipizide Could be a paraneoplastic event Probably will need no treatment for his diabetes forthcoming Status: Acute Time Spent With Patient Time: Total time spent is greater than 50% in coordination of care (as documented) at patient's floor/unit and/or counseling patient:
[2022-01-15 17:27] LABS: Appearance,Urine CLEAR (Clear); Bilirubin,Urine Negative (Negative); Color,Urine STRAW; Culture Indicated,Urine No; Glucose,Urine (UA) Negative (Negative); Ketones,Urine Negative (Negative); Leukocyte Esterase,Urine 75 /uL (Negative); Mucus,Urine FEW /hpf; Nitrate,Urine Negative (Negative); Protein,Urine 100 mg/dL (Negative); Specific Gravity,Urine 1.009 (1.000-1.035); Urine Blood Negative (Negative); Urine RBC 1 /hpf (0-3); Urine Squamous Epithelial Cell 1 /hpf (0-4); Urine WBC 2 /hpf (0-4); Urobilinogen,Urine Negative
[2022-01-15] MEDS ORDERED: DEXTROSE 31 GM ORAL.SUSP PO PRN (18:11)
[2022-01-15] MEDS ORDERED: DEXTROSE 50% 50 ML VIAL IV PRN (18:11)
[2022-01-15] MEDS ORDERED: ONDANSETRON 4 MG/2 ML VIAL IV PRN (18:11)
[2022-01-15] MEDS: CALCIUM ACETATE 667 MG CAPSULE PO SCH (18:48)
[2022-01-15] MEDS: INSULIN LISPRO 1 UNIT/0.01 ML UNIT SQ SCH ×2 (18:48→21:59)
[2022-01-15] MEDS: SENNOSIDES 1 TABLET PO SCH (20:20)
[2022-01-15] MEDS: DOCUSATE SODIUM 100 MG CAPSULE PO SCH (20:21)
[2022-01-15] MEDS: 0.9 % SODIUM CHLORIDE 10 ML SYRINGE IV SCH (20:21)
[2022-01-15] MEDS: ACETAMINOPHEN 325 MG TABLET PO PRN (20:32)
[2022-01-15] MEDS ORDERED: ACETAMINOPHEN 325 MG TABLET PO ONE (20:42)
[2022-01-16] MEDS: 0.9 % SODIUM CHLORIDE 10 ML SYRINGE IV SCH ×3 (05:24→20:34)
[2022-01-16 07:03] LABS: Estimated Average Glucose(eAG) 137 mg/dL; Hemoglobin A1C 6.4 % Hgb (4.0-6.0)
[2022-01-16 08:03] LABS: Blood Urea Nitrogen 130 mg/dL (8-23); Calcium 9.3 mg/dL (8.6-10.4); Carbon Dioxide 20 mmol/L (22-30); Chloride 104 mmol/L (96-108); Glomerular Filtration Rate 10; Glucose 55 mg/dL (70-105)
[2022-01-16] MEDS ORDERED: CALCITRIOL 0.25 MCG CAPSULE PO SCH (09:00)
[2022-01-16] MEDS: INSULIN LISPRO 1 UNIT/0.01 ML UNIT SQ SCH ×4 (09:07→20:34)
[2022-01-16] MEDS: DOCUSATE SODIUM 100 MG CAPSULE PO SCH ×2 (09:30→20:34)
[2022-01-16] MEDS: CALCIUM ACETATE 667 MG CAPSULE PO SCH ×3 (09:31→17:19)
[2022-01-16] MEDS ORDERED: DARBEPOETIN ALFA 100 MCG/ML VIAL IV SCH (11:00)
--- NOTE | 2022-01-16 14:16 | Internal Med Progress Note ---
SUBJECTIVE Subjective Patient information: Note initiated : 01/16/22 at 2:14 pm Service Date, if different from initiated Date: [] Patient: Rito Fleming 76 y/o M admitted on 01/15/22 for Blood sugar problem-hypoglycemia. Chief Complaint: [] Principal diagnosis: Hypoglycemia Interval history: Mr. Fleming is a 76-year-old male with a history of hypertension, hyperlipidemia, type 2 diabetes mellitus, prior CKD stage IV with recent ANNA now progressed to ESRD, recent tunneled hemodialysis catheter with plans to start hemodialysis 01/16/2022, lung mass of uncertain etiology Presented to the ED for an acute hypoglycemic event in clinic. The patient takes glipizide 10 mg daily and has done so for some time. The patient says that he has had no issues with glipizide before however his renal function has now progressed to the point where glipizide may little longer be indicated. Patient was monitored in the ED with no further hypoglycemic events noted. Hospital medicine was consulted for admission for close monitoring. 01/16 Patient had a blood sugar level of 66 this morning, corrected with oral glucose. No further episodes of hypoglycemia. Will receive hemodialysis today. Physical exam Head: Atraumatic, normal inspection. Eyes: normal appearance, no scleral icterus. Neck: full ROM Respiratory: no respiratory distress. Cardiovascular: Tunneled hemodialysis and a right IJ, normal rate and rhythm, S1, S2. GI/Abdominal: soft, nontender, no guarding. Extremities: full range of motion, nontender. Neurological: CN II-XII intact, intact motor, intact sensation. Psychiatric: normal mood. Skin: warm, normal color Constitutional Vitals: Vital Signs Temp Pulse Resp BP Pulse Ox O2 Del Method 97.9 F 69 16 144/73 95 01/16/22 12:55 01/16/22 12:55 01/16/22 07:54 01/16/22 12:55 01/16/22 12:00 01/16/22 12:00 Period Temp Pulse Resp BP Sys/Nielsen Pulse Ox O2 Del Method O2 Flow Rate Last 24 Hr 97.0 F-98.7 F 60-90 11-21 115-169/43-73 95-99 Room Air-Room Air Intake and Output 01/16/22 01/16/22 01/16/22 05:59 13:59 21:59 Intake Total 100 118 350 Output Total 600 1300 Balance -500 -1182 350 Intake & Output: Intake & Output 01/16/22 01/16/22 01/16/22 05:59 13:59 21:59 Intake Total 100 118 350 Output Total 600 1300 Balance -500 -1182 350 Intake: Oral 100 118 350 Output: Void Amount 600 300 Hemodialysis UF 1000 Other: Meal Breakfast Lunch Percent of Meal Consumed 100% 100% Feeding Ability Independent Independent Urine Appearance Clear Urine Color Yellow # Voids 1 1 OBJ DATA Labs CBC & Chem 7: 01/16/22 05:10 Labs: Abnormal Lab Results 01/16/22 01/15/22 01/15/22 05:10 16:05 14:22 POC Hct 22.0 L POC Potassium 5.2 H Carbon Dioxide 20 L Anion Gap 17.0 H POC BUN > 140 H* BUN 130 H* Creatinine 5.2 H* POC Creatinine 6.1 H* Glucose 55 L POC Glucose 123 H Hemoglobin A1c 6.4 H POC WB Ioniz Calcium 1.15 L Urine Protein 100 A Ur Leukocyte Esterase 75 A Urine Mucus Few A Meds: Medications Acetaminophen (Acetaminophen 325 Mg Tablet) 650 mg PO Q4HP PRN; Protocol PRN Reason: Per Pain Protocol Last Admin: 01/15/22 20:32 Dose: 650 mg Calcitriol (Calcitriol 0.25 Mcg Capsule) 0.25 mcg PO TuThSa@0900 [facility] Last Admin: 01/16/22 09:31 Dose: 0.25 mcg Calcium Acetate (Calcium Acetate 667 Mg Capsule) 667 mg PO TIDCC [facility] Last Admin: 01/16/22 13:53 Dose: 667 mg Darbepoetin Javid (Darbepoetin Javid 100 Mcg/Ml Vial) 100 mcg IV Q7D [facility] Last Admin: 01/16/22 10:58 Dose: 100 mcg Dextrose (Dextrose 50% 50 Ml Vial) 0 ml IV UD PRN PRN Reason: Per Sliding Scale Diagnostic Test (Pha) (Accu-Chek 1 Each Strip) 1 each FS ACHS [facility] Last Admin: 01/16/22 12:23 Dose: 1 each Docusate Sodium (Docusate Sodium 100 Mg Capsule) 100 mg PO BID [facility] Last Admin: 01/16/22 09:30 Dose: Not Given Glucose (Dextrose 31 Gm Oral.Susp) 15 gm PO PRN PRN PRN Reason: Hypoglycemia Insulin Human Lispro (Insulin Lispro 1 Unit/0.01 Ml Unit) 0 unit SQ ACHS [facility]; Protocol Last Admin: 01/16/22 12:28 Dose: 1 units Ondansetron HCl (Ondansetron 4 Mg/2 Ml Vial) 4 mg IV Q6HP PRN PRN Reason: Nausea And Vomiting Pneumococcal Polyvalent Vaccine (Pneumococcal 23-Silke P-Sac Vac 0.5 Ml Syringe) 0.5 ml IM .ONCE ONE Stop: 01/17/22 10:01 Senna (Sennosides 1 Tablet) 2 tab PO HS [facility] Last Admin: 01/15/22 20:20 Dose: Not Given Sodium Chloride (0.9 % Sodium Chloride 10 Ml Syringe) 10 ml IV Q8 [facility] Last Admin: 01/16/22 13:12 Dose: 10 ml A/P Narrative A/P Narrative: Assessment: 76-year-old male with a history of hypertension, hyperlipidemia, type 2 diabetes mellitus, prior CKD stage IV with recent ANNA now progressed to ESRD, recent tunneled hemodialysis catheter with plans to start hemodialysis 01/16/2022, lung mass of uncertain etiology admitted to observation for hypoglycemia likely secondary to glipizide. #Hypoglycemia secondary to glipizide in the setting of ESRD #Mild hyperkalemia #ESRD starting hemodialysis 01/16/2022 #Type 2 diabetes mellitus #Hypertension #Hyperlipidemia #Lung mass #CHELY Plan -Observation status, monitor glucose closely. -Holding glipizide, do not resume at discharge. -Correction Humalog SSIlow. -Hypoglycemia protocol. -Home medication reconciliation, continue other important meds. -Hemodialysis via tunneled HD catheter planned for tomorrow. -Hemodialysis consistent carbohydrate diet. -CODE STATUS: Full -Disposition: Likely discharge to home tomorrow. Time Spent With Patient Time: Total time spent is greater than 50% in coordination of care (as documented) at patient's floor/unit and/or counseling patient: QUALITY VTE Deep Vein Thrombosis/Pulmonary Embolism Present on Admission: No
--- NOTE | 2022-01-16 15:23 | Nephrology Progress Note ---
SUBJECTIVE Subjective Patient information: Note initiated : 01/16/22 at 3:18 pm Service Date, if different from initiated Date: [] Patient: Rito Fleming 76 y/o M admitted on 01/15/22 for Blood sugar problem-hypoglycemia. Chief Complaint: [Recurrent hypoglycemia] Principal diagnosis: Hypoglycemia Interval history: Patient's last dose of glipizide was yesterday. His blood sugar this morning was 55 and a simultaneous cortisol level was only 11. 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 Finally there is an issue of a pulmonary mass and the possibility of a paraneoplastic syndrome. For now the only thing we can do is discontinue his glipizide and see what happens. Underwent a short dialysis with 1 L ultrafiltration without problem today. This was his first treatment. if not going home tomorrow, will repeat 2 hours tomorrow. So far has not been able to produce a sputum to see if a miracle happens and we can make it tissue diagnosis based on a sputum sample. Vital Signs Temp Pulse Pulse Resp BP BP Pulse Ox 01/16/22 12:00 36.3 C 69 136/43 95 01/16/22 12:55 36.6 C 69 144/73 01/16/22 12:30 66 136/69 01/16/22 11:59 69 136/63 01/16/22 11:27 60 143/65 01/16/22 08:55 96 01/16/22 10:55 36.4 C 60 138/65 01/16/22 07:54 36.6 C 75 16 150/65 96 01/16/22 03:30 36.5 C 77 16 115/53 98 01/15/22 23:50 37.1 C 90 20 153/68 97 01/15/22 18:10 36.8 C 75 20 169/65 98 01/15/22 18:10 36.8 C 75 20 169/65 98 01/15/22 17:53 36.1 C 73 12 151/64 98 01/15/22 17:31 73 12 151/64 98 01/15/22 17:16 71 13 137/58 98 01/15/22 17:01 71 14 148/62 98 01/15/22 16:46 70 21 138/61 99 01/15/22 16:31 69 11 L 132/61 97 01/15/22 16:25 71 12 98 01/15/22 16:16 71 13 136/56 98 01/15/22 16:14 73 13 139/60 98 01/15/22 15:46 76 16 138/53 98 01/15/22 15:31 70 142/51 97 O2 Del Method 01/16/22 12:00 Room Air 01/16/22 12:55 01/16/22 12:30 01/16/22 11:59 01/16/22 11:27 01/16/22 08:55 Room Air 01/16/22 10:55 01/16/22 07:54 Room Air 01/16/22 03:30 Room Air 01/15/22 23:50 Room Air 01/15/22 18:10 Room Air 01/15/22 18:10 Room Air 01/15/22 17:53 01/15/22 17:31 01/15/22 17:16 01/15/22 17:01 01/15/22 16:46 01/15/22 16:31 01/15/22 16:25 01/15/22 16:16 01/15/22 16:14 01/15/22 15:46 01/15/22 15:31 Intake and Output 01/16/22 01/16/22 01/16/22 05:59 13:59 21:59 Intake Total 100 118 350 Output Total 600 1300 Balance -500 -1182 350 Intake: Oral 100 118 350 Output: Void Amount 600 300 Hemodialysis UF 1000 Other: Meal Breakfast Lunch Percent of Meal Consumed 100% 100% Feeding Ability Independent Independent Urine Appearance Clear Urine Color Yellow # Voids 1 1 Pertinent ROS: Nothing new Additional PMFSH (Level 3 Only): N/AA Constitutional Vitals: Vital Signs Temp Pulse Resp BP Pulse Ox O2 Del Method 36.6 C 69 16 144/73 95 01/16/22 12:55 01/16/22 12:55 01/16/22 07:54 01/16/22 12:55 01/16/22 12:00 01/16/22 12:00 Period Temp Pulse Resp BP Sys/Nielsen Pulse Ox O2 Del Method O2 Flow Rate Last 24 Hr 36.1 C-37.1 C 60-90 11-21 115-169/43-73 95-99 Room Air-Room Air Intake and Output 01/16/22 01/16/22 01/16/22 05:59 13:59 21:59 Intake Total 100 118 350 Output Total 600 1300 Balance -500 -1182 350 Intake & Output: Intake & Output 01/16/22 01/16/22 01/16/22 05:59 13:59 21:59 Intake Total 100 118 350 Output Total 600 1300 Balance -500 -1182 350 Intake: Oral 100 118 350 Output: Void Amount 600 300 Hemodialysis UF 1000 Other: Meal Breakfast Lunch Percent of Meal Consumed 100% 100% Feeding Ability Independent Independent Urine Appearance Clear Urine Color Yellow # Voids 1 1 General appearance: disheveled and no acute distress Head Head exam: Present normal inspection Eye Eye exam: Present EOMI and PERRL; Absent scleral icterus Pupils: Present miosis ENT ENT exam: Present mucous membranes dry Respiratory Respiratory exam: Present decreased breath sounds and rhonchi Cardiovascular Cardiovascular exam: Present normal rate and rhythm, +S1, +S2 and systolic murmur (3/6) GI/Abdominal GI/Abdominal exam: Present normal bowel sounds Extremities Exam Extremities exam: Present pedal edema (1(+)) Neurological Exam Neurological exam: Present alert and CN II-XII intact Psychiatric Psychiatric exam: Present normal affect Skin Skin exam: Present abrasion and dry A/P Assessment and plan (1) Hypoglycemia: Assessment and plan: Multifactorial including prolonged half-life of glipizide, lack of gluconeogenesis by the kidneys, not the best cortisol response by the adrenal glands and possible paraneoplastic syndrome. The longer his AM blood sugar remans low, the more likely causes not including glipizide are likely Status: Acute (2) Anemia due to stage 5 chronic kidney disease treated with darbepoetin: Assessment and plan: Aranesp Status: Chronic Comment: KIRA (3) End-stage renal disease needing dialysis: Assessment and plan: Initiate HD Status: Chronic (4) Mass of left lung: Assessment and plan: For crying out loud, this his third hospitalization and NO ATTEMPT HAS BEEN MADE TO ACHIEVE A TISSUE DIAGNOSIS. Status: Chronic Comment: See CT 12/2021 Needs tissue Dx Time Spent With Patient Time: Total time spent is greater than 50% in coordination of care (as documented) at patient's floor/unit and/or counseling patient:
[2022-01-16] MEDS: ACETAMINOPHEN 325 MG TABLET PO PRN (17:05)
[2022-01-16] MEDS: SENNOSIDES 1 TABLET PO SCH (20:34)
[2022-01-16] MEDS ORDERED: hydrALAZINE 20 MG/ML VIAL IV PRN (20:55)
[2022-01-16] MEDS: CARVEDILOL 3.125 MG TABLET PO SCH (21:31)
[2022-01-17] MEDS: 0.9 % SODIUM CHLORIDE 10 ML SYRINGE IV SCH (05:06)
[2022-01-17] MEDS: INSULIN LISPRO 1 UNIT/0.01 ML UNIT SQ SCH ×2 (08:22→11:42)
[2022-01-17] MEDS: CALCIUM ACETATE 667 MG CAPSULE PO SCH (08:22)
[2022-01-17] MEDS: DOCUSATE SODIUM 100 MG CAPSULE PO SCH (08:25)
[2022-01-17] MEDS: CARVEDILOL 3.125 MG TABLET PO SCH (08:57)
--- NOTE | 2022-01-17 09:03 | Discharge Summary ---
Discharge Provider Provider IMPORTANT FOLLOW-UP INFORMATION FOR PCP: Patient information: Note initiated : 01/17/22 at 9:00 am Service Date, if different from initiated Date: [] Patient: Rito Fleming 76 y/o M admitted on 01/15/22 for Blood sugar problem-hypoglycemia. Chief Complaint: [] Date of admission: 01/15/22 17:54 Discharge date: 01/17/22 Primary care physician: RUT Campos Consults: 01/15/22 Consult to Physician [CONS] Stat Comment: Consulting Provider: Gigi Brower Reason For Exam: Physician to Consult Consult to Physician [CONS] Stat Comment: Consulting Provider: Vinnie Logan Reason For Exam: Physician to Consult COURSE Hospital Course Hospital course: Mr. Fleming is a 76-year-old male with a history of hypertension, hyperlipidemia, type 2 diabetes mellitus, prior CKD stage IV with recent ANNA now progressed to ESRD, recent tunneled hemodialysis catheter with plans to start hemodialysis 01/16/2022, lung mass of uncertain etiology Presented to the ED for an acute hypoglycemic event in clinic. The patient takes glipizide 10 mg daily and has done so for some time. The patient says that he has had no issues with glipizide before however his renal function has now progressed to the point where glipizide may little longer be indicated. Patient was monitored in the ED with no further hypoglycemic events noted. Hospital medicine was consulted for admission for close monitoring. 01/17 Patient tolerated hemodialysis well, no further episodes of hypoglycemia. Patient had elevated blood pressures overnight. Discharged to home with PCP follow-up, did not resume glipizide at follow-up. The patient was instructed to keep a blood sugar diary, preferably checking his blood sugars 4 times a day including fasting blood sugar in the morning and take that information to his follow-up PCP appointment. Hemoglobin A1c result was 6.4. Will request a clinical unit educator referral at discharge. Physical exam Head: Atraumatic, normal inspection. Eyes: normal appearance, no scleral icterus. Neck: full ROM Respiratory: no respiratory distress. Cardiovascular: normal rate and rhythm, S1, S2. GI/Abdominal: soft, nontender, no guarding. Extremities: full range of motion, nontender. Neurological: CN II-XII intact, intact motor, intact sensation. Psychiatric: normal mood. Skin: warm, normal color Discharge diagnosis: Hypoglycemia Secondary discharge diagnosis: ESRD on hemodialysis Type 2 diabetes mellitus Time Spent with Patient Time attestation: Total time spent providing and/or coordinating discharge services: Time spent: Less than 30 minutes EXAM Constitutional Vitals: Temp Pulse Resp BP Pulse Ox O2 Del Method 98.1 F 72 16 127/59 95 01/17/22 08:35 01/17/22 08:35 01/17/22 08:35 01/17/22 08:35 01/17/22 08:35 01/17/22 08:35 Discharge Data Data Completed and Pending Labs on day of discharge: Labs from last 24 hours 01/16/22 05:10 Anti-CV2/CRMP-5 Ab Pending Paraneoplastic Ab Confm Pending Paraneoplas Tis Obs IFA Pending Neuronal Nuc Ab Type 1 Pending Neuronal Nuc Ab Type 2 Pending Neuronal Nuc Ab Type 3 Pending Neuronal IgG Titer IFA Pending AGNA/SOX 1 AB (IFA) Pending RAT FARMER-1 (Yo) Ab (IFA) Pending Purkinje Cell (RAT FARMER-2) Pending Purkinje (RAT FARMER-2) IFA Pending Purkinje (RAT FARMER-2) Titer Pending RAT FARMER-Tr DNER Ab (IFA) Pending CRMP-5 Ab ([place]) Pending Amphiphysin Antibody Pending Amphiphysin Ab (WB) Pending Ca Channel Bind Ab - N Pending Volt-[place] Ca Channel Ab Pending [place] K Channel Ab Pending Striated Muscle Ab Ttr Pending Striated Muscle IgG Ab Pending Aquaporin 4 Receptor Ab Pending Acetylcholine Recept Ab Pending Acetylchol Rcpt Bind Ab Pending Acetylchol Rcpt Modu Ab Pending Discharge Plan Patient/Caregiver Discharge Instructions Activity: increase activity as tolerated Diet: Consistent Carbohydrate Prescriptions: Continued furosemide 20 mg tablet 20 mg PO BID Qty: 180 2RF tamsulosin 0.4 mg capsule 0.4 mg PO QHS famotidine 40 mg tablet 20 mg PO BID fluticasone propionate 50 mcg/actuation spray,suspension 1 spray intranasal QDAY PRN (Reason: Hayfever) Rx Instructions: administer into each nostril pravastatin 40 mg tablet 10 mg PO QDAY Aranesp (in polysorbate) 60 mcg/mL solution 60 mcg subcut Q2W carvedilol 3.125 mg tablet 3.125 mg PO BID Rx Instructions: must administer with a meal/food hydralazine 100 mg tablet 100 mg PO TID Qty: 300 3RF Rx Instructions: NEW DOSE diltiazem HCl 120 mg capsule,extended release 24hr 1 cap PO QDAY Rx Instructions: DO NOT TAKE IF HR LESS THAN 60/MIN albuterol sulfate 90 mcg/actuation HFA aerosol inhaler 2 puff INHALATION Q4H PRN (Reason: Shortness Of Breath Or Wheezing) calcitriol [Rocaltrol] 0.25 mcg capsule 0.25 mcg PO HS Rx Instructions: TAKE ONE CAPSULE BY MOUTH EVERY THURSDAY, THURSDAY, AND THURSDAY Discontinued glipizide 10 mg tablet 10 mg PO QDAY Follow Up Plan Follow up with: Elizabeth Heredia ARNP [Primary Care Provider] - Patient Disposition: Home, Self-Care Overall status at discharge: patient is progressing back to baseline Discharge Orders: Discharge Order (Routine); Ordered 01/17/22 Ordered By: Gigi MORGAN VTE Deep Vein Thrombosis/Pulmonary Embolism Present on Admission: No
[2022-01-17] MEDS ORDERED: PNEUMOCOCCAL 23-VAL P-SAC VAC 0.5 ML SYRINGE IM ONE (10:00)
[2022-01-30 00:21] LABS: ACTH Receptor Binding AB <0.30 nmol/L; ACTH Receptor Ganglionic AB <55 pmol/L (<55); Amphiphysin AB WB <11 SI (<11); CRMP5/CV2 AB WB <11 SI (<11); Striated Muscle AB Screen NEGATIVE (NEGATIVE); VGKC AB <80 pmol/L (<80); Voltage Gated CA Channel AB <30 pmol/L (<30); Voltage Gated CBA Type N AB <54 pmol/L (<54)
== END 2022-01-17 11:35 | disposition home or self-care (01) ==
LOC: MEDSUR 14:08 → ED 14:08 → MEDSUR 18:00
PROVIDERS: ADMIT Internal Medicine; ATTEND Internal Medicine

== ENCOUNTER 2022-04-27 11:43 | Inpatient (IN) ==
--- NOTE | 2022-04-27 11:48 | Emergency Department Note ---
Syncope HPI General Chief Complaint: Syncope Stated Complaint: fall, syncope, low blood pressure Time Seen by Provider: 04/27/22 11:48 Mode of arrival: ambulatory Limitations: no limitations History of Present Illness HPI Narrative: Narrative: Patient is a 76-year-old male who was brought into the emergency department today by EMS after he had a syncopal episode around 230 this morning while he was at home. Patient is not sure why he fell but he fell and hit his head on the bathtub. He reports aching sensation of the left side of his head. He denies any neck pain. He is a hemodialysis patient and received hemodialysis yesterday. He started hemodialysis approximately a month ago. Patient reports that he has been tolerating hemodialysis well. Patient indicates that he is felt lightheaded with standing and feels that yesterday he was slightly lightheaded before he fell. He did have a fever yesterday. He denies any cough or chest pain. He denies any abdominal pain or nausea. He did vomit once last night and denies any hematic emesis. He denies any melena, hematochezia, or constipation. He has had occasional diarrhea of loose brown stool. He has not had any confusion or weakness. He has not had any neck pain, back pain, joint pains. He is not on anticoagulants. He denies any dysuria, urinary frequency, urgency, or hesitancy. Related Data Home Medications Medication Instructions Recorded Confirmed amlodipine 5 mg tablet 1 tab PO QDAY 04/27/22 04/27/22 carvedilol 3.125 mg tablet 1 tab PO BID 04/27/22 04/27/22 famotidine 20 mg tablet 1 tab PO BID 04/27/22 04/27/22 furosemide 20 mg tablet 1 tab PO BID 04/27/22 04/27/22 pravastatin 10 mg tablet 1 tab PO QDAY 04/27/22 04/27/22 tamsulosin 0.4 mg capsule 2 cap PO QDAY 04/27/22 04/27/22 Previous Rx's Medication Instructions Recorded insulin glargine 100 unit/mL (3 10 unit (0.1 mL) subcut QPM DM #15 01/22/22 mL) subcutaneous pen (Basaglar mL KwikPen U-100 Insulin) pen needle, diabetic 31 gauge x #100 ea 01/22/22/16" (Lite Touch Insulin Pen [place]) amoxicillin 500 mg-potassium 1 tab PO Q12H #14 tabs 04/27/22 clavulanate 125 mg tablet (Augmentin) azithromycin 250 mg tablet See Rx Instructions PO DAILY 04/27/22 infection #4 tabs Allergies Allergy/AdvReac Type Severity Reaction Status Date / Time doxazosin AdvReac Mild Vomiting Verified 03/19/22 16:51 Review of Systems ROS ROS Narrative: Narrative: All systems ED: reviewed and negative except as stated. PFSH Narrative Patient History Narrative: Narrative: Medical/Surgical/Family History All Active Problems (Updated 04/27/22 @ 13:38 by RUT Adkins) Nocturia (Chronic) Hypertension (Chronic) Chronic kidney disease, stage 4 (severe) (Chronic) Diabetes mellitus (Chronic) Diabetic retinopathy (Chronic) Macular puckering (Chronic) Cellulitis (Chronic) Chronic sinusitis (Chronic) SOB (shortness of breath) (Chronic) Wheezing (Chronic) Acid reflux (Chronic) Urinary urgency (Chronic) Chronic stasis dermatitis (Chronic) Morbidly obese (Chronic) No significant past surgical history (Chronic) Hyperkalemia (Acute) Uncontrolled type 2 diabetes mellitus with stage 4 chronic kidney disease, with long-term current use of insulin (Chronic) 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) Hyperparathyroidism due to renal insufficiency (Chronic) Chronic kidney disease (CKD), stage IV (severe) (Chronic) Chronic diastolic CHF (congestive heart failure), NYHA class 2 (Chronic) Hypotension (Acute) CHF (congestive heart failure) (Acute) BPH (benign prostatic hyperplasia) (Acute) Essential hypertension (Chronic) Diabetes mellitus with chronic kidney disease, without long-term current use of insulin (Chronic) Acute neck pain (Acute) Acute neck pain (Acute) Viral syndrome (Acute) Acute anemia (Acute) Anemia due to stage 4 chronic kidney disease treated with darbepoetin (Acute) Iron deficiency (Acute) Mass of left lung (Chronic) TIA (transient ischemic attack) (Acute) Transient confusion (Acute) ANNA (acute kidney injury) (Acute) Acute renal failure superimposed on stage 5 chronic kidney disease, not on chronic dialysis (Acute) End-stage renal disease needing dialysis (Chronic) Anemia due to stage 5 chronic kidney disease treated with darbepoetin (Chronic) Anemia in ESRD (end-stage renal disease) (Chronic) Hypoglycemia (Acute) Hypoglycemia (Acute) Uncontrolled type 2 diabetes mellitus with ESRD (end-stage renal disease) (Acute) Strain of sternocleidomastoid muscle (Acute) Pneumonia (Acute) Medical History Acid reflux Cellulitis Chronic diastolic CHF (congestive heart failure), NYHA class 2 Suspect HTN > valvular heart disease. 05/2021: Add diltiazem in place of amlodipine Chronic kidney disease (CKD), stage IV (severe) HTN, NSAIDs with nephrotic range proteinuria...suspect prior NSAIDS cause and doubt DM as HgA1c well controlled over the years. Since spring, there has been worsening of GFR to 14 cc/min but improved proteinuria Chronic kidney disease, stage 4 (severe) Most likely associated with diabetes mellitus type 2 with proteinuria present Chronic sinusitis Chronic stasis dermatitis Diabetes mellitus Diabetic nephropathy associated with type 2 diabetes mellitus Stable GFR and marked improvement in urine protein losses argues against DM nephropathy or marked improvement /therapeutic sucess with ACEi Diabetic retinopathy Hypertension Goal blood pressure is 130/80 He is not achieve that goal yet but is improved... Increase hydralazine to 100 mg 3 times a day on 11/13/2021 and continue lisinopril 20 mg a day and the diltiazem and carvedilol Macular puckering Morbidly obese Nocturia SOB (shortness of breath) Uncontrolled type 2 diabetes mellitus with stage 4 chronic kidney disease, with long-term current use of insulin Currently on 70/30 insulin as well as low-dose glipizide Urinary urgency Viral syndrome Wheezing Surgical History No significant past surgical history Social History Smoking Status: Former smoker Alcohol Intake Frequency: does not drink Substance Use: does not use Exam Narrative Narrative: Narrative: General Limitations: no limitations General appearance: Present alert and in no apparent distress Head Head: Present normocephalic and normal inspection Eye Eye: Present PERRL, miosis (constriction), visual cleaning intact and other (Negative skew test.); Absent scleral icterus, nystagmus, periorbital swelling or periorbital tenderness ENT ENT: Present mucous membranes moist and normal external ear exam Neck Neck: Present normal inspection and full ROM; Absent tenderness Chest Chest: Present normal inspection, symmetric chest wall rise and other (Central line right upper chest. Dressing dry and intact.); Absent tenderness Respiratory Respiratory: Present normal lung sounds bilaterally (with slightly diminished bases bilaterally. ); Absent respiratory distress, rales/crackles, wheezes or accessory muscle use Cardiovascular Cardiovascular: Present regular rate, normal rhythm and normal heart sounds; Absent JVD Adbominal Abdominal: Present soft; Absent distention or tenderness Extremities Extremities: Present normal inspection, full ROM and normal capillary refill; Absent tenderness or cyanosis Back Back: Absent tenderness Neurological Neurological: Present alert, oriented X3 and CN II-XII intact; Absent motor sen roberto deficit Expanded Neurological Motor strength - LUE: 5/5 Motor strength - RUE: 5/5 Motor strength - LLE: 5/5 Motor strength - RLE: 5/5 Coma Scale Eye Opening: Spontaneous Coma Scale Motor Response: Obeys Commands Coma Scale Verbal Response: Oriented Coma Scale Total: 15 Skin Skin: Present warm (WNL), dry and normal color Course Vital Signs Vital signs: Vital Signs Temperature 98.0 F 04/27/22 11:46 Pulse Rate 91 H 04/27/22 11:46 Respiratory Rate 18 04/27/22 11:46 Blood Pressure 137/116 04/27/22 11:46 Pulse Oximetry (%) 97 04/27/22 11:46 Oxygen Delivery Method 04/27/22 11:46 Temperature 98.0 F 04/27/22 11:46 Pulse Rate 88 04/27/22 13:37 Respiratory Rate 15 04/27/22 13:37 Blood Pressure 111/51 04/27/22 13:31 Pulse Oximetry (%) 95 04/27/22 13:37 Oxygen Delivery Method 04/27/22 11:46 MDM MDM Narrative Medical decision making narrative: Narrative: Patient is a 76-year-old male who was brought in [facility] emergency [facility] by EMS after he had a syncopal episode and fell earlier this morning hitting the left side of his head on the bathtub. EKG today is normal sinus rhythm with right bundle branch block. This is not a new finding for the patient and is comparable to previous EKG. Noncontrast head CT ordered today as well as [id number] chemistry panel, CBC, troponin, Accu-Chek, urine dipstick, and 1 view chest x-ray. Patient's potassium is low at 3.0. Patient was given 40 mEq of oral potassium today for r eplacement of the hypokalemia. Patient's head CT today is negative for acute findings. His chest x-ray to my review shows infiltrate in the right lower lobe. Patient's white count today is 19,000. Procalcitonin 19.4. Lactic acid normal. No findings of sepsis seen. Patient is not having any hypoxia, tachycardia, or fever. His H&H is stable and does show improvement from previous H&H. He is anemia is most likely related to chronic kidney disease. His [id number]-gr-[id number] troponin normal at 0.04. His renal function is at his baseline. Today a structured, evidence-based clinical evaluation was used to determine the need for hospitalization versus outpatient treatment with this patient today, and with the clinical signs and symptoms of pneumonia. Patient is will be treated as an outpatient today as he does not have any hypoxia or sign of sepsis and is able to tolerate oral antibiotic. Hospitalization, even for a short period, carries significant risks, and the risk of further imaging or hospitalization is likely higher than the risk of the patient failing outpatient therapy. It is therefore in the patient's best interest not to undergo further testing or be hospitalized at this time. I have discussed with the patient my clinical impression, and patient agrees that further testing today or hospitalization will likely exceed any potential benefit. Patient will be treated as an outpatient for pneumonia, and the patient was given instruction for follow-up or when to return. Patient agreeable with the plan for outpatient treatment today. Prior to discharge from the emergency department he received 500 mg of azithromycin IV and 1 g of Rocephin IV. We will treat the patient with macrolide and Beta-lactam antibiotic for community-acquired pneumonia. He does have close clinical follow-up with his PCP as well as his customer service voice. Lab Data Lab results reviewed: Yes I reviewed the patient's lab results. Result diagrams: 04/27/22 12:01 Labs: Lab Results 04/27/22 04/27/22 04/27/22 Range/Units 11:56 11:56 11:59 WBC (4.5-11.0) K/mcL RBC (4.63-6.08) M/mcL Hgb (13.7-17.5) g/dL Hct (40.1-51.0) % POC Hct 35.0 L (41-55) MCV (80.0-100.0) fL MCH (26.0-34.0) pg MCHC (31.0-36.0) g/dL RDW (11.5-14.5) % Plt Count (140-440) K/mcL MPV (8.8-12.5) fL Immature Gran % (Auto) (0.0-0.5) % Neut % (Auto) (38.0-78.0) % Lymph % (Auto) (15.5-49.0) % Faulkner % (Auto) (1.0-12.0) % Eos % (Auto) (0.0-7.0) % Baso % (Auto) (0.0-2.0) % Lymph # (Auto) (1.50-4.80) K/mcL Faulkner # (Auto) (0.10-0.90) K/mcL Eos # (Auto) (0.00-0.70) K/mcL Baso # (Auto) (0.00-0.30) K/mcL Immature Gran # (0.00-0.05) K/mcl Absolute Neutrophils (1.80-8.00) K/mcL POC VBG pH 7.42 (7.32-7.42) POC VBG pCO2 at Temp 39.1 L (41-51) POC VBG pO2 33 (25-40) POC VBG HCO3 25.4 (24-28) POC VBG Total CO2 27.0 (25-29) POC Venous O2 Sat 64.0 (40-70) POC VBG Base Excess 1.0 (-2-2) VBG Lactic Acid 1.3 (0.5-2) POC Sodium 135 (133-145) POC Potassium 3.0 L (3.3-5.1) POC Chloride 98 (96-108) POC Total CO2 26.0 (22-30) POC BUN 70 H (6-20) POC Creatinine 6.6 H* (0.6-1.2) POC Glucose 125 H (70-105) POC WB Ioniz Calcium 1.01 L (1.16-1.32) Magnesium (1.6-2.5) mg/dL Procalcitonin (<0.10) ng/mL POC Troponin I 0.04 (0.00-0.08) 04/27/22 04/27/22 04/27/22 Range/Units 12:01 12:01 12:45 WBC 19.9 H (4.5-11.0) K/mcL RBC 3.73 L (4.63-6.08) M/mcL Hgb 10.9 L (13.7-17.5) g/dL Hct 34.2 L (40.1-51.0) % POC Hct (41-55) MCV 91.7 (80.0-100.0) fL MCH 29.2 (26.0-34.0) pg MCHC 31.9 (31.0-36.0) g/dL RDW 14.6 H (11.5-14.5) % Plt Count 267 (140-440) K/mcL MPV 10.0 (8.8-12.5) fL Immature Gran % (Auto) 0.6 H (0.0-0.5) % Neut % (Auto) 90.8 H (38.0-78.0) % Lymph % (Auto) 2.7 L (15.5-49.0) % Faulkner % (Auto) 5.3 (1.0-12.0) % Eos % (Auto) 0.4 (0.0-7.0) % Baso % (Auto) 0.2 (0.0-2.0) % Lymph # (Auto) 0.54 L (1.50-4.80) K/mcL Faulkner # (Auto) 1.05 H (0.10-0.90) K/mcL Eos # (Auto) 0.07 (0.00-0.70) K/mcL Baso # (Auto) 0.04 (0.00-0.30) K/mcL Immature Gran # 0.12 H (0.00-0.05) K/mcl Absolute Neutrophils 18.07 H (1.80-8.00) K/mcL POC VBG pH (7.32-7.42) POC VBG pCO2 at Temp (41-51) POC VBG pO2 (25-40) POC VBG HCO3 (24-28) POC VBG Total CO2 (25-29) POC Venous O2 Sat (40-70) POC VBG Base Excess (-2-2) VBG Lactic Acid (0.5-2) POC Sodium (133-145) POC Potassium (3.3-5.1) POC Chloride (96-108) POC Total CO2 (22-30) POC BUN (6-20) POC Creatinine (0.6-1.2) POC Glucose (70-105) POC WB Ioniz Calcium (1.16-1.32) Magnesium 1.6 (1.6-2.5) mg/dL Procalcitonin 19.40 H (<0.10) ng/mL POC Troponin I (0.00-0.08) ED POC Tests ED POC Tests: CAROL - Influenza A Negative CAROL - Influenza B Negative CAROL - SARS Antigen Negative Radiology Data Radiology results reviewed: Yes I reviewed the patient's radiology results. Radiology results narrative: Ordering Physician:Louis Daniel Date of Service:04/27/22 Procedure(s):CT head/brain wo con History: Fell and hit left side of head TECHNIQUE: The brain was imaged without contrast in axial plane at 2.5 mm intervals. Sagittal and coronal reformats were created. The radiation exposure was limited using dose reduction technology. FINDINGS: There is no intracranial hemorrhage, cerebral edema, infarct or mass effect. Mild atrophy is present, most apparent in the frontal lobes and around the sylvian fissures. The ventricles are normal in size. There is no abnormal extra-axial fluid collection. Bone windows show no skull fracture. There is a skin nodule lateral to the right parietal bone. This is unchanged from 12/28/21 and may be a neuroma or fibroma. No scalp hematoma is present. Visualized sinuses are clear. IMPRESSION: Normal exam for patient's age Louis Daniel was called with the report Interpreted and Authenticated by: Jason Gold 04/27/22 Discharge Plan Patient/Caregiver Discharge Instructions Pt seen by PARKING MANAGER/PA only: Yes Clinical Impression: Pneumonia, End-stage renal disease needing dialysis, Anemia in ESRD (end-stage renal disease) Activity Restrictions/Additional Instructions: Begin taking Augmentin twice a day for 7 days. Begin taking azithromycin 250 mg tablet once a day. Take antibiotics after hemodialysis. The examination and treatment you received in the emergency department today was on an emergency basis only. Care in the emergency department does not replace regular care with a primary care provider. Please follow-up with your primary care provider regarding the emergency department visit. Please also discuss this with your customer service voice tomorrow when you go to your dialysis that you are being treated with these antibiotics for pneumonia. Return to ER if you have important symptoms or findings such as significant or major: -Abdominal pain -Chest pain -Shortness of breath -Bleeding -Unexplained fever -Unexplained weakness or numbness of one side of her body, difficulty speaking, or sudden loss of vision (stroke symptoms) -Sudden new "Thunderclap" headache, OR other significant problems or symptoms Patient Disposition: Home, Self-Care Condition: Fair Follow up with: Elizabeth Heredia ARNP [Primary Care Provider] - Prescriptions: New amoxicillin-pot clavulanate [Augmentin] 500-125 mg tablet 1 tab PO Q12H Qty: 14 0RF azithromycin 250 mg tablet See Rx Instructions PO DAILY Qty: 4 0RF Rx Instructions: 1 tablet daily until gone. No Action insulin glargine [Basaglar KwikPen U-100 Insulin] 100 unit/mL (3 mL) insulin pen 10 unit subcut QPM Qty: 15 3RF Rx Instructions: Replaces oral hypoglycemics due to prolonged low BG (DME) pen needle, diabetic [Lite Touch Insulin Pen [place]] 31 gauge x 5/16" needle See Rx Instructions .Route Qty: 100 3RF Rx Instructions: As directed amlodipine 5 mg tablet 1 tab PO QDAY carvedilol 3.125 mg tablet 1 tab PO BID famotidine 20 mg tablet 1 tab PO BID pravastatin 10 mg tablet 1 tab PO QDAY tamsulosin 0.4 mg capsule 2 cap PO QDAY furosemide 20 mg tablet 1 tab PO BID
[2022-04-27 12:03] LABS: POC Calcium, Ionized 1.01 (1.16-1.32); POC Creatinine 6.6 (0.6-1.2)
[2022-04-27] MEDS ORDERED: POTASSIUM CHLORIDE 20 MEQ TABLET PO ONE ×3 (12:11→21:11)
[2022-04-27 12:31] LABS: Basophils # (Auto) 0.04 K/mcL (0.00-0.30); Basophils % (Auto) 0.2 % (0.0-2.0); Eosinophils # (Auto) 0.07 K/mcL (0.00-0.70); Eosinophils % (Auto) 0.4 % (0.0-7.0); Hematocrit 34.2 % (40.1-51.0); Hemoglobin 10.9 g/dL (13.7-17.5); Lymphocytes # (Auto) 0.54 K/mcL (1.50-4.80); Lymphocytes % (Auto) 2.7 % (15.5-49.0); Mean Cell Volume 91.7 fL (80.0-100.0); Mean Corpuscular HGB Conc 31.9 g/dL (31.0-36.0); Monocytes # (Auto) 1.05 K/mcL (0.10-0.90); Monocytes % (Auto) 5.3 % (1.0-12.0); Neutrophils % (Auto) 90.8 % (38.0-78.0); Platelet Count 267 K/mcL (140-440); RBC 3.73 M/mcL (4.63-6.08); Red Cell Distribution Width 14.6 % (11.5-14.5); WBC 19.9 K/mcL (4.5-11.0)
--- NOTE | 2022-04-27 13:13 | Cat Scan Report ---
History: Fell and hit left side of head TECHNIQUE: The brain was imaged without contrast in axial plane at 2.5 mm intervals. Sagittal and coronal reformats were created. The radiation exposure was limited using dose reduction technology. FINDINGS: There is no intracranial hemorrhage, cerebral edema, infarct or mass effect. Mild atrophy is present, most apparent in the frontal lobes and around the sylvian fissures. The ventricles are normal in size. There is no abnormal extra-axial fluid collection. Bone windows show no skull fracture. There is a skin nodule lateral to the right parietal bone. This is unchanged from 12/28/21 and may be a neuroma or fibroma. No scalp hematoma is present. Visualized sinuses are clear. IMPRESSION: Normal exam for patient's age Louis Daniel was called with the report Interpreted and Authenticated by: Jason Gold 04/27/22
[2022-04-27] MEDS ORDERED: cefTRIAXone 1 GM VIAL IV ONE (13:23)
[2022-04-27] MEDS ORDERED: AZITHROMYCIN 500 MG in DEXTROSE 5% IN WATER 250 ML IV ONE (13:25)
--- NOTE | 2022-04-27 13:54 | XRay Report ---
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 This was seen on the recent chest CT done on 03/17/22. There has been no obvious change. The lungs are otherwise clear with no acute infiltrate or metastasis. Heart size and pulmonary vasculature are normal. No pleural effusion is present. There is a dual-lumen central venous line placed to the right internal jugular vein into the superior vena cava. No fracture is detected. 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
[2022-04-27] MEDS ORDERED: MIDODRINE 5 MG TABLET PO ONE (15:35)
[2022-04-27] MEDS ORDERED: ACETAMINOPHEN 325 MG TABLET PO ONE (15:38)
[2022-04-27 19:18] LABS: Appearance,Urine CLEAR (Clear); Bilirubin,Urine NEGATIVE (Negative); Color,Urine YELLOW; Culture Indicated,Urine No; Glucose,Urine (UA) NEGATIVE (Negative); Ketones,Urine TRACE mg/dL (Negative); Leukocyte Esterase,Urine NEGATIVE /uL (Negative); Mucus,Urine FEW /hpf; Nitrate,Urine NEGATIVE (Negative); Protein,Urine 100 mg/dL (Negative); Specific Gravity,Urine 1.015 (1.000-1.035); Urine Amorphous Crystals FEW /hpf; Urine Blood SMALL ery/mcL (Negative); Urine RBC 1 /hpf (0-3); Urine Squamous Epithelial Cell 2 /hpf (0-4); Urine Transitional Epi Cells < 1 /hpf (0-2); Urine WBC 1 /hpf (0-4); Urobilinogen,Urine Normal
--- NOTE | 2022-04-27 19:21 | Cat Scan Report ---
History: Chronic diarrhea, fell, syncope, hypertension, renal dialysis, diabetes TECHNIQUE: Patient was imaged without contrast in axial plane at 2.5 mm intervals from above the diaphragm through the symphysis pubis. Sagittal and coronal reformats were created. The radiation exposure was limited using dose reduction technology. FINDINGS: There is a 9 mm densely calcified granuloma in the posterior basal segment left lower lobe. There is a small pericardial effusion. The heart size is normal. No pleural effusion is present. Evaluation of the abdominal organs without contrast is somewhat limited. There is a solitary small calcified granuloma in the left lobe of the liver. The liver is otherwise normal in size and homogeneous. There are multiple calcified stones layering posteriorly in the neck and fundus of the gallbladder. They measure up to 1 cm. The wall is not thickened or inflamed. The bile ducts are nondilated. The spleen is normal in size and homogeneous. No abnormality is seen within the pancreas. The adrenals are normal and symmetric. There is mild to moderate atrophy of both kidneys. There are two small low-attenuation structures in the upper portion of the left kidney. Ultrasound done on 08/03/15 revealed cysts in this location. The kidneys are otherwise normal without evidence of a stone, mass or hydronephrosis. Moderate amount of atherosclerotic plaque is present in the abdomen and pelvis. The aorta is normal in caliber. There is a large amount of ingested material in the stomach. Small intestine is normal and noninflamed. The appendix is normal. Normal quantity of stool is present throughout the large bowel. The wall of the large intestine is not inflamed and there is no diverticulosis. No hernia or intra-abdominal mass are present. Prostate is mildly enlarged. Seminal vesicles are normal. Urinary bladder is unopacified but appears normal. Bone windows show no fracture. There is arthritis at several levels in the lumbar and lower thoracic spine. IMPRESSION: Atrophy of both kidneys consistent with chronic diabetes. Cholelithiasis without cholecystitis No acute abnormality in the abdomen or pelvis Interpreted and Authenticated by: Jason Gold 04/27/22
--- NOTE | 2022-04-27 20:01 | Internal Med History&Physical ---
HPI History of Present Illness Patient information: Note initiated : 04/27/22 at 7:49 pm Service Date, if different from initiated Date: [] Patient: Rito Fleming 76 y/o M admitted on for fall, syncope, low blood pressure. Chief Complaint: [fall] Chief complaint: fall History of present illness: Mr. Fleming is a 76 year old M Thursday, type 2 diabetes mellitus, essential hypertensions, BPH, presenting with fall. He has been receiving hemodialysis for the past month we are dialysis catheter on his right chest wall. Last dialysis was yesterday. Earlier this morning he had lightheadedness and he fell inside his bathroom where he spent the next 3 and half hours in the bathroom until he could crawl himself up and call ambulance to send to our ED for evaluation. CT of the head without contrast no acute abnormalities. He was showing orthostatic hypotension's. Labs Significant for leukocytosis with WBC 19.9, H&H 10.9 and 34.2, respectively. Chemistry significant for potassium level 3.0, serum creatinine level 6.6, procalcitonin level 19.4, and lactic acid 1.3. COVID and influenza screening negative. UA does not suggest the presence of urinary tract infections. A recent chest CT in March 2022 showing a large left upper lobe mass with mediastinal invasion. It was adjacent to the aortic arch. Chest x-ray today showing the same findings with no interval changes and no focal lung parenchymal infiltrate or metastases. CT of the abdomen pelvis without contrast today showing cholelithiasis without Lisa cystitis and no other acute abnormalities in the abdomen or pelvis. Admission request is called for weakness and leukocytosis and elevated procalcitonin level concerning for infections. Constitutional Constitutional: Absent chills, excessive sweating, fatigue, fever(s) or weakness EENT Eyes: Absent blurry vision, change in vision, loss of vision or other visual disturbances Ears: Absent decreased hearing or tinnitus Nose, mouth and throat: Absent abnormal hearing, dry mouth, headache(s), nasal congestion or sore throat Cardiovascular Cardiovascular: Absent chest pain, chest pain at rest, edema, irregular heart rhythm or palpatations Respiratory Respiratory: Absent cough, dyspnea or wheezing Gastrointestinal Gastrointestinal: Present diarrhea, nausea and vomiting; Absent abdominal pain or constipation Musculoskeletal Musculoskeletal: Absent back pain, deformity, limited range of motion, muscle cramps, muscle weakness or numbness Integumentary Integumentary: Absent lesions, rash or wounds Neurological Neurological: Absent focal weakness, headache(s) or numbness Psychiatric Psychiatric: Absent anxiety, depression or hallucinations PFSH PFSH All Active Problems (Updated 04/27/22 @ 20:06 by Luther Fields MD) Hypokalemia (Acute) Fall (Acute) Leukocytosis (Acute) Nocturia (Chronic) Hypertension (Chronic) Chronic kidney disease, stage 4 (severe) (Chronic) Diabetes mellitus (Chronic) Diabetic retinopathy (Chronic) Macular puckering (Chronic) Cellulitis (Chronic) Chronic sinusitis (Chronic) SOB (shortness of breath) (Chronic) Wheezing (Chronic) Acid reflux (Chronic) Urinary urgency (Chronic) Chronic stasis dermatitis (Chronic) Morbidly obese (Chronic) No significant past surgical history (Chronic) Hyperkalemia (Acute) Uncontrolled type 2 diabetes mellitus with stage 4 chronic kidney disease, with long-term current use of insulin (Chronic) 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) Hyperparathyroidism due to renal insufficiency (Chronic) Chronic kidney disease (CKD), stage IV (severe) (Chronic) Chronic diastolic CHF (congestive heart failure), NYHA class 2 (Chronic) Hypotension (Acute) CHF (congestive heart failure) (Acute) BPH (benign prostatic hyperplasia) (Acute) Essential hypertension (Chronic) Diabetes mellitus with chronic kidney disease, without long-term current use of insulin (Chronic) Acute neck pain (Acute) Acute neck pain (Acute) Viral syndrome (Acute) Acute anemia (Acute) Anemia due to stage 4 chronic kidney disease treated with darbepoetin (Acute) Iron deficiency (Acute) Mass of left lung (Chronic) TIA (transient ischemic attack) (Acute) Transient confusion (Acute) ANNA (acute kidney injury) (Acute) Acute renal failure superimposed on stage 5 chronic kidney disease, not on chronic dialysis (Acute) End-stage renal disease needing dialysis (Chronic) Anemia due to stage 5 chronic kidney disease treated with darbepoetin (Chronic) Anemia in ESRD (end-stage renal disease) (Chronic) Hypoglycemia (Acute) Hypoglycemia (Acute) Uncontrolled type 2 diabetes mellitus with ESRD (end-stage renal disease) (Acut e) Strain of sternocleidomastoid muscle (Acute) Pneumonia (Acute) Medical History Acid reflux Cellulitis Chronic diastolic CHF (congestive heart failure), NYHA class 2 Suspect HTN > valvular heart disease. 05/2021: Add diltiazem in place of amlodipine Chronic kidney disease (CKD), stage IV (severe) HTN, NSAIDs with nephrotic range proteinuria...suspect prior NSAIDS cause and doubt DM as HgA1c well controlled over the years. Since spring, there has been worsening of GFR to 14 cc/min but improv ed proteinuria Chronic kidney disease, stage 4 (severe) Most likely associated with diabetes mellitus type 2 with proteinuria present Chronic sinusitis Chronic stasis dermatitis Diabetes mellitus Diabetic nephropathy associated with type 2 diabetes mellitus Stable GFR and marked improvement in urine protein losses argues against DM nephropathy or marked improvement /therapeutic sucess with ACEi Diabetic retinopathy Hypertension Goal blood pressure is 130/80 He is not achieve that goal yet but is improved... Increase hydralazine to 100 mg 3 times a day on 11/13/2021 and continue lisinopril 20 mg a day and the diltiazem and carvedilol Macular puckering Morbidly obese Nocturia SOB (shortness of breath) Uncontrolled type 2 diabetes mellitus with stage 4 chronic kidney disease, with long-term current use of insulin Currently on 70/30 insulin as well as low-dose glipizide Urinary urgency Viral syndrome Wheezing Surgical History No significant past surgical history Social History (Updated 09/15/19 @ 19:21 by Vinnie Logan MD) smoking status: Former smoker alcohol intake frequency: does not drink substance use type: does not use MEDS/ALLERGIES Home Medications and Allergies Home Medications Medication Instructions Recorded Confirmed Type insulin glargine 100 unit/mL (3 10 unit (0.1 mL) subcut QPM DM #15 01/22/22 04/27/22 Rx mL) subcutaneous pen (Basaglar mL KwikPen U-100 Insulin) pen needle, diabetic 31 gauge x #100 ea 01/22/22 Rx 5/16" (Lite Touch Insulin Pen [place]) amlodipine 5 mg tablet 1 tab PO QDAY 04/27/22 04/27/22 History amoxicillin 500 mg-potassium 1 tab PO Q12H #14 tabs 04/27/22 Rx clavulanate 125 mg tablet (Augmentin) azithromycin 250 mg tablet See Rx Instructions PO DAILY 04/27/22 Rx infection #4 tabs carvedilol 3.125 mg tablet 1 tab PO BID 04/27/22 04/27/22 History famotidine 20 mg tablet 1 tab PO BID 04/27/22 04/27/22 History furosemide 20 mg tablet 1 tab PO BID 04/27/22 04/27/22 History pravastatin 10 mg tablet 1 tab PO QDAY 04/27/22 04/27/22 History tamsulosin 0.4 mg capsule 2 cap PO QDAY 04/27/22 04/27/22 History Allergies Allergy/AdvReac Type Severity Reaction Status Date / Time doxazosin AdvReac Mild Vomiting Verified 03/19/22 16:51 EXAM Constitutional Vitals: Temp Pulse Resp BP Pulse Ox O2 Del Method 37.1 C 66 13 131/63 97 04/27/22 16:55 04/27/22 19:46 04/27/22 19:46 04/27/22 19:31 04/27/22 19:46 04/27/22 11:46 General appearance: cooperative and no acute distress Head Head exam: Present atraumatic and normocephalic Eye Eye exam: Present EOMI and PERRL ENT ENT exam: Present mucous membranes moist, normal exam and normal external ear exam Neck Neck exam: Present normal inspection; Absent lymphadenopathy, tenderness or thyromegaly Respiratory Respiratory exam: Absent accessory muscle use, respiratory distress or wheezes Cardiovascular Cardiovascular exam: Present normal rate and rhythm; Absent JVD Additional comments: Dialysis catheter in the right chest wall GI/Abdominal GI/Abdominal exam: Present normal bowel sounds and soft; Absent organomegaly or tenderness Rectal Rectal exam: Present deferred Extremities Exam Extremities exam: Present full ROM, normal capillary refill and normal inspection; Absent tenderness Neurological Exam Neurological exam: Present alert, CN II-XII intact and oriented X3; Absent motor sensory deficit Psychiatric Psychiatric exam: Present normal affect and normal mood; Absent anxious or depressed Skin Skin exam: Present dry and intact DATA Data Completed and Pending Labs: Labs from last 24 hours 04/27/22 04/27/22 04/27/22 18:00 12:45 12:01 WBC RBC Hgb Hct POC Hct MCV MCH MCHC RDW Plt Count MPV Immature Gran % (Auto) Neut % (Auto) Lymph % (Auto) Drew % (Auto) Eos % (Auto) Baso % (Auto) Lymph # (Auto) Drew # (Auto) Eos # (Auto) Baso # (Auto) Immature Gran # Absolute Neutrophils POC VBG pH POC VBG pCO2 at Temp POC VBG pO2 POC VBG HCO3 POC VBG Total CO2 POC Venous O2 Sat POC VBG Base Excess VBG Lactic Acid POC Sodium POC Potassium POC Chloride POC Total CO2 POC BUN POC Creatinine POC Glucose POC WB Ioniz Calcium Magnesium 1.6 Procalcitonin 19.40 H Urine Color Yellow Urine Appearance Clear Urine pH 6.0 Ur Specific [place] 1.015 Urine Protein 100 A Urine Glucose (UA) Negative Urine Ketones Trace A Urine Occult Blood Small A Urine Nitrate Negative Urine Bilirubin Negative Urine Urobilinogen Normal Ur Leukocyte Esterase Negative Urine RBC 1 Urine WBC 1 Ur Squamous Epith Cells 2 Ur Transition Epith Cell < 1 Amorphous Crystals Few A Urine Bacteria None Urine Mucus Few A Ur Culture Indicated? No POC Troponin I 04/27/22 04/27/22 04/27/22 12:01 11:59 11:56 WBC 19.9 H RBC 3.73 L Hgb 10.9 L Hct 34.2 L POC Hct 35.0 L MCV 91.7 MCH 29.2 MCHC 31.9 RDW 14.6 H Plt Count 267 MPV 10.0 Immature Gran % (Auto) 0.6 H Neut % (Auto) 90.8 H Lymph % (Auto) 2.7 L Drew % (Auto) 5.3 Eos % (Auto) 0.4 Baso % (Auto) 0.2 Lymph # (Auto) 0.54 L Drew # (Auto) 1.05 H Eos # (Auto) 0.07 Baso # (Auto) 0.04 Immature Gran # 0.12 H Absolute Neutrophils 18.07 H POC VBG pH POC VBG pCO2 at Temp POC VBG pO2 POC VBG HCO3 POC VBG Total CO2 POC Venous O2 Sat POC VBG Base Excess VBG Lactic Acid POC Sodium 135 POC Potassium 3.0 L POC Chloride 98 POC Total CO2 26.0 POC BUN 70 H POC Creatinine 6.6 H* POC Glucose 125 H POC WB Ioniz Calcium 1.01 L Magnesium Procalcitonin Urine Color Urine Appearance Urine pH Ur Specific [place] Urine Protein Urine Glucose (UA) Urine Ketones Urine Occult Blood Urine Nitrate Urine Bilirubin Urine Urobilinogen Ur Leukocyte Esterase Urine RBC Urine WBC Ur Squamous Epith Cells Ur Transition Epith Cell Amorphous Crystals Urine Bacteria Urine Mucus Ur Culture Indicated? POC Troponin I 0.04 04/27/22 11:56 WBC RBC Hgb Hct POC Hct MCV MCH MCHC RDW Plt Count MPV Immature Gran % (Auto) Neut % (Auto) Lymph % (Auto) Drew % (Auto) Eos % (Auto) Baso % (Auto) Lymph # (Auto) Drew # (Auto) Eos # (Auto) Baso # (Auto) Immature Gran # Absolute Neutrophils POC VBG pH 7.42 POC VBG pCO2 at Temp 39.1 L POC VBG pO2 33 POC VBG HCO3 25.4 POC VBG Total CO2 27.0 POC Venous O2 Sat 64.0 POC VBG Base Excess 1.0 VBG Lactic Acid 1.3 POC Sodium POC Potassium POC Chloride POC Total CO2 POC BUN POC Creatinine POC Glucose POC WB Ioniz Calcium Magnesium Procalcitonin Urine Color Urine Appearance Urine pH Ur Specific [place] Urine Protein Urine Glucose (UA) Urine Ketones Urine Occult Blood Urine Nitrate Urine Bilirubin Urine Urobilinogen Ur Leukocyte Esterase Urine RBC Urine WBC Ur Squamous Epith Cells Ur Transition Epith Cell Amorphous Crystals Urine Bacteria Urine Mucus Ur Culture Indicated? POC Troponin I A/P Assessment and plan (1) Leukocytosis: Status: Acute (2) Essential hypertension: Status: Chronic (3) BPH (benign prostatic hyperplasia): Status: Acute (4) Mass of left lung: Status: Chronic Comment: See CT 12/2021 Needs tissue Dx (5) Anemia in ESRD (end-stage renal disease): Status: Chronic (6) Uncontrolled type 2 diabetes mellitus with ESRD (end-stage renal disease): Status: Acute (7) Fall: Status: Acute (8) Hypokalemia: Status: Acute Narrative A/P Narrative: Assessment and Plans: 1. Leukocytosis: DDx: bacterial infection, malignancy, trauma stress Observation med surg telemetry Serial lactic acid Blood culture Urine culture cbc w/ auto diff in the morning to trend WBC Gentle IV fluid with NS@75cc/hr Hold oral antihypertensives, and give Midodrine instead Vancomycin Zosyn 2. Fall: Likely secondary to general weakness/physical deconditioning from comorbidities, treat accordingly, see above and below Physical therapy evaluation and treatment 3. Left lung mass: Hold body CT w/o contrast so far do not see any distant metastasis Follow up with outpatient oncology, pending 4. T2DM with ESRD on hemodialysis TThSa: Consult Dr. Post nephrology for dialysis needs HgA1c Hold any oral hypoglycemics Lantus 10 unit qPM Lispro SSI AC HS Accu Check AC HS Hypoglycemia protocol Diabetic/renal diet 5. Hypokalemia: Potassium chloride oral replacement CMP in the morning to trend serum potassium level Also check serum magnesium level and replace if needed 6. Benign prostatic hypertrophy: Continue Flomax 7. Essential hypertension: Hold oral antihypertensives, and give Midodrine instead given borderline hypotension GI ppx: Pepcid DVT ppx: Heparin Code status: Full Prognosis: guarded Disposition: observation med surg tele; PT Time Spent With Patient Time: Total time spent is greater than 50% in coordination of care (as documented) at patient's floor/unit and/or counseling patient: Initial: Total time with patient: 55 - 74 minutes
[2022-04-27] MEDS ORDERED: VANCOMYCIN PER PHARMACY IV ONE (21:11)
[2022-04-27] MEDS ORDERED: traZODone HCL 50 MG TABLET PO PRN (21:11)
[2022-04-27] MEDS ORDERED: DEXTROSE 31 GM ORAL.SUSP PO PRN (21:11)
[2022-04-27] MEDS ORDERED: DEXTROSE 50% 50 ML VIAL IV PRN (21:11)
[2022-04-27] MEDS ORDERED: KETOROLAC 30 MG/ML VIAL IV PRN (21:11)
[2022-04-27] MEDS ORDERED: ONDANSETRON 4 MG/2 ML VIAL IV PRN (21:11)
[2022-04-27] MEDS ORDERED: IPRATROPIUM/ALBUTEROL 3 ML AMPUL.NEB NEB PRN (21:11)
[2022-04-27] MEDS: 0.9 % SODIUM CHLORIDE 1,000 ML IV SCH (21:20)
[2022-04-27] MEDS ORDERED: PIPERACILLIN SODIUM/TAZOBACTAM 2.25 GM in DEXTROSE 5% IN WATER 50 ML IV SCH (22:00)
[2022-04-27] MEDS ORDERED: INSULIN GLARGINE, HUMAN 1 UNIT/0.01 ML SQ ONE (22:44)
[2022-04-27] MEDS ORDERED: VANCOMYCIN 1,500 MG in 0.9 % SODIUM CHLORIDE 500 ML IV ONE (23:00)
[2022-04-27] MEDS: FAMOTIDINE 20 MG TABLET PO SCH (23:09)
[2022-04-27] MEDS: DOCUSATE SODIUM 100 MG CAPSULE PO SCH (23:09)
[2022-04-27] MEDS: SENNOSIDES 1 TABLET PO SCH (23:09)
[2022-04-27] MEDS: HEPARIN 5,000 UNIT/ML VIAL SQ SCH (23:09)
[2022-04-27] MEDS: INSULIN LISPRO 1 UNIT/0.01 ML UNIT SQ SCH (23:11)
[2022-04-27] MEDS: 0.9 % SODIUM CHLORIDE 10 ML SYRINGE IV SCH (23:12)
[2022-04-27] MEDS: PIPERACILLIN SODIUM/TAZOBACTAM 2.25 GM in DEXTROSE 5% IN WATER 50 ML IV SCH (23:13)
[2022-04-28] MEDS: 0.9 % SODIUM CHLORIDE 10 ML SYRINGE IV SCH ×3 (05:12→21:54)
[2022-04-28] MEDS: PIPERACILLIN SODIUM/TAZOBACTAM 2.25 GM in DEXTROSE 5% IN WATER 50 ML IV SCH ×3 (05:12→21:40)
--- NOTE | 2022-04-28 06:04 | Nephrology Consult Note ---
HPI Date of Consult Consult Date: 04/28/22 Requesting physician: Luther Fields Primary Care Provider: RUT Campos Consult Narrative Patient Information: Note initiated : 04/28/22 at 6:02 am Patient: Rito Fleming 76 y/o M admitted on 04/27/22 for fall, syncope, low blood pressure. Chief Complaint: Weakness Rito Fleming is a 76-year-old male with end stage renal disease on chronic hemodialysis, chronic anemia due to ESRD, HFpEF, moderate aortic stenosis, hypertension, diabetes mellitus type 2 admitted on 04/27/22. He was presented to ED for lightheadedness. He fell in his bathroom where he spent the next 3 and half hours until he could crawl himself up and call an ambulance. In ED, he had orthostatic hypotension. Labs were significant for leukocytosis with WBC 19.9, procalcitonin level 19.4, and lactic acid 1.3. COVID and influenza screen negative. Nephrology consultation was requested for end stage renal disease. Chief complaint: Weakness Reason for consult: End stage renal disease on chronic hemodialysis cc:: CC: Luther Fields MD Constitutional Constitutional: Present fatigue and weakness EENT Nose, mouth and throat: Absent nasal congestion or sore throat Cardiovascular Cardiovascular: Absent chest pain or palpatations Respiratory Respiratory: Absent hemoptysis or wheezing Gastrointestinal Gastrointestinal: Absent nausea or vomiting Musculoskeletal Musculoskeletal: Absent joint swelling Integumentary Integumentary: Absent rash or wounds Neurological Neurological: Present weakness; Absent confusion Psychiatric Psychiatric: Absent anxiety or panic attacks Hematologic/Lymphatic Hematologic/Lymphatic: Absent easy bleeding or easy bruising Allergic/Immunologic Allergic/Immunologic: Absent tongue swelling or uticaria PFSH PFSH All Active Problems (Updated 04/28/22 @ 06:02 by Jaun Post MD) ESRD on hemodialysis (Chronic) Hypokalemia (Acute) Fall (Acute) Leukocytosis (Acute) Nocturia (Chronic) Hypertension (Chronic) Chronic kidney disease, stage 4 (severe) (Chronic) Diabetes mellitus (Chronic) Diabetic retinopathy (Chronic) Macular puckering (Chronic) Cellulitis (Chronic) Chronic sinusitis (Chronic) SOB (shortness of breath) (Chronic) Wheezing (Chronic) Acid reflux (Chronic) Urinary urgency (Chronic) Chronic stasis dermatitis (Chronic) Morbidly obese (Chronic) No significant past surgical history (Chronic) Hyperkalemia (Acute) Uncontrolled type 2 diabetes mellitus with stage 4 chronic kidney disease, with long-term current use of insulin (Chronic) 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) Hyperparathyroidism due to renal insufficiency (Chronic) Chronic kidney disease (CKD), stage IV (severe) (Chronic) Chronic diastolic CHF (congestive heart failure), NYHA class 2 (Chronic) Hypotension (Acute) CHF (congestive heart failure) (Acute) BPH (benign prostatic hyperplasia) (Acute) Essential hypertension (Chronic) Diabetes mellitus with chronic kidney disease, without long-term current use of insulin (Chronic) Acute neck pain (Acute) Acute neck pain (Acute) Viral syndrome (Acute) Acute anemia (Acute) Anemia due to stage 4 chronic kidney disease treated with darbepoetin (Acute) Iron deficiency (Acute) Mass of left lung (Chronic) TIA (transient ischemic attack) (Acute) Transient confusion (Acute) ANNA (acute kidney injury) (Acute) Acute renal failure superimposed on stage 5 chronic kidney disease, not on chronic dialysis (Acute) End-stage renal disease needing dialysis (Chronic) Anemia due to stage 5 chronic kidney disease treated with darbepoetin (Chronic) Anemia in ESRD (end-stage renal disease) (Chronic) Hypoglycemia (Acute) Hypoglycemia (Acute) Uncontrolled type 2 diabetes mellitus with ESRD (end-stage renal disease) (Acute) Strain of sternocleidomastoid muscle (Acute) Pneumonia (Acute) Medical History Acid reflux Cellulitis Chronic diastolic CHF (congestive heart failure), NYHA class 2 Suspect HTN > valvular heart disease. 05/2021: Add diltiazem in place of amlodipine Chronic kidney disease (CKD), stage IV (severe) HTN, NSAIDs with nephrotic range proteinuria...suspect prior NSAIDS cause and doubt DM as HgA1c well controlled over the years. Since spring, there has been worsening of GFR to 14 cc/min but improved proteinuria Chronic kidney disease, stage 4 (severe) Most likely associated with diabetes mellitus type 2 with proteinuria present Chronic sinusitis Chronic stasis dermatitis Diabetes mellitus Diabetic nephropathy associated with type 2 diabetes mellitus Stable GFR and marked improvement in urine protein losses argues against DM nephropathy or marked improvement /therapeutic sucess with ACEi Diabetic retinopathy Hypertension Goal blood pressure is 130/80 He is not achieve that goal yet but is improved... Increase hydralazine to 100 mg 3 times a day on 11/13/2021 and continue lisinopril 20 mg a day and the diltiazem and carvedilol Macular puckering Morbidly obese Nocturia SOB (shortness of breath) Uncontrolled type 2 diabetes mellitus with stage 4 chronic kidney disease, with long-term current use of insulin Currently on 70/30 insulin as well as low-dose glipizide Urinary urgency Viral syndrome Wheezing Surgical History No significant past surgical history Social History (Updated 09/15/19 @ 19:21 by Vinnie Logan MD) smoking status: Former smoker alcohol intake frequency: does not drink substance use type: does not use MEDS/ALLERGIES Home Medications and Allergies Home Medications Medication Instructions Recorded Confirmed Type insulin glargine 100 unit/mL (3 10 unit (0.1 mL) subcut QPM DM #15 01/22/22 04/27/22 Rx mL) subcutaneous pen (Basaglar mL KwikPen U-100 Insulin) pen needle, diabetic 31 gauge x #100 ea 01/22/22 Rx 5/16" (Lite Touch Insulin Pen [place]) amlodipine 5 mg tablet 1 tab PO QDAY 04/27/22 04/27/22 History amoxicillin 500 mg-potassium 1 tab PO Q12H #14 tabs 04/27/22 Rx clavulanate 125 mg tablet (Augmentin) azithromycin 250 mg tablet See Rx Instructions PO DAILY 04/27/22 Rx infection #4 tabs carvedilol 3.125 mg tablet 1 tab PO BID 04/27/22 04/27/22 History famotidine 20 mg tablet 1 tab PO BID 04/27/22 04/27/22 History furosemide 20 mg tablet 1 tab PO BID 04/27/22 04/27/22 History pravastatin 10 mg tablet 1 tab PO QDAY 04/27/22 04/27/22 History tamsulosin 0.4 mg capsule 2 cap PO QDAY 04/27/22 04/27/22 History Allergies Allergy/AdvReac Type Severity Reaction Status Date / Time doxazosin AdvReac Mild Vomiting Verified 04/27/22 22:12 Physical Examination Vital Signs Vital signs: Temp Pulse Resp BP Pulse Ox O2 Del Method O2 Flow Rate 97.9 F 66 20 133/53 97 0 04/28/22 03:58 04/28/22 03:58 04/28/22 03:58 04/28/22 03:58 04/28/22 03:58 04/28/22 03:58 04/28/22 03:58 General Appearance General appearance: chronically ill and fatigue EENT EENT: mucous membranes moist Respiratory Respiratory: clear Cardiovascular Cardiology: no edema, regular rate and regular rhythm Gastrointestinal Gastrointestinal: no tenderness Integumentary Integumentary: warm and dry Neurologic Neurologic: alert and oriented x3 Musculoskeletal Musculoskeletal: no deformities Psychiatric Psychiatric: mood/affect appropriate and cooperative Results Lab Results Result Diagrams: 04/28/22 05:48 04/28/22 05:47 Lab results: Most recent lab results Magnesium 1.8 mg/dL (1.6-2.5) 04/27/22 21:31 A/P Assessment and plan (1) ESRD on hemodialysis: Assessment and plan: Rito Fleming is a 76-year-old male with end stage renal disease on hemodialysis, chronic anemia due to ESRD, HFpEF, moderate aortic stenosis, hypertension, diabetes mellitus type 2 admitted on 04/27/22. He was presented to ED for lightheadedness. He fell in his bathroom where he spent the next 3 and half hours until he could crawl himself up and call an ambulance. In ED, he had orthostatic hypotension. Labs were significant for leukocytosis with WBC 19.9, procalcitonin level 19.4, and lactic acid 1.3. COVID and influenza screen negative. Nephrology consultation was requested for end stage renal disease. End stage renal disease on chronic hemodialysis on TTS at [facility]. Last HD on 04/26/22. Tunneled HD catheter. Chronic anemia due to ESRD. Orthostatic hypotension. Suspected infection with leukocytosis and procalcitonin elevation with Tmax 100.1 on 04/27/22. Liver enzyme elevation, new, mild. 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 Pulmonary arterial hypertension by CT on 03/17/22. Workup: CT Abdomen and Pelvis on 04/27/22: Atrophy of both kidneys consistent with chronic diabetes. Cholelithiasis without cholecystitis. No acute abnormality in the abdomen or pelvis. CXR on 04/27/22: Stable tumor adjacent to the aortic arch and no acute abnormality. Blood culture on 04/27/22: Pending. Recommendations/Plan: Toradol may cause acute kidney injury of residual kidney function. Statins may need to be held for liver enzyme elevation. Infectious disease consultation recommended. Hemodialysis on TTS schedule. Status: Chronic Time Spent With Patient Time: Total time spent is greater than 50% in coordination of care (as documented) at patient's floor/unit and/or counseling patient:
[2022-04-28 06:39] LABS: Basophils # (Auto) 0.04 K/mcL (0.00-0.30); Basophils % (Auto) 0.3 % (0.0-2.0); Eosinophils # (Auto) 0.08 K/mcL (0.00-0.70); Eosinophils % (Auto) 0.6 % (0.0-7.0); Hematocrit 32.6 % (40.1-51.0); Hemoglobin 10.1 g/dL (13.7-17.5); Lymphocytes # (Auto) 0.84 K/mcL (1.50-4.80); Lymphocytes % (Auto) 6.7 % (15.5-49.0); Mean Cell Volume 93.7 fL (80.0-100.0); Monocytes # (Auto) 1.03 K/mcL (0.10-0.90); Monocytes % (Auto) 8.2 % (1.0-12.0); Neutrophils % (Auto) 83.7 % (38.0-78.0); Platelet Count 255 K/mcL (140-440); RBC 3.48 M/mcL (4.63-6.08); Red Cell Distribution Width 14.9 % (11.5-14.5); WBC 12.6 K/mcL (4.5-11.0)
--- NOTE | 2022-04-28 07:06 | EKG ---
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 Measurements Intervals [place] Rate: 88 P: 97 [place]: 170 QRS: 0 QRSD: 161 T: 39 QT: 393 QTc: 475 Interpretive Statements Sinus rhythm Right bundle branch block Electronically Signed On 04-28-2022 7:06:17 PST by Jimmy Gold M.D. /[id number]
--- NOTE | 2022-04-28 07:08 | EKG ---
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 Measurements Intervals [place] Rate: 67 P: 68 [place]: 207 QRS: 63 QRSD: 153 T: 50 QT: 428 QTc: 452 Interpretive Statements Sinus rhythm Right bundle branch block Electronically Signed On 04-28-2022 7:08:15 PST by Jimmy Gold M.D. /[email or web address]/[id number]
[2022-04-28 07:31] LABS: ALT/SGPT 105 U/L (<40); AST/SGOT 123 U/L (<40); Albumin 2.8 gm/dL (3.2-5.2); Albumin/Globulin Ratio 0.8 (1.0-2.3); Alkaline Phosphatase 462 U/L (39-117); Bilirubin,Total 0.5 mg/dL (0.1-1.0); Blood Urea Nitrogen 81 mg/dL (8-23); Calcium 9.8 mg/dL (8.6-10.4); Carbon Dioxide 23 mmol/L (22-30); Chloride 97 mmol/L (96-108); Globulin 3.7 gm/dL (2.2-3.7); Glomerular Filtration Rate 9; Glucose 115 mg/dL (70-105)
[2022-04-28 07:46] LABS: Estimated Average Glucose(eAG) 140 mg/dL; Hemoglobin A1C 6.5 % Hgb (4.0-6.0)
[2022-04-28] MEDS: INSULIN LISPRO 1 UNIT/0.01 ML UNIT SQ SCH ×4 (07:49→22:03)
[2022-04-28] MEDS: TAMSULOSIN 0.4 MG CAPSULE PO SCH (08:16)
[2022-04-28] MEDS: MIDODRINE 5 MG TABLET PO SCH ×3 (08:16→17:00)
[2022-04-28] MEDS: DOCUSATE SODIUM 100 MG CAPSULE PO SCH ×2 (08:16→21:53)
[2022-04-28] MEDS: HEPARIN 5,000 UNIT/ML VIAL SQ SCH ×2 (08:16→21:54)
[2022-04-28] MEDS: FAMOTIDINE 20 MG TABLET PO SCH ×2 (08:16→21:54)
[2022-04-28] MEDS ORDERED: VANCOMYCIN PER PHARMACY IV SCH (08:30)
[2022-04-28] MEDS: ACETAMINOPHEN 325 MG TABLET PO PRN ×2 (11:55→21:55)
[2022-04-28] MEDS: 0.9 % SODIUM CHLORIDE 1,000 ML IV SCH (11:56)
--- NOTE | 2022-04-28 14:49 | Internal Med Progress Note ---
SUBJECTIVE Subjective Patient information: Note initiated : 04/28/22 at 2:44 pm Service Date, if different from initiated Date: [] Patient: Rito Fleming a 76 y/o M admitted on 04/27/22 for fall, syncope, low blood pressure. Chief Complaint: [] Interval history: Mr. Fleming is a 76 year old M Thursday, type 2 diabetes mellitus, essential hypertensions, BPH, presenting with fall. He has been receiving hemodialysis for the past month we are dialysis catheter on his right chest wall. Last dialysis was yesterday. Earlier this morning he had lightheadedness and he fell inside his bathroom where he spent the next 3 and half hours in the bathroom until he could crawl himself up and call ambulance to send to our ED for evaluation. CT of the head without contrast no acute abnormalities. He was showing orthostatic hypotension's. Labs Significant for leukocytosis with WBC 19.9, H&H 10.9 and 34.2, respectively. Chemistry significant for potassium level 3.0, serum creatinine level 6.6, procalcitonin level 19.4, and lactic acid 1.3. COVID and influenza screening negative. UA does not suggest the presence of urinary tract infections. A recent chest CT in March 2022 showing a large left upper lobe mass with medi astinal invasion. It was adjacent to the aortic arch. Chest x-ray today showing the same findings with no interval changes and no focal lung parenchymal infiltrate or metastases. CT of the abdomen pelvis without contrast today showing cholelithiasis without Lisa cystitis and no other acute abnormalities in the abdomen or pelvis. Admission request is called for weakness and leukocytosis and elevated procalcitonin level concerning for infections. 04/28: Hypokalemia resolved, repeat serum potassium level 4.8. WBC also down trended from 19.9 to 12.6. Patient has been afebrile overnight. Blood and urine cultures no growth to date. Latest set of blood pressure 108/52mmHg. body strength has i mproved. He is complaining of mild to moderate left jaw/inner ear pain. He denies any subjective fever, chills, or diaphoresis. He denies any lower back pain. He denies any nausea vomiting or diarrhea. Continue to work with physical therapy. Continue empiric antibiotics with vancomycin and Zosyn. Continue gentle IV fluid with normal saline at 75 cc/h. Continue to hold antihypertensives and will continue with midodrine instead. Constitutional Vitals: Vital Signs Temp Pulse Resp BP Pulse Ox O2 Del Method O2 Flow Rate 36.8 C 54 L 16 108/52 96 0 04/28/22 12:00 04/28/22 12:00 04/28/22 12:00 04/28/22 12:00 04/28/22 12:00 04/28/22 12:00 04/28/22 08:00 Period Temp Pulse Resp BP Sys/Nielsen Pulse Ox O2 Del Method O2 Flow Rate Last 24 Hr 36.1 C-37.8 C 54-88 10-24 62-137/30-67 94-99 Room Air-Room Air 0-0 Intake and Output 04/28/22 04/28/22 04/28/22 03:59 11:59 19:59 Intake Total 1100 1050 Output Total 450 Balance 650 1050 Weight 80.377 kg Intake & Output: Intake & Output 04/28/22 04/28/22 04/28/22 03:59 11:59 19:59 Intake Total 1100 1050 Output Total 450 Balance 650 1050 Weight 80.377 kg Intake: IV 550 1050 Sodium Chloride 0.9% 1,000 ml @ 1000 75 mls/hr IV .[id number] [facility] Rx#: [id number] Zosyn 2.25 gm In Dextrose 5% in 50 50 Water 50 ml @ 100 mls/hr IV Q8H [facility] Rx#:[id number] Vancomycin 1,500 mg In Sodium 500 Chloride 0.9% 500 ml @ 333.3 mls/hr IV ONCE ONE Rx#: [id number] Oral 550 Output: Void Amount 450 Other: Urine Appearance Clear Urine Color Dark Yellow Urine Odor Normal General appearance: average body habitus, cooperative and no acute distress Head Head exam: Present atraumatic and normal inspection Eye Eye exam: Present normal appearance ENT ENT exam: Present mucous membranes moist, normal exam and normal external ear exam Neck Neck exam: Present normal inspection Respiratory Respiratory exam: Present normal respiratory exam Cardiovascular Cardiovascular exam: Present normal rate and rhythm Additional comments: Dialysis catheter right chest wall GI/Abdominal GI/Abdominal exam: Present normal bowel sounds Back Exam Back exam: Present normal inspection Neurological Exam Neurological exam: Present alert and oriented X3 Skin Skin exam: Present intact and warm OBJ DATA Labs CBC & Chem 7: 04/28/22 05:48 04/28/22 05:47 Labs: Abnormal Lab Results 04/28/22 04/28/22 04/27/22 05:48 05:47 18:00 WBC 12.6 H RBC 3.48 L Hgb 10.1 L Hct 32.6 L POC Hct RDW 14.9 H Immature Gran % (Auto) Neut % (Auto) 83.7 H Lymph % (Auto) 6.7 L Lymph # (Auto) 0.84 L [place] # (Auto) 1.03 H Immature Gran # 0.06 H Absolute Neutrophils 10.55 H POC VBG pCO2 at Temp Sodium 132 L POC Potassium POC BUN BUN 81 H Creatinine 5.8 H* POC Creatinine Glucose 115 H POC Glucose Hemoglobin A1c 6.5 H POC WB Ioniz Calcium AST 123 H ALT 105 H Alkaline Phosphatase 462 H Albumin 2.8 L Albumin/Globulin Ratio 0.8 L Procalcitonin Urine Protein 100 A Urine Ketones Trace A Urine Occult Blood Small A Amorphous Crystals Few A Urine Mucus Few A 04/27/22 04/27/22 04/27/22 12:45 12:01 11:59 WBC 19.9 H RBC 3.73 L Hgb 10.9 L Hct 34.2 L POC Hct 35.0 L RDW 14.6 H Immature Gran % (Auto) 0.6 H Neut % (Auto) 90.8 H Lymph % (Auto) 2.7 L Lymph # (Auto) 0.54 L [place] # (Auto) 1.05 H Immature Gran # 0.12 H Absolute Neutrophils 18.07 H POC VBG pCO2 at Temp Sodium POC Potassium 3.0 L POC BUN 70 H BUN Creatinine POC Creatinine 6.6 H* Glucose POC Glucose 125 H Hemoglobin A1c POC WB Ioniz Calcium 1.01 L AST ALT Alkaline Phosphatase Albumin Albumin/Globulin Ratio Procalcitonin 19.40 H Urine Protein Urine Ketones Urine Occult Blood Amorphous Crystals Urine Mucus 04/27/22 11:56 WBC RBC Hgb Hct POC Hct RDW Immature Gran % (Auto) Neut % (Auto) Lymph % (Auto) Lymph # (Auto) [place] # (Auto) Immature Gran # Absolute Neutrophils POC VBG pCO2 at Temp 39.1 L Sodium POC Potassium POC BUN BUN Creatinine POC Creatinine Glucose POC Glucose Hemoglobin A1c POC WB Ioniz Calcium AST ALT Alkaline Phosphatase Albumin Albumin/Globulin Ratio Procalcitonin Urine Protein Urine Ketones Urine Occult Blood Amorphous Crystals Urine Mucus Meds: Medications Acetaminophen (Acetaminophen 325 Mg Tablet) 650 mg PO Q6HP PRN; Protocol PRN Reason: Per Pain Protocol/Fever > 101 Last Admin: 04/28/22 11:55 Dose: 650 mg Albuterol/Ipratropium (Ipratropium/Albuterol 3 Ml Ampul.Neb) 3 ml NEB Q4HRT PRN PRN Reason: Wheezing Dextrose (Dextrose 50% 50 Ml Vial) 0 ml IV UD PRN PRN Reason: Per Sliding Scale Diagnostic Test (Pha) (Accu-Chek 1 Each Strip) 1 each FS ACHS [facility] Last Admin: 04/28/22 11:56 Dose: 1 each Docusate Sodium (Docusate Sodium 100 Mg Capsule) 100 mg PO BID [facility] Last Admin: 04/28/22 08:16 Dose: 100 mg Famotidine (Famotidine 20 Mg Tablet) 20 mg PO BID [facility] Last Admin: 04/28/22 08:16 Dose: 20 mg Glucose (Dextrose 31 Gm Oral.Susp) 15 gm PO PRN PRN PRN Reason: Hypoglycemia Heparin Sodium (Porcine) (Heparin 5,000 Unit/Ml Vial) 5,000 unit SQ Q12 [facility] Last Admin: 04/28/22 08:16 Dose: 5,000 unit Sodium Chloride (Sodium Chloride 0.9%) 1,000 mls @ 75 mls/hr IV .[id number] [facility] Last Admin: 04/28/22 11:56 Dose: 75 mls/hr Piperacillin Sod/Tazobactam (Sod 2.25 gm/ Dextrose) 50 mls @ 100 mls/hr IV Q8H [facility] Last Admin: 04/28/22 14:22 Dose: 100 mls/hr Insulin Glargine (Insulin Glargine, Human 1 Unit/0.01 Ml) 10 unit SQ [facility] Insulin Human Lispro (Insulin Lispro 1 Unit/0.01 Ml Unit) 0 unit SQ [facility]; Protocol Last Admin: 04/28/22 11:56 Dose: Not Given Ketorolac Tromethamine (Ketorolac 30 Mg/Ml Vial) 30 mg IV Q6HP PRN; Protocol PRN Reason: Per Pain Protocol Stop: 04/29/22 19:46 Midodrine (Midodrine 5 Mg Tablet) 10 mg PO TID@0800,1200,1700 [facility] Last Admin: 04/28/22 11:54 Dose: 10 mg Ondansetron HCl (Ondansetron 4 Mg/2 Ml Vial) 4 mg IV Q6HP PRN PRN Reason: Nausea And Vomiting Senna (Sennosides 1 Tablet) 2 tab PO [facility] Last Admin: 04/27/22 23:09 Dose: Not Given Simvastatin (Simvastatin 10 Mg Tablet) 5 mg PO [facility] Sodium Chloride (0.9 % Sodium Chloride 10 Ml Syringe) 10 ml IV Q8 [facility] Last Admin: 04/28/22 14:23 Dose: 10 ml Tamsulosin HCl (Tamsulosin 0.4 Mg Capsule) 0.8 mg PO QDAY [facility] Last Admin: 04/28/22 08:16 Dose: 0.8 mg Trazodone HCl (Trazodone Hcl 50 Mg Tablet) 25 mg PO HSP PRN PRN Reason: Insomnia Vancomycin HCl (Vancomycin Per Pharmacy) 1 order IV UD [facility]; Protocol A/P Assessment and plan (1) Leukocytosis: Status: Acute (2) Essential hypertension: Status: Chronic (3) BPH (benign prostatic hyperplasia): Status: Acute (4) Mass of left lung: Status: Chronic Comment: See CT 12/2021 Needs tissue Dx (5) Anemia in ESRD (end-stage renal disease): Status: Chronic (6) Uncontrolled type 2 diabetes mellitus with ESRD (end-stage renal disease): Status: Acute (7) Fall: Status: Acute (8) Hypokalemia: Status: Acute Narrative A/P Narrative: Assessment and Plans: 1. Leukocytosis: DDx: bacterial infection, malignancy, trauma stress Observation med surg telemetry Serial lactic acid 1.3 Blood culture, no growth to date Urine culture, no growth to date cbc w/ auto diff in the morning to trend WBC Gentle IV fluid with NS@75cc/hr Hold oral antihypertensives, and give Midodrine instead Vancomycin Zosyn 2. Fall: Likely secondary to general weakness/physical deconditioning from comorbidities, treat accordingly, see above and below Physical therapy evaluation and treatment 3. Left lung mass: Hold body CT w/o contrast so far do not see any distant metastasis Follow up with outpatient oncology, pending 4. T2DM with ESRD on hemodialysis TThSa: Consult Dr. Orgul nephrology for dialysis needs HgA1c 6.4 Hold any oral hypoglycemics Lantus 10 unit qPM Lispro SSI AC HS Accu Check AC HS Hypoglycemia protocol Diabetic/renal diet 5. Hypokalemia: RESOLVED Potassium chloride oral replacement CMP in the morning to trend serum potassium level Also check serum magnesium level and replace if needed 6. Benign prostatic hypertrophy: Continue Flomax 7. Essential hypertension: Hold oral antihypertensives, and give Midodrine instead given borderline hypotension GI ppx: Pepcid DVT ppx: Heparin Code status: Full Prognosis: Stable Disposition: observation med surg tele; PT Time Spent With Patient Time: Total time spent is greater than 50% in coordination of care (as documented) at patient's floor/unit and/or counseling patient: Subsequent: Total time with patient: 35 - 49 minutes QUALITY VTE Deep Vein Thrombosis/Pulmonary Embolism Present on Admission: Yes
--- NOTE | 2022-04-28 16:43 | Infectious Disease Consult ---
Telemedicine Intake Start Time: 15:55 (PST) End Time: 16:35 (PST) Consent for assessment and treatment to occur via virtual technology obtained from: Patient Location of Provider: Home Patient location: Intensive Care Unit HPI Date of Consult Consult Date: 04/28/22 Requesting physician: Luther Fields Primary Care Provider: RUT Campos Consult Narrative Patient Information: Note initiated : 04/28/22 at 4:34 pm Service Date, if different from initiated Date: [] Patient: Rito Fleming 76 y/o M admitted on 04/27/22 for fall, syncope, low blood pressure. Chief Complaint: Elevated white blood cell count Reason for consult: Elevated white blood cell count cc:: This is a case of a 76-year-old male pmhx of HTN, DM, ESRD on HD via Rt chest wa ll catheter who was admitted to [facility] after an episode of lightheadness and falling at home late on 04/26/22 after coming home from his HD session. Patient lives by himself at home and refers that he felt chills associated with 1 episode of vomiting that day later after coming from dialysis. Patient fell and hit the left side of his head in the bathtub where he spent a little more than 3 hourse trying to crawl out and request EMS assistance. He was brought into ER for evaluation for syncopal episode. Pt was found with orthostatic hypotension, low grade fever (tmax: 100.1F), and bradycardia on evaluation at ER. On labs, pt presented with leukocytosis wbc=19k and high pct 19.4 reason for which he was admitted. Tests for Influenza a/b and covid negative. UA was neg for nitrites or bacteria. CXR showed moderate size mass adjacent to aortic arch (previously seen in 03/17/22) but no acute infiltrate or metastasis. CTH showed mild atrophy but no acute fractures. CT a/p showed cholelithiasis without cholecystitis. Pt was given one dose of Azithromycin + Ceftriaxone at ED, then started on Vancomycin + Zosyn while inpatient. WBC has downtrended to 12.6k, blood cultures still pending. Now consulted to ID service for further evaluation of elevated white blood cell co unt. Constitutional Constitutional: Present chills and fever(s) Additional comments: refers new onset episode of chills on 04/26/22 after getting home from HD; refers an episode of fever at home but cannot recall how high EENT Eyes: Present as per HPI Ears: Present as per HPI Nose, mouth and throat: Present as per HPI Cardiovascular Cardiovascular: Present as per HPI and chest pain Additional comments: referred some chest pain on ED admission, now subsided Respiratory Respiratory: Present cough and dyspnea Additional comments: Denies Genitourinary Genitourinary: dysuria and urinary urgency Additional comments: Denies Musculoskeletal Musculoskeletal: Present joint swelling and myalgias Additional comments: Denies Integumentary Additional comments: Refers skin changes from his skin cancer which he uses creams in his upper extremities; denies lower extremity swelling Neurological Neurological: Present as per HPI Endocrine Endocrine: Present as per HPI PFSH PFSH All Active Problems (Updated 04/28/22 @ 17:26 by Claudia Wong MD) Sepsis associated hypotension (Acute) ESRD on hemodialysis (Chronic) Hypokalemia (Acute) Fall (Acute) Leukocytosis (Acute) Nocturia (Chronic) Hypertension (Chronic) Chronic kidney disease, stage 4 (severe) (Chronic) Diabetes mellitus (Chronic) Diabetic retinopathy (Chronic) Macular puckering (Chronic) Cellulitis (Chronic) Chronic sinusitis (Chronic) SOB (shortness of breath) (Chronic) Wheezing (Chronic) Acid reflux (Chronic) Urinary urgency (Chronic) Chronic stasis dermatitis (Chronic) Morbidly obese (Chronic) No significant past surgical history (Chronic) Hyperkalemia (Acute) Uncontrolled type 2 diabetes mellitus with stage 4 chronic kidney disease, with long-term current use of insulin (Chronic) 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) Hyperparathyroidism due to renal insufficiency (Chronic) Chronic kidney disease (CKD), stage IV (severe) (Chronic) Chronic diastolic CHF (congestive heart failure), NYHA class 2 (Chronic) Hypotension (Acute) CHF (congestive heart failure) (Acute) BPH (benign prostatic hyperplasia) (Acute) Essential hypertension (Chronic) Diabetes mellitus with chronic kidney disease, without long-term current use of insulin (Chronic) Acute neck pain (Acute) Acute neck pain (Acute) Viral syndrome (Acute) Acute anemia (Acute) Anemia due to stage 4 chronic kidney disease treated with darbepoetin (Acute) Iron deficiency (Acute) Mass of left lung (Chronic) TIA (transient ischemic attack) (Acute) Transient confusion (Acute) ANNA (acute kidney injury) (Acute) Acute renal failure superimposed on stage 5 chronic kidney disease, not on chronic dialysis (Acute) End-stage renal disease needing dialysis (Chronic) Anemia due to stage 5 chronic kidney disease treated with darbepoetin (Chronic) Anemia in ESRD (end-stage renal disease) (Chronic) Hypoglycemia (Acute) Hypoglycemia (Acute) Uncontrolled type 2 diabetes mellitus with ESRD (end-stage renal disease) (Acute) Strain of sternocleidomastoid muscle (Acute) Pneumonia (Acute) Medical History Acid reflux Cellulitis Chronic diastolic CHF (congestive heart failure), NYHA class 2 Suspect HTN > valvular heart disease. 05/2021: Add diltiazem in place of amlodipine Chronic kidney disease (CKD), stage IV (severe) HTN, NSAIDs with nephrotic range proteinuria...suspect prior NSAIDS cause and doubt DM as HgA1c well controlled over the years. Since spring, there has been worsening of GFR to 14 cc/min but improved proteinuria Chronic kidney disease, stage 4 (severe) Most likely associated with diabetes mellitus type 2 with proteinuria present Chronic sinusitis Chronic stasis dermatitis Diabetes mellitus Diabetic nephropathy associated with type 2 diabetes mellitus Stable GFR and marked improvement in urine protein losses argues against DM nephropathy or marked improvement /therapeutic sucess with ACEi Diabetic retinopathy Hypertension Goal blood pressure is 130/80 He is not achieve that goal yet but is improved... Increase hydralazine to 1 00 mg 3 times a day on 11/13/2021 and continue lisinopril 20 mg a day and the diltiazem and carvedilol Macular puckering Morbidly obese Nocturia SOB (shortness of breath) Uncontrolled type 2 diabetes mellitus with stage 4 chronic kidney disease, with long-term current use of insulin Currently on 70/30 insulin as well as low-dose glipizide Urinary urgency Viral syndrome Wheezing Surgical History No significant past surgical history Social History (Updated 09/15/19 @ 19:21 by Vinnie Logan MD) smoking status: Former smoker alcohol intake frequency: does not drink substance use type: does not use MEDS/ALLERGIES Home Medications and Allergies Home Medications Medication Instructions Recorded Confirmed Type insulin glargine 100 unit/mL (3 10 unit (0.1 mL) subcut QPM DM #15 01/22/22 04/27/22 Rx mL) subcutaneous pen (Basaglar mL KwikPen U-100 Insulin) pen needle, diabetic 31 gauge x #100 ea 01/22/22 Rx 5/16" (Lite Touch Insulin Pen Cascadia) amlodipine 5 mg tablet 1 tab PO QDAY 04/27/22 04/27/22 History amoxicillin 500 mg-potassium 1 tab PO Q12H #14 tabs 04/27/22 Rx clavulanate 125 mg tablet (Augmentin) azithromycin 250 mg tablet See Rx Instructions PO DAILY 04/27/22 Rx infection #4 tabs carvedilol 3.125 mg tablet 1 tab PO BID 04/27/22 04/27/22 History famotidine 20 mg tablet 1 tab PO BID 04/27/22 04/27/22 History furosemide 20 mg tablet 1 tab PO BID 04/27/22 04/27/22 History pravastatin 10 mg tablet 1 tab PO QDAY 04/27/22 04/27/22 History tamsulosin 0.4 mg capsule 2 cap PO QDAY 04/27/22 04/27/22 History Allergies Allergy/AdvReac Type Severity Reaction Status Date / Time doxazosin AdvReac Mild Vomiting Verified 04/27/22 22:12 Physical Examination Vital Signs Vital signs: Temp Pulse Resp BP Pulse Ox O2 Del Method O2 Flow Rate 98.3 F 54 L 16 108/52 96 0 04/28/22 12:00 04/28/22 12:00 04/28/22 12:00 04/28/22 12:00 04/28/22 12:00 04/28/22 12:00 04/28/22 08:00 Constitutional General appearance: no acute distress and other (chronically ill) EENT Eyes pulmonary: nonicteric Neck: other (Right chest wall HD catheter) Respiratory Effort: normal Integumentary Integumentary: other (bilateral upper extremity excoriations) Neurologic Neurological: normal mental status Psychiatric Psychiatric: mood appropriate Results Laboratory Findings CBC and BMP: 04/28/22 05:48 04/28/22 05:47 Abnormal lab findings: Abnormal Labs 04/27/22 04/27/22 04/27/22 11:56 11:59 12:01 WBC 19.9 H RBC 3.73 L Hgb 10.9 L Hct 34.2 L POC Hct 35.0 L RDW 14.6 H Immature Gran % (Auto) 0.6 H Neut % (Auto) 90.8 H Lymph % (Auto) 2.7 L Lymph # (Auto) 0.54 L [place] # (Auto) 1.05 H Immature Gran # 0.12 H Absolute Neutrophils 18.07 H POC VBG pCO2 at Temp 39.1 L Sodium POC Potassium 3.0 L POC BUN 70 H BUN Creatinine POC Creatinine 6.6 H* Glucose POC Glucose 125 H Hemoglobin A1c POC WB Ioniz Calcium 1.01 L AST ALT Alkaline Phosphatase Albumin Albumin/Globulin Ratio Procalcitonin Urine Protein Urine Ketones Urine Occult Blood Amorphous Crystals Urine Mucus 04/27/22 04/27/22 04/28/22 12:45 18:00 05:47 WBC RBC Hgb Hct POC Hct RDW Immature Gran % (Auto) Neut % (Auto) Lymph % (Auto) Lymph # (Auto) [place] # (Auto) Immature Gran # Absolute Neutrophils POC VBG pCO2 at Temp Sodium 132 L POC Potassium POC BUN BUN 81 H Creatinine 5.8 H* POC Creatinine Glucose 115 H POC Glucose Hemoglobin A1c 6.5 H POC WB Ioniz Calcium AST 123 H ALT 105 H Alkaline Phosphatase 462 H Albumin 2.8 L Albumin/Globulin Ratio 0.8 L Procalcitonin 19.40 H Urine Protein 100 A Urine Ketones Trace A Urine Occult Blood Small A Amorphous Crystals Few A Urine Mucus Few A 04/28/22 05:48 WBC 12.6 H RBC 3.48 L Hgb 10.1 L Hct 32.6 L POC Hct RDW 14.9 H Immature Gran % (Auto) Neut % (Auto) 83.7 H Lymph % (Auto) 6.7 L Lymph # (Auto) 0.84 L [place] # (Auto) 1.03 H Immature Gran # 0.06 H Absolute Neutrophils 10.55 H POC VBG pCO2 at Temp Sodium POC Potassium POC BUN BUN Creatinine POC Creatinine Glucose POC Glucose Hemoglobin A1c POC WB Ioniz Calcium AST ALT Alkaline Phosphatase Albumin Albumin/Globulin Ratio Procalcitonin Urine Protein Urine Ketones Urine Occult Blood Amorphous Crystals Urine Mucus Microbiology: Microbiology 04/27/22 00:14 Nose MRSA (PCR) - Final Diagnostic Findings Chest x-ray: report reviewed and image reviewed CT scan - chest: report reviewed and image reviewed A/P Assessment and plan (1) Sepsis associated hypotension: Assessment and plan: 76M hx of HTN, DM, and ESRD on HD presents with shaking chills, 1 episode of vomiting, lightheadedness, and falling at home later after his HD session on 04/26/22. Upon admission, pt was febrile, hypotensive with leukocytosis and increased pct and lactic acid. Preliminary imaging studies unclear of source of infection but now wbc is downtrending following IV Vancomycin + Zosyn. Still awaiting blood cultures. Given that patient's symptoms started later after his HD sessions, would monitor closely catheter site at next HD session. Plan: - continue Vancomycin 1500mg IV TIW for now; check Vanco trough 30mins before 4th dose - continue Zosyn 2.25g IV q8hrs for now adjusted to kidney function - will follow up blood cultures to reassess antibiotic treatment - monitor closely HD catheter site Status: Acute (2) Leukocytosis: Status: Acute Time Spent With Patient Time: Total time spent is greater than 50% in coordination of care (as documented) at patient's floor/unit and/or counseling patient: Initial: Total time with patient: 40 - 54 minutes Critical Care Time: Yes Total Critical Care Time: 40 (mins) Attestation: Claudia Wong MD Infectious Disease Hooker Operator #[phone]
[2022-04-28] MEDS ORDERED: SIMVASTATIN 10 MG TABLET PO SCH (21:00)
[2022-04-28] MEDS: SENNOSIDES 1 TABLET PO SCH (21:53)
[2022-04-28] MEDS: INSULIN GLARGINE, HUMAN 1 UNIT/0.01 ML SQ SCH (22:03)
[2022-04-29] MEDS: 0.9 % SODIUM CHLORIDE 1,000 ML IV SCH (02:09)
[2022-04-29] MEDS: 0.9 % SODIUM CHLORIDE 10 ML SYRINGE IV SCH ×3 (05:45→20:00)
[2022-04-29] MEDS: PIPERACILLIN SODIUM/TAZOBACTAM 2.25 GM in DEXTROSE 5% IN WATER 50 ML IV SCH ×3 (05:45→23:10)
[2022-04-29] MEDS: ACETAMINOPHEN 325 MG TABLET PO PRN ×3 (05:48→19:49)
[2022-04-29 07:05] LABS: Basophils # (Auto) 0.04 K/mcL (0.00-0.30); Basophils % (Auto) 0.6 % (0.0-2.0); Eosinophils # (Auto) 0.06 K/mcL (0.00-0.70); Eosinophils % (Auto) 0.9 % (0.0-7.0); Hematocrit 31.5 % (40.1-51.0); Lymphocytes % (Auto) 12.4 % (15.5-49.0); Mean Cell Volume 92.4 fL (80.0-100.0); Mean Corpuscular HGB Conc 31.7 g/dL (31.0-36.0); Mean Platelet Volume 9.8 fL (8.8-12.5); Monocytes # (Auto) 0.65 K/mcL (0.10-0.90); Neutrophils % (Auto) 75.6 % (38.0-78.0); Platelet Count 264 K/mcL (140-440); RBC 3.41 M/mcL (4.63-6.08); Red Cell Distribution Width 14.8 % (11.5-14.5); WBC 6.5 K/mcL (4.5-11.0)
[2022-04-29 07:36] LABS: ALT/SGPT 82 U/L (<40); AST/SGOT 75 U/L (<40); Albumin 2.6 gm/dL (3.2-5.2); Albumin/Globulin Ratio 0.7 (1.0-2.3); Alkaline Phosphatase 430 U/L (39-117); Bilirubin,Total 0.4 mg/dL (0.1-1.0); Blood Urea Nitrogen 80 mg/dL (8-23); Calcium 9.1 mg/dL (8.6-10.4); Carbon Dioxide 21 mmol/L (22-30); Chloride 97 mmol/L (96-108); Globulin 3.8 gm/dL (2.2-3.7); Glomerular Filtration Rate 8; Glucose 99 mg/dL (70-105)
[2022-04-29] MEDS: HEPARIN 5,000 UNIT/ML VIAL SQ SCH ×2 (08:31→19:58)
[2022-04-29] MEDS: TAMSULOSIN 0.4 MG CAPSULE PO SCH (08:31)
[2022-04-29] MEDS: INSULIN LISPRO 1 UNIT/0.01 ML UNIT SQ SCH ×4 (08:31→20:11)
[2022-04-29] MEDS: MIDODRINE 5 MG TABLET PO SCH (08:31)
[2022-04-29] MEDS: DOCUSATE SODIUM 100 MG CAPSULE PO SCH ×2 (08:32→19:58)
--- NOTE | 2022-04-29 11:02 | Nephrology Progress Note ---
SUBJECTIVE Subjective Patient information: Note initiated : 04/29/22 at 10:55 am Patient: Rito Fleming 76 y/o M admitted on 04/27/22 for fall, syncope, low blood pressure. Chief Complaint: Weakness Pertinent ROS: Weakness Feels better Constitutional Vitals: Vital Signs Temp Pulse Resp BP Pulse Ox O2 Del Method O2 Flow Rate 97.2 F 52 L 18 154/74 98 0 04/29/22 10:35 04/29/22 10:35 04/29/22 08:00 04/29/22 10:35 04/29/22 08:00 04/29/22 08:00 04/28/22 16:00 Period Temp Pulse Resp BP Sys/Nielsen Pulse Ox O2 Del Method O2 Flow Rate Last 24 Hr 97.2 F-100.6 F 52-69 14-20 108-181/52-94 93-98 Room Air-Room Air 0 Intake and Output 04/28/22 04/29/22 04/29/22 19:59 03:59 11:59 Intake Total 920 1195 590 Output Total 475 1200 400 Balance 445 -5 190 Weight 185 lb 3.2 oz Intake & Output: Intake & Output 04/28/22 04/29/22 04/29/22 19:59 03:59 11:59 Intake Total 920 1195 590 Output Total 475 1200 400 Balance 445 -5 190 Weight 185 lb 3.2 oz Intake: Nourishment/Supplement quantity 240 (ml) IV 50 955 50 Sodium Chloride 0.9% 1,000 ml @ 905 75 mls/hr IV .[id number] [facility] Rx#: [id number] Zosyn 2.25 gm In Dextrose 5% in 50 50 50 Water 50 ml @ 100 mls/hr IV Q8H [facility] Rx#:[id number] Oral 870 240 300 Output: Void Amount 475 1200 400 Other: Meal Dinner Breakfast Percent of Meal Consumed 100% 100% Nourishment/Supplement name Ensure Urine Appearance Clear Clear Clear Urine Color Yellow Yellow Yellow Urine Odor Normal # Voids 1 General appearance: cooperative and no acute distress Head Head exam: Present normal inspection Eye Eye exam: Present normal appearance ENT ENT exam: Present mucous membranes moist Respiratory Respiratory exam: Absent respiratory distress Cardiovascular Cardiovascular exam: Present normal rate and rhythm GI/Abdominal GI/Abdominal exam: Present soft; Absent tenderness Extremities Exam Extremities exam: Absent joint swelling or pedal edema Neurological Exam Neurological exam: Present alert and oriented X3 Psychiatric Psychiatric exam: Present normal affect and normal mood Skin Skin exam: Present warm; Absent rash A/P Assessment and plan (1) ESRD on hemodialysis: Assessment and plan: Rito Fleming is a 76-year-old male with end stage renal disease on hemodialysis, chronic anemia due to ESRD, HFpEF, moderate aortic stenosis, hypertension, diabetes mellitus type 2 admitted on 04/27/22. He was presented to ED for lightheadedness. He fell in his bathroom where he spent the next 3 and half hours until he could crawl himself up and call an ambulance. In ED, he had orthostatic hypotension. Labs were significant for leukocytosis with WBC 19.9, procalcitonin level 19.4, and lactic acid 1.3. COVID and influenza screen negative. Nephrology consultation was requested for end stage renal disease. End stage renal disease on chronic hemodialysis on TTS at [facility]. Last HD on 04/26/22. Tunneled HD catheter. Chronic anemia due to ESRD. Hypertension with orthostatic hypotension. Suspected infection with leukocytosis and procalcitonin elevation with Tmax 100.6 on 04/28/22, being treated with Vancomycin and Zosyn. ID consult done on 04/28/22. Line sepsis considered. Liver enzyme elevation, new, mild. 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 Pulmonary arterial hypertension by CT on 03/17/22. Workup: CT Abdomen and Pelvis on 04/27/22: Atrophy of both kidneys consistent with chronic diabetes. Cholelithiasis without cholecystitis. No acute abnormality in the abdomen or pelvis. CXR on 04/27/22: Stable tumor adjacent to the aortic arch and no acute abnormality. Blood culture on 04/27/22: Pending. Progress: ID consult done on 04/28/22. Hypotension improved after Amlodipine, Carvedilol and Furosemide held as well as Midodrine and IVF administered. Toradol discontinued to prevent acute kidney injury of residual kidney function. Statins discontinued for liver enzyme elevation. Hyponatremia and metabolic acidosis, mild associated with ESRD. Hypokalemia, resolved after supplementation. Adjustment of dialysate potassium may be needed. Recommendations/Plan: Midodrine discontinued for hypertension. Hemodialysis today. The patient seen and evaluated during hemodialysis. Tolerating well so far. Adjustment of dialysate potassium may be needed. Status: Chronic Time Spent With Patient Time: Total time spent is greater than 50% in coordination of care (as documented) at patient's floor/unit and/or counseling patient:
--- NOTE | 2022-04-29 13:35 | Internal Med Progress Note ---
SUBJECTIVE Subjective Patient information: Note initiated : 04/29/22 at 1:29 pm Service Date, if different from initiated Date: [] Patient: Rito Fleming 76 y/o M admitted on 04/27/22 for fall, syncope, low blood pressure. Chief Complaint: follow up leukocytosis Principal diagnosis: Sepsis unknown source, leukocytosis Interval history: wbc downtrended to 6k, preliminary blood cultures no growth after 1 day Pertinent ROS: refers some weakness still, denies lightheadedness Constitutional Vitals: Vital Signs Temp Pulse Resp BP Pulse Ox O2 Del Method O2 Flow Rate 97.2 F 48 L 18 161/72 98 0 04/29/22 10:35 04/29/22 12:57 04/29/22 08:00 04/29/22 12:57 04/29/22 08:00 04/29/22 08:00 04/28/22 16:00 Period Temp Pulse Resp BP Sys/Nielsen Pulse Ox O2 Del Method O2 Flow Rate Last 24 Hr 97.2 F-100.6 F 46-69 15-20 108-181/52-94 93-98 Room Air-Room Air 0 Intake and Output 04/29/22 04/29/22 04/29/22 03:59 11:59 19:59 Intake Total 1195 590 95 Output Total 1200 400 Balance -5 190 95 Intake & Output: Intake & Output 04/29/22 04/29/22 04/29/22 03:59 11:59 19:59 Intake Total 1195 590 95 Output Total 1200 400 Balance -5 190 95 Intake: Nourishment/Supplement quantity 240 (ml) IV 955 50 95 Sodium Chloride 0.9% 1,000 ml @ 905 95 75 mls/hr IV .[id number] [facility] Rx#: [id number] Zosyn 2.25 gm In Dextrose 5% in 50 50 Water 50 ml @ 100 mls/hr IV Q8H [facility] Rx#:[id number] Oral 240 300 Output: Void Amount 1200 400 Other: Meal Breakfast Percent of Meal Consumed 100% Nourishment/Supplement name Ensure Urine Appearance Clear Clear Urine Color Yellow Yellow # Voids 1 General appearance: cooperative and no acute distress Exam: chronically ill Head Head exam: Present atraumatic Eye Eye exam: Present EOMI and PERRL ENT ENT exam: Present mucous membranes moist Neck Neck exam: Present full ROM Respiratory Respiratory exam: Present normal respiratory exam Cardiovascular Cardiovascular exam: Present bradycardia Extremities Exam Additional comments: symmetric Skin Additional comments: right chest wall tunneled HD catheter OBJ DATA Labs CBC & Chem 7: 04/29/22 05:16 04/29/22 05:16 Labs: Abnormal Lab Results 04/29/22 04/29/22 04/28/22 05:16 05:16 05:48 WBC 12.6 H RBC 3.41 L 3.48 L Hgb 10.0 L 10.1 L Hct 31.5 L 32.6 L POC Hct RDW 14.8 H 14.9 H Immature Gran % (Auto) Neut % (Auto) 83.7 H Lymph % (Auto) 12.4 L 6.7 L Lymph # (Auto) 0.80 L 0.84 L [place] # (Auto) 1.03 H Immature Gran # 0.06 H Absolute Neutrophils 10.55 H POC VBG pCO2 at Temp Sodium 132 L POC Potassium Carbon Dioxide 21 L POC BUN BUN 80 H Creatinine 6.0 H* POC Creatinine Glucose POC Glucose Hemoglobin A1c POC WB Ioniz Calcium AST 75 H ALT 82 H Alkaline Phosphatase 430 H Albumin 2.6 L Globulin 3.8 H Albumin/Globulin Ratio 0.7 L Procalcitonin Urine Protein Urine Ketones Urine Occult Blood Amorphous Crystals Urine Mucus 04/28/22 04/27/22 04/27/22 05:47 18:00 12:45 WBC RBC Hgb Hct POC Hct RDW Immature Gran % (Auto) Neut % (Auto) Lymph % (Auto) Lymph # (Auto) [place] # (Auto) Immature Gran # Absolute Neutrophils POC VBG pCO2 at Temp Sodium 132 L POC Potassium Carbon Dioxide POC BUN BUN 81 H Creatinine 5.8 H* POC Creatinine Glucose 115 H POC Glucose Hemoglobin A1c 6.5 H POC WB Ioniz Calcium AST 123 H ALT 105 H Alkaline Phosphatase 462 H Albumin 2.8 L Globulin Albumin/Globulin Ratio 0.8 L Procalcitonin 19.40 H Urine Protein 100 A Urine Ketones Trace A Urine Occult Blood Small A Amorphous Crystals Few A Urine Mucus Few A 04/27/22 04/27/22 04/27/22 12:01 11:59 11:56 WBC 19.9 H RBC 3.73 L Hgb 10.9 L Hct 34.2 L POC Hct 35.0 L RDW 14.6 H Immature Gran % (Auto) 0.6 H Neut % (Auto) 90.8 H Lymph % (Auto) 2.7 L Lymph # (Auto) 0.54 L [place] # (Auto) 1.05 H Immature Gran # 0.12 H Absolute Neutrophils 18.07 H POC VBG pCO2 at Temp 39.1 L Sodium POC Potassium 3.0 L Carbon Dioxide POC BUN 70 H BUN Creatinine POC Creatinine 6.6 H* Glucose POC Glucose 125 H Hemoglobin A1c POC WB Ioniz Calcium 1.01 L AST ALT Alkaline Phosphatase Albumin Globulin Albumin/Globulin Ratio Procalcitonin Urine Protein Urine Ketones Urine Occult Blood Amorphous Crystals Urine Mucus Meds: Medications Acetaminophen (Acetaminophen 325 Mg Tablet) 650 mg PO Q6HP PRN; Protocol PRN Reason: Per Pain Protocol/Fever > 101 Last Admin: 04/29/22 05:48 Dose: 650 mg Albuterol/Ipratropium (Ipratropium/Albuterol 3 Ml Ampul.Neb) 3 ml NEB Q4HRT PRN PRN Reason: Wheezing Dextrose (Dextrose 50% 50 Ml Vial) 0 ml IV UD PRN PRN Reason: Per Sliding Scale Diagnostic Test (Pha) (Accu-Chek 1 Each Strip) 1 each FS ACHS [facility] Last Admin: 04/29/22 12:38 Dose: 1 each Docusate Sodium (Docusate Sodium 100 Mg Capsule) 100 mg PO BID [facility] Last Admin: 04/29/22 08:32 Dose: Not Given Famotidine (Famotidine 20 Mg Tablet) 10 mg PO 2100 [facility] Glucose (Dextrose 31 Gm Oral.Susp) 15 gm PO PRN PRN PRN Reason: Hypoglycemia Heparin Sodium (Porcine) (Heparin 5,000 Unit/Ml Vial) 5,000 unit SQ Q12 [facility] Last Admin: 04/29/22 08:31 Dose: 5,000 unit Hydralazine HCl (Hydralazine 20 Mg/Ml Vial) 10 mg IV Q4HP PRN PRN Reason: Hypertension Piperacillin Sod/Tazobactam (Sod 2.25 gm/ Dextrose) 50 mls @ 100 mls/hr IV Q8H [facility] Last Infusion: 04/29/22 06:41 Dose: Infused Insulin Glargine (Insulin Glargine, Human 1 Unit/0.01 Ml) 10 unit SQ HS [facility] Last Admin: 04/28/22 22:03 Dose: 10 units Insulin Human Lispro (Insulin Lispro 1 Unit/0.01 Ml Unit) 0 unit SQ ACHS [facility]; Protocol Last Admin: 04/29/22 12:38 Dose: Not Given Ondansetron HCl (Ondansetron 4 Mg/2 Ml Vial) 4 mg IV Q6HP PRN PRN Reason: Nausea And Vomiting Senna (Sennosides 1 Tablet) 2 tab PO HS [facility] Last Admin: 04/28/22 21:53 Dose: 2 tab Sodium Chloride (0.9 % Sodium Chloride 10 Ml Syringe) 10 ml IV Q8 [facility] Last Admin: 04/29/22 05:45 Dose: 10 ml Tamsulosin HCl (Tamsulosin 0.4 Mg Capsule) 0.8 mg PO QDAY [facility] Last Admin: 04/29/22 08:31 Dose: 0.8 mg Trazodone HCl (Trazodone Hcl 50 Mg Tablet) 25 mg PO HSP PRN PRN Reason: Insomnia Vancomycin HCl (Vancomycin Per Pharmacy) 1 order IV UD [facility]; Protocol A/P Assessment and plan (1) Leukocytosis: Assessment and plan: 76M hx of HTN, DM, and ESRD on HD presents with shaking chills, 1 episode of vomiting, lightheadedness, and falling at home later after his HD session on 04/26/22. Upon admission, pt was febrile, hypotensive with leukocytosis and increased pct and lactic acid. Preliminary imaging studies unclear of source of infection but now wbc is downtrending following IV Vancomycin + Zosyn. WBC downtrended and now leukocytosis has resolved (19k > 12k >6k); unclear if episode of leukocytosis was secondary to traumatic fall and hypotension; blood cultures preliminary have shown no growth at one day. Pt seen today while getti ng HD, no febrile episodes or hypotension reported. Plan: - complete 5 days total Vancomycin 1,500mg IV TIW after HD; keep trough level between 15-20 - discontinue Zosyn; complete remaining 5 day course with Ceftazidime 2g IV on and 3g IV on Thursday post HD - monitor clinically for fever or hypotension Status: Acute Time Spent With Patient Time: Total time spent is greater than 50% in coordination of care (as documented) at patient's floor/unit and/or counseling patient: Subsequent: Total time with patient: 25 - 34 minutes Total Critical Care Time: 25 (mins) QUALITY VTE Deep Vein Thrombosis/Pulmonary Embolism Present on Admission: Yes
--- NOTE | 2022-04-29 16:33 | Internal Med Progress Note ---
SUBJECTIVE Subjective Patient information: Note initiated : 04/29/22 at 4:28 pm Service Date, if different from initiated Date: [] Patient: Rito Fleming a 76 y/o M admitted on 04/27/22 for fall, syncope, low blood pressure. Chief Complaint: [] Principal diagnosis: Sepsis unknown source, leukocytosis Interval history: Mr. Fleming is a 76 year old M Thursday, type 2 diabetes mellitus, essential hypertensions, BPH, presenting with fall. He has been receiving hemodialysis for the past month we are dialysis catheter on his right chest wall. Last dialysis was yesterday. Earlier this morning he had l ightheadedness and he fell inside his bathroom where he spent the next 3 and half hours in the bathroom until he could crawl himself up and call ambulance to send to our ED for evaluation. CT of the head without contrast no acute abnormalities. He was showing orthostatic hypotension's. Labs Significant for leukocytosis with WBC 19.9, H&H 10.9 and 34.2, respectively. Chemistry significant for potassium level 3.0, serum creatinine level 6.6, procalcitonin level 19.4, and lactic acid 1.3. COVID and influenza screening negative. UA does not suggest the presence of urinary tract infections. A recent chest CT in March 2022 showing a large left upper lobe mass with mediastinal invasion. It was adjacent to the aortic arch. Chest x-ray today showing the same findings with no interval changes and no focal lung parenchymal infiltrate or metastases. CT of the abdomen pelvis without contrast today showing cholelithiasis without Lisa cystitis and no other acute abnormalities in the abdomen or pelvis. Admission request is called for weakness and leukocytosis and elevated procalcitonin level concerning for infections. 04/28: Hypokalemia resolved, repeat serum potassium level 4.8. WBC also down trended from 19.9 to 12.6. Patient has been afebrile overnight. Blood and urine cultures no growth to date. Latest set of blood pressure 108/52mmHg. body strength has improved. He is complaining of mild to moderate left jaw/inner ear pain. He denies any subjective fever, chills, or diaphoresis. He denies any lower back pain. He denies any nausea vomiting or diarrhea. Continue to work with physical therapy. Continue empiric antibiotics with vancomycin and Zosyn. Continue gentle IV fluid with normal saline at 75 cc/h. Continue to hold antihypertensives and will continue with midodrine instead. 04/29: Fever with Tmax 38.1 overnight. All cultures no growth to date. WBC 6.5 today. s/p Hemodialysis. Blood pressure elevated to 170/82mmHg. Patient is feeling wobbly after the dialysis sections. He denies any fever chills or diaphoresis. He denies any pain. DC midodrine as per activity director recommendations. In terms of antibiotics, we will keep the vancomycin while stopping Zosyn and starting Ceftazidime as per ID recs. Continue to monitor for culture results. Keep saline lock. Physical therapy evaluation and treatment for placement planning. Constitutional Vitals: Vital Signs Temp Pulse Resp BP Pulse Ox O2 Del Method O2 Flow Rate 36.3 C 54 L 18 162/81 98 0 04/29/22 14:05 04/29/22 14:05 04/29/22 08:00 04/29/22 14:05 04/29/22 08:00 04/29/22 08:00 04/28/22 16:00 Period Temp Pulse Resp BP Sys/Nielsen Pulse Ox O2 Del Method O2 Flow Rate Last 24 Hr 36.2 C-38.1 C 46-69 15-20 140-181/60-94 93-98 Room Air-Room Air Intake and Output 04/29/22 04/29/22 04/29/22 03:59 11:59 19:59 Intake Total 1195 590 145 Output Total 5490 731 4068 Balance -5 190 -1855 Intake & Output: Intake & Output 04/29/22 04/29/22 04/29/22 03:59 11:59 19:59 Intake Total 1195 590 145 Output Total 5337 607 3077 Balance -5 190 -1855 Intake: Nourishment/Supplement quantity 240 (ml) IV 955 50 145 Sodium Chloride 0.9% 1,000 ml @ 905 95 75 mls/hr IV .[id number] [facility] Rx#: [id number] Zosyn 2.25 gm In Dextrose 5% in 50 50 50 Water 50 ml @ 100 mls/hr IV Q8H [facility] Rx#:[id number] Oral 240 300 Output: Void Amount 1200 400 Hemodialysis UF 1999 Other: Meal Breakfast Percent of Meal Consumed 100% Nourishment/Supplement name Ensure Urine Appearance Clear Clear Urine Color Yellow Yellow # Voids 1 1 Head Head exam: Present atraumatic and normal inspection Eye Eye exam: Present normal appearance ENT ENT exam: Present mucous membranes moist, normal exam and normal external ear exam Neck Neck exam: Present normal inspection Respiratory Respiratory exam: Present normal respiratory exam Cardiovascular Cardiovascular exam: Present normal rate and rhythm Additional comments: HD catheter left chest wall GI/Abdominal GI/Abdominal exam: Present normal bowel sounds Back Exam Back exam: Present normal inspection Neurological Exam Neurological exam: Present alert and oriented X3 Skin Skin exam: Present intact and warm OBJ DATA Labs CBC & Chem 7: 04/29/22 05:16 04/29/22 05:16 Labs: Abnormal Lab Results 04/29/22 04/29/22 04/28/22 05:16 05:16 05:48 WBC 12.6 H RBC 3.41 L 3.48 L Hgb 10.0 L 10.1 L Hct 31.5 L 32.6 L POC Hct RDW 14.8 H 14.9 H Immature Gran % (Auto) Neut % (Auto) 83.7 H Lymph % (Auto) 12.4 L 6.7 L Lymph # (Auto) 0.80 L 0.84 L [place] # (Auto) 1.03 H Immature Gran # 0.06 H Absolute Neutrophils 10.55 H POC VBG pCO2 at Temp Sodium 132 L POC Potassium Carbon Dioxide 21 L POC BUN BUN 80 H Creatinine 6.0 H* POC Creatinine Glucose POC Glucose Hemoglobin A1c POC WB Ioniz Calcium AST 75 H ALT 82 H Alkaline Phosphatase 430 H Albumin 2.6 L Globulin 3.8 H Albumin/Globulin Ratio 0.7 L Procalcitonin Urine Protein Urine Ketones Urine Occult Blood Amorphous Crystals Urine Mucus 04/28/22 04/27/22 04/27/22 05:47 18:00 12:45 WBC RBC Hgb Hct POC Hct RDW Immature Gran % (Auto) Neut % (Auto) Lymph % (Auto) Lymph # (Auto) [place] # (Auto) Immature Gran # Absolute Neutrophils POC VBG pCO2 at Temp Sodium 132 L POC Potassium Carbon Dioxide POC BUN BUN 81 H Creatinine 5.8 H* POC Creatinine Glucose 115 H POC Glucose Hemoglobin A1c 6.5 H POC WB Ioniz Calcium AST 123 H ALT 105 H Alkaline Phosphatase 462 H Albumin 2.8 L Globulin Albumin/Globulin Ratio 0.8 L Procalcitonin 19.40 H Urine Protein 100 A Urine Ketones Trace A Urine Occult Blood Small A Amorphous Crystals Few A Urine Mucus Few A 04/27/22 04/27/22 04/27/22 12:01 11:59 11:56 WBC 19.9 H RBC 3.73 L Hgb 10.9 L Hct 34.2 L POC Hct 35.0 L RDW 14.6 H Immature Gran % (Auto) 0.6 H Neut % (Auto) 90.8 H Lymph % (Auto) 2.7 L Lymph # (Auto) 0.54 L [place] # (Auto) 1.05 H Immature Gran # 0.12 H Absolute Neutrophils 18.07 H POC VBG pCO2 at Temp 39.1 L Sodium POC Potassium 3.0 L Carbon Dioxide POC BUN 70 H BUN Creatinine POC Creatinine 6.6 H* Glucose POC Glucose 125 H Hemoglobin A1c POC WB Ioniz Calcium 1.01 L AST ALT Alkaline Phosphatase Albumin Globulin Albumin/Globulin Ratio Procalcitonin Urine Protein Urine Ketones Urine Occult Blood Amorphous Crystals Urine Mucus Meds: Medications Acetaminophen (Acetaminophen 325 Mg Tablet) 650 mg PO Q6HP PRN; Protocol PRN Reason: Per Pain Protocol/Fever > 101 Last Admin: 04/29/22 14:47 Dose: 650 mg Albuterol/Ipratropium (Ipratropium/Albuterol 3 Ml Ampul.Neb) 3 ml NEB Q4HRT PRN PRN Reason: Wheezing Dextrose (Dextrose 50% 50 Ml Vial) 0 ml IV UD PRN PRN Reason: Per Sliding Scale Diagnostic Test (Pha) (Accu-Chek 1 Each Strip) 1 each FS ACHS [facility] Last Admin: 04/29/22 12:38 Dose: 1 each Docusate Sodium (Docusate Sodium 100 Mg Capsule) 100 mg PO BID [facility] Last Admin: 04/29/22 08:32 Dose: Not Given Famotidine (Famotidine 20 Mg Tablet) 10 mg PO 2100 [facility] Glucose (Dextrose 31 Gm Oral.Susp) 15 gm PO PRN PRN PRN Reason: Hypoglycemia Heparin Sodium (Porcine) (Heparin 5,000 Unit/Ml Vial) 5,000 unit SQ Q12 [facility] Last Admin: 04/29/22 08:31 Dose: 5,000 unit Hydralazine HCl (Hydralazine 20 Mg/Ml Vial) 10 mg IV Q4HP PRN PRN Reason: Hypertension Piperacillin Sod/Tazobactam (Sod 2.25 gm/ Dextrose) 50 mls @ 100 mls/hr IV Q8H [facility] Last Infusion: 04/29/22 15:05 Dose: Infused Insulin Glargine (Insulin Glargine, Human 1 Unit/0.01 Ml) 10 unit SQ [facility] Last Admin: 04/28/22 22:03 Dose: 10 units Insulin Human Lispro (Insulin Lispro 1 Unit/0.01 Ml Unit) 0 unit SQ ACHS [facility]; Protocol Last Admin: 04/29/22 12:38 Dose: Not Given Ondansetron HCl (Ondansetron 4 Mg/2 Ml Vial) 4 mg IV Q6HP PRN PRN Reason: Nausea And Vomiting Senna (Sennosides 1 Tablet) 2 tab PO [facility] Last Admin: 04/28/22 21:53 Dose: 2 tab Sodium Chloride (0.9 % Sodium Chloride 10 Ml Syringe) 10 ml IV Q8 [facility] Last Admin: 04/29/22 14:35 Dose: 10 ml Tamsulosin HCl (Tamsulosin 0.4 Mg Capsule) 0.8 mg PO QDAY [facility] Last Admin: 04/29/22 08:31 Dose: 0.8 mg Trazodone HCl (Trazodone Hcl 50 Mg Tablet) 25 mg PO HSP PRN PRN Reason: Insomnia Vancomycin HCl (Vancomycin Per Pharmacy) 1 order IV UD [facility]; Protocol A/P Assessment and plan (1) Leukocytosis: Status: Acute (2) Essential hypertension: Status: Chronic (3) BPH (benign prostatic hyperplasia): Status: Acute (4) Mass of left lung: Status: Chronic Comment: See CT 12/2021 Needs tissue Dx (5) Anemia in ESRD (end-stage renal disease): Status: Chronic (6) Uncontrolled type 2 diabetes mellitus with ESRD (end-stage renal disease): Status: Acute (7) Fall: Status: Acute (8) Hypokalemia: Status: Acute Narrative A/P Narrative: Assessment and Plans: 1. Leukocytosis: DDx: bacterial infection, malignancy, trauma stress Observation med surg telemetry Consulting infectious disease, recs. appreciated Serial lactic acid 1.3 Blood culture, no growth to date Urine culture, no growth to date cbc w/ auto diff in the morning to trend WBC Saline lock Hold oral antihypertensives, and give Midodrine instead Vancomycin d/c Zosyn, switch to Ceftazidime 2. Fall: Likely secondary to general weakness/physical deconditioning from comorbidities, treat accordingly, see above and below Physical therapy evaluation and treatment 3. Left lung mass: Hold body CT w/o contrast so far do not see any distant metastasis Follow up with outpatient oncology, pending 4. T2DM with ESRD on hemodialysis TThSa: Consult Dr. Post nephrology for dialysis needs HgA1c 6.4 Hold any oral hypoglycemics Lantus 10 unit qPM Lispro SSI AC HS Accu Check AC HS Hypoglycemia protocol Diabetic/renal diet 5. Hypokalemia: RESOLVED Potassium chloride oral replacement CMP in the morning to trend serum potassium level Also check serum magnesium level and replace if needed 6. Benign prostatic hypertrophy: Continue Flomax 7. Essential hypertension: d/c Midodrine given elevated blood pressure GI ppx: Pepcid DVT ppx: Heparin Code status: Full Prognosis: Guarding Disposition: observation med surg tele; PT Time Spent With Patient Time: Total time spent is greater than 50% in coordination of care (as documented) at patient's floor/unit and/or counseling patient: Subsequent: Total time with patient: 35 - 49 minutes QUALITY VTE Deep Vein Thrombosis/Pulmonary Embolism Present on Admission: Yes
[2022-04-29] MEDS ORDERED: VANCOMYCIN 1,500 MG in 0.9 % SODIUM CHLORIDE 500 ML IV SCH (17:00)
[2022-04-29] MEDS: SENNOSIDES 1 TABLET PO SCH (19:58)
[2022-04-29] MEDS: hydrALAZINE 20 MG/ML VIAL IV PRN (19:58)
[2022-04-29] MEDS: FAMOTIDINE 20 MG TABLET PO SCH (19:59)
[2022-04-29] MEDS: INSULIN GLARGINE, HUMAN 1 UNIT/0.01 ML SQ SCH (20:10)
[2022-04-29] MEDS ORDERED: POLYETHYLENE GLYCOL 3350 17 GM PACKET PO PRN (20:56)
[2022-04-30] MEDS: ACETAMINOPHEN 325 MG TABLET PO PRN ×2 (02:30→20:00)
[2022-04-30] MEDS: hydrALAZINE 20 MG/ML VIAL IV PRN ×2 (03:57→20:37)
[2022-04-30] MEDS: 0.9 % SODIUM CHLORIDE 10 ML SYRINGE IV SCH ×3 (05:30→20:19)
[2022-04-30] MEDS: PIPERACILLIN SODIUM/TAZOBACTAM 2.25 GM in DEXTROSE 5% IN WATER 50 ML IV SCH (05:30)
[2022-04-30] MEDS: INSULIN LISPRO 1 UNIT/0.01 ML UNIT SQ SCH ×4 (07:18→20:17)
[2022-04-30] MEDS ORDERED: CARVEDILOL 3.125 MG TABLET PO SCH (08:00)
[2022-04-30 08:18] LABS: ALT/SGPT 69 U/L (<40); AST/SGOT 60 U/L (<40); Albumin 2.8 gm/dL (3.2-5.2); Albumin/Globulin Ratio 0.8 (1.0-2.3); Alkaline Phosphatase 493 U/L (39-117); Bilirubin,Total 0.4 mg/dL (0.1-1.0); Blood Urea Nitrogen 49 mg/dL (8-23); Calcium 9.2 mg/dL (8.6-10.4); Carbon Dioxide 23 mmol/L (22-30); Chloride 96 mmol/L (96-108); Globulin 3.6 gm/dL (2.2-3.7); Glomerular Filtration Rate 14; Glucose 109 mg/dL (70-105)
--- NOTE | 2022-04-30 08:32 | Nephrology Progress Note ---
SUBJECTIVE Subjective Patient information: Note initiated : 04/30/22 at 8:30 am Patient: Rito Fleming 76 y/o M admitted on 04/27/22 for fall, syncope, low blood pressure. Chief Complaint: Weakness Principal diagnosis: Sepsis unknown source, leukocytosis Pertinent ROS: Weakness Constitutional Vitals: Vital Signs Temp Pulse Resp BP Pulse Ox O2 Del Method O2 Flow Rate 98.4 F 58 L 17 119/52 97 0 04/30/22 07:22 04/30/22 07:22 04/30/22 07:22 04/30/22 07:22 04/30/22 07:22 04/30/22 07:22 04/28/22 16:00 Period Temp Pulse Resp BP Sys/Nielsen Pulse Ox O2 Del Method O2 Flow Rate Last 24 Hr 97.2 F-99.1 F 46-61 14-18 119-194/52-90 97-100 Room Air-Room Air Intake and Output 04/29/22 04/30/22 04/30/22 19:59 03:59 11:59 Intake Total 645 450 Output Total 1999 125 Balance -1355 325 Weight 183 lb 1.6 oz Intake & Output: Intake & Output 04/29/22 04/30/22 04/30/22 19:59 03:59 11:59 Intake Total 645 450 Output Total 1999 125 Balance -1355 325 Weight 183 lb 1.6 oz Intake: IV 645 50 Sodium Chloride 0.9% 1,000 ml @ 95 75 mls/hr IV .[id number] [facility] Rx#: [id number] Zosyn 2.25 gm In Dextrose 5% in 50 50 Water 50 ml @ 100 mls/hr IV Q8H [facility] Rx#:[id number] Vancomycin 1,500 mg In Sodium 500 Chloride 0.9% 500 ml @ 333.3 mls/hr IV 1700 [facility] Rx#: [id number] Oral 400 Output: Void Amount 125 Hemodialysis UF 2000 Other: Meal Dinner Percent of Meal Consumed 100% Feeding Ability Independent Urine Appearance Clear Urine Color Yellow # Voids 1 1 1 General appearance: cooperative and no acute distress Head Head exam: Present normal inspection Eye Eye exam: Present normal appearance ENT ENT exam: Present mucous membranes moist Respiratory Respiratory exam: Absent respiratory distress Cardiovascular Cardiovascular exam: Present normal rate and rhythm GI/Abdominal GI/Abdominal exam: Present soft; Absent tenderness Extremities Exam Extremities exam: Absent joint swelling or pedal edema Neurological Exam Neurological exam: Present alert and oriented X3 Psychiatric Psychiatric exam: Present normal affect and normal mood Skin Skin exam: Present warm; Absent rash A/P Assessment and plan (1) ESRD on hemodialysis: Assessment and plan: Rito Fleming is a 76-year-old male with end stage renal disease on hemodialysis, chronic anemia due to ESRD, HFpEF, moderate aortic stenosis, hypertension, diabetes mellitus type 2 admitted on 04/27/22. He was presented to ED for lightheadedness. He fell in his bathroom where he spent the next 3 and half hours until he could crawl himself up and call an ambulance. In ED, he had orthostatic hypotension. Labs were significant for leukocytosis with WBC 19.9, procalcitonin level 19.4, and lactic acid 1.3. COVID and influenza screen negative. Nephrology consultation was requested for end stage renal disease. End stage renal disease on chronic hemodialysis on TTS at [facility]. Last HD on 04/26/22. Tunneled HD catheter. Chronic anemia due to ESRD. Hypertension with orthostatic hypotension. Suspected infection with leukocytosis and procalcitonin elevation with Tmax 100.6 on 04/28/22, being treated with Vancomycin and Zosyn. ID consult done on 04/28/22. Line sepsis considered. Liver enzyme elevation, new, mild. 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 Pulmonary arterial hypertension by CT on 03/17/22. Workup: CT Abdomen and Pelvis on 04/27/22: Atrophy of both kidneys consistent with chronic diabetes. Cholelithiasis without cholecystitis. No acute abnormality in the abdomen or pelvis. CXR on 04/27/22: Stable tumor adjacent to the aortic arch and no acute abnormality. Blood culture on 04/27/22: No growth so far. Progress: ID consult done on 04/28/22. Hypotension improved after Amlodipine, Carvedilol and Furosemide held as well as Midodrine and IVF administered. Toradol discontinued to prevent acute kidney injury of residual kidney function. Statins discontinued for liver enzyme elevation. Hyponatremia and metabolic acidosis, mild associated with ESRD, resolved with hemodialysis. Hypokalemia, resolved after supplementation. Adjustment of dialysate potassium may be needed. Last hemodialysis on 04/29/22. Recommendations/Plan: Carvedilol 3.125 mg twice daily resumed for hypertension. Next hemodialysis tomorrow. Adjustment of outpatient dialysate potassium may be needed. Status: Chronic Time Spent With Patient Time: Total time spent is greater than 50% in coordination of care (as documented) at patient's floor/unit and/or counseling patient:
[2022-04-30] MEDS: TAMSULOSIN 0.4 MG CAPSULE PO SCH (08:38)
[2022-04-30] MEDS: DOCUSATE SODIUM 100 MG CAPSULE PO SCH ×2 (08:39→20:38)
[2022-04-30] MEDS: HEPARIN 5,000 UNIT/ML VIAL SQ SCH ×2 (08:39→20:18)
[2022-04-30 09:04] LABS: Basophils # (Auto) 0.03 K/mcL (0.00-0.30); Basophils % (Auto) 0.6 % (0.0-2.0); Eosinophils # (Auto) 0.14 K/mcL (0.00-0.70); Eosinophils % (Auto) 2.7 % (0.0-7.0); Hematocrit 31.2 % (40.1-51.0); Hemoglobin 9.8 g/dL (13.7-17.5); Lymphocytes # (Auto) 0.99 K/mcL (1.50-4.80); Lymphocytes % (Auto) 18.9 % (15.5-49.0); Mean Cell Volume 91.8 fL (80.0-100.0); Mean Corpuscular HGB Conc 31.4 g/dL (31.0-36.0); Mean Platelet Volume 10.1 fL (8.8-12.5); Monocytes # (Auto) 0.85 K/mcL (0.10-0.90); Monocytes % (Auto) 16.2 % (1.0-12.0); Neutrophils % (Auto) 60.8 % (38.0-78.0); Platelet Count 260 K/mcL (140-440); Red Cell Distribution Width 14.8 % (11.5-14.5); WBC 5.2 K/mcL (4.5-11.0)
--- NOTE | 2022-04-30 11:07 | Internal Med Progress Note ---
SUBJECTIVE Subjective Patient information: Note initiated : 04/30/22 at 11:00 am Service Date, if different from initiated Date: [] Patient: Rito Fleming a 76 y/o M admitted on 04/30/22 for fall, syncope, low blood pressure. Chief Complaint: [] Principal diagnosis: Sepsis unknown source, leukocytosis Interval history: Mr. Fleming is a 76 year old M Thursday, type 2 diabetes mellitus, essential hypertensions, BPH, presenting with fall. He has been receiving hemodialysis for the past month we are dialysis catheter on his right chest wall. Last dialysis was yesterday. Earlier this morning he had lightheadedness and he fell inside his bathroom where he spent the next 3 and half hours in the bathroom until he could crawl himself up and call ambulance to send to our ED for evaluation. CT of the head without contrast no acute abnormalities. He was showing orthostatic hypotension's. Labs Significant for leukocytosis with WBC 19.9, H&H 10.9 and 34.2, respectively. Chemistry significant for potassium level 3.0, serum creatinine level 6.6, procalcitonin level 19.4, and lactic acid 1.3. COVID and influenza screening negative. UA does not suggest the presence of urinary tract infections. A recent chest CT in March 2022 showing a large left upper lobe mass with mediastinal invasion. It was adjacent to the aortic arch. Chest x-ray today showing the same findings with no interval changes and no focal lung parenchymal infiltrate or metastases. CT of the abdomen pelvis without contrast today showing cholelithiasis without Lisa cystitis and no other acute abnormalities in the abdomen or pelvis. Admission request is called for weakness and leukocytosis and elevated procalcitonin level concerning for infections. 04/28: Hypokalemia resolved, repeat serum potassium level 4.8. WBC also down trended from 19.9 to 12.6. Patient has been afebrile overnight. Blood and urine cultures no growth to date. Latest set of blood pressure 108/52mmHg. body strength has improved. He is complaining of mild to moderate left jaw/inner ear pain. He denies any subjective fever, chills, or diaphoresis. He denies any lower back pain. He denies any nausea vomiting or diarrhea. Continue to work with physical therapy. Continue empiric antibiotics with vancomycin and Zosyn. Continue gentle IV fluid with normal saline at 75 cc/h. Continue to hold antihypertensives and will continue with midodrine instead. 04/29: Fever with Tmax 38.1 overnight. All cultures no growth to date. WBC 6.5 today. s/p Hemodialysis. Blood pressure elevated to 170/82mmHg. Patient is feeling wobbly after the dialysis sections. He denies any fever chills or diaphoresis. He denies any pain. DC midodrine as per nutrition consultant recommendations. In terms of antibiotics, we will keep the vancomycin while stopping Zosyn and starting Ceftazidime as per ID recs. Continue to monitor for culture results. Keep saline lock. Physical therapy evaluation and treatment for placement planning. 04/30: Low grade fever Tmax 37.3 overnight. All cultures no growth to date. WBC 5.2 today. He is feeling fine this morning. Denies any fever, chills, or sweating this morning. c/o constipation. As per ID, continue Vancomycin/Ceftazidime. Continue to monitor for culture results. Keep saline lock. Physical therapy evaluation and treatment for placement planning. Switch to inpatient status. Constitutional Vitals: Vital Signs Temp Pulse Resp BP Pulse Ox O2 Del Method O2 Flow Rate 36.9 C 58 L 17 119/52 97 0 04/30/22 07:22 04/30/22 07:22 04/30/22 07:22 04/30/22 07:22 04/30/22 07:22 04/30/22 07:22 04/28/22 16:00 Period Temp Pulse Resp BP Sys/Nielsen Pulse Ox O2 Del Method O2 Flow Rate Last 24 Hr 36.3 C-37.3 C 46-61 14-18 119-194/52-90 97-100 Room Air-Room Air Intake and Output 04/29/22 04/30/22 04/30/22 19:59 03:59 11:59 Intake Total 645 450 Output Total 1999 125 Balance -1355 325 Weight 83.053 kg Intake & Output: Intake & Output 04/29/22 04/30/22 04/30/22 19:59 03:59 11:59 Intake Total 645 450 Output Total 1999 125 Balance -1355 325 Weight 83.053 kg Intake: IV 645 50 Sodium Chloride 0.9% 1,000 ml @ 95 75 mls/hr IV .[id number] [facility] Rx#: [id number] Zosyn 2.25 gm In Dextrose 5% in 50 50 Water 50 ml @ 100 mls/hr IV Q8H [facility] Rx#:[id number] Vancomycin 1,500 mg In Sodium 500 Chloride 0.9% 500 ml @ 333.3 mls/hr IV 1700 [facility] Rx#: [id number] Oral 400 Output: Void Amount 125 Hemodialysis UF 2000 Other: Meal Dinner Percent of Meal Consumed 100% Feeding Ability Independent Urine Appearance Clear Urine Color Yellow # Voids 1 1 1 Head Head exam: Present atraumatic and normal inspection Eye Eye exam: Present normal appearance ENT ENT exam: Present mucous membranes moist, normal exam and normal external ear e xam Neck Neck exam: Present normal inspection Respiratory Respiratory exam: Present normal respiratory exam Cardiovascular Cardiovascular exam: Present normal rate and rhythm Additional comments: HD catheter on chest wall GI/Abdominal GI/Abdominal exam: Present normal bowel sounds Back Exam Back exam: Present normal inspection Neurological Exam Neurological exam: Present alert and oriented X3 Skin Skin exam: Present intact and warm OBJ DATA Labs CBC & Chem 7: 04/30/22 05:39 04/30/22 05:39 Labs: Abnormal Lab Results 04/30/22 04/30/22 04/29/22 05:39 05:39 05:16 WBC RBC 3.40 L Hgb 9.8 L Hct 31.2 L POC Hct RDW 14.8 H Immature Gran % (Auto) 0.8 H Neut % (Auto) Lymph % (Auto) Anderson % (Auto) 16.2 H Lymph # (Auto) 0.99 L Anderson # (Auto) Immature Gran # Absolute Neutrophils POC VBG pCO2 at Temp Sodium 132 L POC Potassium Carbon Dioxide 21 L POC BUN BUN 49 H 80 H Creatinine 3.9 H 6.0 H* POC Creatinine Glucose 109 H POC Glucose Hemoglobin A1c POC WB Ioniz Calcium AST 60 H 75 H ALT 69 H 82 H Alkaline Phosphatase 493 H 430 H Albumin 2.8 L 2.6 L Globulin 3.8 H Albumin/Globulin Ratio 0.8 L 0.7 L Procalcitonin Urine Protein Urine Ketones Urine Occult Blood Amorphous Crystals Urine Mucus 04/29/22 04/28/22 04/28/22 05:16 05:48 05:47 WBC 12.6 H RBC 3.41 L 3.48 L Hgb 10.0 L 10.1 L Hct 31.5 L 32.6 L POC Hct RDW 14.8 H 14.9 H Immature Gran % (Auto) Neut % (Auto) 83.7 H Lymph % (Auto) 12.4 L 6.7 L Anderson % (Auto) Lymph # (Auto) 0.80 L 0.84 L Anderson # (Auto) 1.03 H Immature Gran # 0.06 H Absolute Neutrophils 10.55 H POC VBG pCO2 at Temp Sodium 132 L POC Potassium Carbon Dioxide POC BUN BUN 81 H Creatinine 5.8 H* POC Creatinine Glucose 115 H POC Glucose Hemoglobin A1c 6.5 H POC WB Ioniz Calcium AST 123 H ALT 105 H Alkaline Phosphatase 462 H Albumin 2.8 L Globulin Albumin/Globulin Ratio 0.8 L Procalcitonin Urine Protein Urine Ketones Urine Occult Blood Amorphous Crystals Urine Mucus 04/27/22 04/27/22 04/27/22 18:00 12:45 12:01 WBC 19.9 H RBC 3.73 L Hgb 10.9 L Hct 34.2 L POC Hct RDW 14.6 H Immature Gran % (Auto) 0.6 H Neut % (Auto) 90.8 H Lymph % (Auto) 2.7 L Anderson % (Auto) Lymph # (Auto) 0.54 L Anderson # (Auto) 1.05 H Immature Gran # 0.12 H Absolute Neutrophils 18.07 H POC VBG pCO2 at Temp Sodium POC Potassium Carbon Dioxide POC BUN BUN Creatinine POC Creatinine Glucose POC Glucose Hemoglobin A1c POC WB Ioniz Calcium AST ALT Alkaline Phosphatase Albumin Globulin Albumin/Globulin Ratio Procalcitonin 19.40 H Urine Protein 100 A Urine Ketones Trace A Urine Occult Blood Small A Amorphous Crystals Few A Urine Mucus Few A 04/27/22 04/27/22 11:59 11:56 WBC RBC Hgb Hct POC Hct 35.0 L RDW Immature Gran % (Auto) Neut % (Auto) Lymph % (Auto) Anderson % (Auto) Lymph # (Auto) Anderson # (Auto) Immature Gran # Absolute Neutrophils POC VBG pCO2 at Temp 39.1 L Sodium POC Potassium 3.0 L Carbon Dioxide POC BUN 70 H BUN Creatinine POC Creatinine 6.6 H* Glucose POC Glucose 125 H Hemoglobin A1c POC WB Ioniz Calcium 1.01 L AST ALT Alkaline Phosphatase Albumin Globulin Albumin/Globulin Ratio Procalcitonin Urine Protein Urine Ketones Urine Occult Blood Amorphous Crystals Urine Mucus Meds: Medications Acetaminophen (Acetaminophen 325 Mg Tablet) 650 mg PO Q6HP PRN; Protocol PRN Reason: Per Pain Protocol/Fever > 101 Last Admin: 04/30/22 02:30 Dose: 650 mg Albuterol/Ipratropium (Ipratropium/Albuterol 3 Ml Ampul.Neb) 3 ml NEB Q4HRT PRN PRN Reason: Wheezing Carvedilol (Carvedilol 3.125 Mg Tablet) 3.125 mg PO BIDCC [facility] Last Admin: 04/30/22 08:39 Dose: 3.125 mg Dextrose (Dextrose 50% 50 Ml Vial) 0 ml IV UD PRN PRN Reason: Per Sliding Scale Diagnostic Test (Pha) (Accu-Chek 1 Each Strip) 1 each FS [facility] Last Admin: 04/30/22 07:15 Dose: 1 each Docusate Sodium (Docusate Sodium 100 Mg Capsule) 100 mg PO BID [facility] Last Admin: 04/30/22 08:39 Dose: 100 mg Famotidine (Famotidine 20 Mg Tablet) 10 mg PO 2100 [facility] Last Admin: 04/29/22 19:59 Dose: 10 mg Glucose (Dextrose 31 Gm Oral.Susp) 15 gm PO PRN PRN PRN Reason: Hypoglycemia Heparin Sodium (Porcine) (Heparin 5,000 Unit/Ml Vial) 5,000 unit SQ Q12 [facility] Last Admin: 04/30/22 08:39 Dose: 5,000 unit Hydralazine HCl (Hydralazine 20 Mg/Ml Vial) 10 mg IV Q4HP PRN PRN Reason: Hypertension Last Admin: 04/30/22 03:57 Dose: 10 mg Piperacillin Sod/Tazobactam (Sod 2.25 gm/ Dextrose) 50 mls @ 100 mls/hr IV Q8H [facility] Last Admin: 04/30/22 05:30 Dose: 100 mls/hr Insulin Glargine (Insulin Glargine, Human 1 Unit/0.01 Ml) 10 unit SQ [facility] Last Admin: 04/29/22 20:10 Dose: 10 units Insulin Human Lispro (Insulin Lispro 1 Unit/0.01 Ml Unit) 0 unit SQ [facility]; Protocol Last Admin: 04/30/22 07:18 Dose: Not Given Ondansetron HCl (Ondansetron 4 Mg/2 Ml Vial) 4 mg IV Q6HP PRN PRN Reason: Nausea And Vomiting Senna (Sennosides 1 Tablet) 2 tab PO HS [facility] Last Admin: 04/29/22 19:58 Dose: 2 tab Sodium Chloride (0.9 % Sodium Chloride 10 Ml Syringe) 10 ml IV Q8 [facility] Last Admin: 04/30/22 05:30 Dose: 10 ml Tamsulosin HCl (Tamsulosin 0.4 Mg Capsule) 0.8 mg PO QDAY [facility] Last Admin: 04/30/22 08:38 Dose: 0.8 mg Trazodone HCl (Trazodone Hcl 50 Mg Tablet) 25 mg PO HSP PRN PRN Reason: Insomnia Vancomycin HCl (Vancomycin Per Pharmacy) 1 order IV UD [facility]; Protocol A/P Assessment and plan (1) Leukocytosis: Status: Acute (2) Essential hypertension: Status: Chronic (3) BPH (benign prostatic hyperplasia): Status: Acute (4) Mass of left lung: Status: Chronic Comment: See CT 12/2021 Needs tissue Dx (5) Anemia in ESRD (end-stage renal disease): Status: Chronic (6) Uncontrolled type 2 diabetes mellitus with ESRD (end-stage renal disease): Status: Acute (7) Fall: Status: Acute (8) Hypokalemia: Status: Acute Narrative A/P Narrative: Assessment and Plans: 1. Leukocytosis: DDx: bacterial infection, malignancy, trauma stress Inpatient med surg telemetry Consulting infectious disease, recs. appreciated Serial lactic acid 1.3 Blood culture, no growth to date Urine culture, no growth to date cbc w/ auto diff in the morning to trend WBC Saline lock Hold oral antihypertensives, and give Midodrine instead Vancomycin Ceftazidime 2. Fall: Likely secondary to general weakness/physical deconditioning from comorbidities, treat accordingly, see above and below Physical therapy evaluation and treatment 3. Left lung mass: Hold body CT w/o contrast so far do not see any distant metastasis Follow up with outpatient oncology, pending 4. T2DM with ESRD on hemodialysis TThSa: Consult Dr. Post nephrology for dialysis needs HgA1c 6.4 Hold any oral hypoglycemics Lantus 10 unit qPM Lispro SSI AC HS Accu Check AC HS Hypoglycemia protocol Diabetic/renal diet 5. Hypokalemia: RESOLVED Potassium chloride oral replacement CMP in the morning to trend serum potassium level Also check serum magnesium level and replace if needed 6. Benign prostatic hypertrophy: Continue Flomax 7. Essential hypertension: d/c Midodrine given elevated blood pressure GI ppx: Pepcid DVT ppx: Heparin Code status: Full Prognosis: Guarding Disposition: Inpatient med surg tele; PT Time Spent With Patient Time: Total time spent is greater than 50% in coordination of care (as documented) at patient's floor/unit and/or counseling patient: Subsequent: Total time with patient: 35 - 49 minutes QUALITY VTE Deep Vein Thrombosis/Pulmonary Embolism Present on Admission: Yes
--- NOTE | 2022-04-30 13:30 | Internal Med Progress Note ---
SUBJECTIVE Subjective Patient information: Note initiated : 04/30/22 at 1:20 pm Service Date, if different from initiated Date: [] Patient: Rito Fleming a 76 y/o M admitted on 04/30/22 for fall, syncope, low blood pressure. Chief Complaint: [] Principal diagnosis: Sepsis unknown source, leukocytosis Interval history: Mr. Fleming is a 76 year old M Thursday, type 2 diabetes mellitus, essential hypertensions, BPH, presenting with fall. He has been receiving hemodialysis for the past month we are dialysis catheter on his right chest wall. Last dialysis was yesterday. Earlier this morning he had l ightheadedness and he fell inside his bathroom where he spent the next 3 and half hours in the bathroom until he could crawl himself up and call ambulance to send to our ED for evaluation. CT of the head without contrast no acute abnormalities. He was showing orthostatic hypotension's. Labs Significant for leukocytosis with WBC 19.9, H&H 10.9 and 34.2, respectively. Chemistry significant for potassium level 3.0, serum creatinine level 6.6, procalcitonin level 19.4, and lactic acid 1.3. COVID and influenza screening negative. UA does not suggest the presence of urinary tract infections. A recent chest CT in March 2022 showing a large left upper lobe mass with mediastinal invasion. It was adjacent to the aortic arch. Chest x-ray today showing the same findings with no interval changes and no focal lung parenchymal infiltrate or metastases. CT of the abdomen pelvis without contrast today showing cholelithiasis without Lisa cystitis and no other acute abnormalities in the abdomen or pelvis. Admission request is called for weakness and leukocytosis and elevated procalcitonin level concerning for infections. 04/28: Hypokalemia resolved, repeat serum potassium level 4.8. WBC also down trended from 19.9 to 12.6. Patient has been afebrile overnight. Blood and urine cultures no growth to date. Latest set of blood pressure 108/52mmHg. body strength has improved. He is complaining of mild to moderate left jaw/inner ear pain. He denies any subjective fever, chills, or diaphoresis. He denies any lower back pain. He denies any nausea vomiting or diarrhea. Continue to work with physical therapy. Continue empiric antibiotics with vancomycin and Zosyn. Continue gentle IV fluid with normal saline at 75 cc/h. Continue to hold antihypertensives and will continue with midodrine instead. 04/29: Fever with Tmax 38.1 overnight. All cultures no growth to date. WBC 6.5 today. s/p Hemodialysis. Blood pressure elevated to 170/82mmHg. Patient is feeling wobbly after the dialysis sections. He denies any fever chills or diaphoresis. He denies any pain. DC midodrine as per environmental engineering aide recommendations. In terms of antibiotics, we will keep the vancomycin while stopping Zosyn and starting Ceftazidime as per ID recs. Continue to monitor for culture results. Keep saline lock. Physical therapy evaluation and treatment for placement planning. 04/30: Low grade fever Tmax 37.3 overnight. All cultures no growth to date. WBC 5.2 today. He is feeling fine this morning. Denies any fever, chills, or sweating this morning. c/o constipation. As per ID, continue Vancomycin/Ceftazidime. Continue to monitor for culture results. Keep saline lock. Physical therapy evaluation and treatment for placement planning. Switch to inpatient status. Constitutional Vitals: Vital Signs Temp Pulse Resp BP Pulse Ox O2 Del Method O2 Flow Rate 98.4 F 58 L 17 119/52 97 0 04/30/22 07:22 04/30/22 07:22 04/30/22 07:22 04/30/22 07:22 04/30/22 07:22 04/30/22 07:22 04/28/22 16:00 Period Temp Pulse Resp BP Sys/Nielsen Pulse Ox O2 Del Method O2 Flow Rate Last 24 Hr 97.4 F-99.1 F 52-61 14-18 119-194/52-90 97-100 Room Air-Room Air Intake and Output 04/30/22 04/30/22 04/30/22 03:59 11:59 19:59 Intake Total 450 50 Output Total 125 Balance 325 50 Intake & Output: Intake & Output 04/30/22 04/30/22 04/30/22 03:59 11:59 19:59 Intake Total 450 50 Output Total 125 Balance 325 50 Intake: IV 50 50 Zosyn 2.25 gm In Dextrose 5% in 50 50 Water 50 ml @ 100 mls/hr IV Q8H [facility] Rx#:[id number] Oral 400 Output: Void Amount 125 Other: Urine Appearance Clear Urine Color Yellow # Voids 1 1 Exam: General: Alert, Awake, No acute Distress Eyes/N/T: EOMI, Head/Neck: neck supple, CV: RRR, No murmurs, Pulm: Clear b/l, no wheezing/rhonchi/rales Abd: soft, nontender, +BS x4 Ext: no clubbing/cyanosis/edema Neuro: Alert, no focal deficits, moves all extremities, Skin: warm/dry OBJ DATA Labs CBC & Chem 7: 04/30/22 05:39 04/30/22 05:39 Labs: Abnormal Lab Results 04/30/22 04/30/22 04/29/22 05:39 05:39 05:16 WBC RBC 3.40 L Hgb 9.8 L Hct 31.2 L RDW 14.8 H Immature Gran % (Auto) 0.8 H Neut % (Auto) Lymph % (Auto) Casey % (Auto) 16.2 H Lymph # (Auto) 0.99 L Casey # (Auto) Immature Gran # Absolute Neutrophils Sodium 132 L Carbon Dioxide 21 L BUN 49 H 80 H Creatinine 3.9 H 6.0 H* Glucose 109 H Hemoglobin A1c AST 60 H 75 H ALT 69 H 82 H Alkaline Phosphatase 493 H 430 H Albumin 2.8 L 2.6 L Globulin 3.8 H Albumin/Globulin Ratio 0.8 L 0.7 L Procalcitonin Urine Protein Urine Ketones Urine Occult Blood Amorphous Crystals Urine Mucus 04/29/22 04/28/22 04/28/22 05:16 05:48 05:47 WBC 12.6 H RBC 3.41 L 3.48 L Hgb 10.0 L 10.1 L Hct 31.5 L 32.6 L RDW 14.8 H 14.9 H Immature Gran % (Auto) Neut % (Auto) 83.7 H Lymph % (Auto) 12.4 L 6.7 L Casey % (Auto) Lymph # (Auto) 0.80 L 0.84 L Casey # (Auto) 1.03 H Immature Gran # 0.06 H Absolute Neutrophils 10.55 H Sodium 132 L Carbon Dioxide BUN 81 H Creatinine 5.8 H* Glucose 115 H Hemoglobin A1c 6.5 H AST 123 H ALT 105 H Alkaline Phosphatase 462 H Albumin 2.8 L Globulin Albumin/Globulin Ratio 0.8 L Procalcitonin Urine Protein Urine Ketones Urine Occult Blood Amorphous Crystals Urine Mucus 04/27/22 04/27/22 18:00 12:45 WBC RBC Hgb Hct RDW Immature Gran % (Auto) Neut % (Auto) Lymph % (Auto) Casey % (Auto) Lymph # (Auto) Casey # (Auto) Immature Gran # Absolute Neutrophils Sodium Carbon Dioxide BUN Creatinine Glucose Hemoglobin A1c AST ALT Alkaline Phosphatase Albumin Globulin Albumin/Globulin Ratio Procalcitonin 19.40 H Urine Protein 100 A Urine Ketones Trace A Urine Occult Blood Small A Amorphous Crystals Few A Urine Mucus Few A Meds: Medications Acetaminophen (Acetaminophen 325 Mg Tablet) 650 mg PO Q6HP PRN; Protocol PRN Reason: Per Pain Protocol/Fever > 101 Last Admin: 04/30/22 02:30 Dose: 650 mg Albuterol/Ipratropium (Ipratropium/Albuterol 3 Ml Ampul.Neb) 3 ml NEB Q4HRT PRN PRN Reason: Wheezing Carvedilol (Carvedilol 3.125 Mg Tablet) 3.125 mg PO BIDCC [facility] Last Admin: 04/30/22 08:39 Dose: 3.125 mg Ceftazidime (Ceftazidime 2 Gm Vial) 2 gm IV Th [facility] Stop: 05/01/22 23:00 Dextrose (Dextrose 50% 50 Ml Vial) 0 ml IV UD PRN PRN Reason: Per Sliding Scale Diagnostic Test (Pha) (Accu-Chek 1 Each Strip) 1 each FS ACHS [facility] Last Admin: 04/30/22 11:34 Dose: 1 each Docusate Sodium (Docusate Sodium 100 Mg Capsule) 100 mg PO BID [facility] Last Admin: 04/30/22 08:39 Dose: 100 mg Famotidine (Famotidine 20 Mg Tablet) 10 mg PO 2100 [facility] Last Admin: 04/29/22 19:59 Dose: 10 mg Glucose (Dextrose 31 Gm Oral.Susp) 15 gm PO PRN PRN PRN Reason: Hypoglycemia Heparin Sodium (Porcine) (Heparin 5,000 Unit/Ml Vial) 5,000 unit SQ Q12 [facility] Last Admin: 04/30/22 08:39 Dose: 5,000 unit Hydralazine HCl (Hydralazine 20 Mg/Ml Vial) 10 mg IV Q4HP PRN PRN Reason: Hypertension Last Admin: 04/30/22 03:57 Dose: 10 mg Ceftazidime 3 gm/ Sodium (Chloride) 100 mls @ 200 mls/hr IV ONCE [facility] Stop: 05/03/22 23:00 Insulin Glargine (Insulin Glargine, Human 1 Unit/0.01 Ml) 10 unit SQ HS [facility] Last Admin: 04/29/22 20:10 Dose: 10 units Insulin Human Lispro (Insulin Lispro 1 Unit/0.01 Ml Unit) [address] [facility]; Protocol Last Admin: 04/30/22 11:46 Dose: 6 units Ondansetron HCl (Ondansetron 4 Mg/2 Ml Vial) 4 mg IV Q6HP PRN PRN Reason: Nausea And Vomiting Senna (Sennosides 1 Tablet) 2 tab PO HS [facility] Last Admin: 04/29/22 19:58 Dose: 2 tab Sodium Chloride (0.9 % Sodium Chloride 10 Ml Syringe) 10 ml IV Q8 [facility] Last Admin: 04/30/22 05:30 Dose: 10 ml Tamsulosin HCl (Tamsulosin 0.4 Mg Capsule) 0.8 mg PO QDAY [facility] Last Admin: 04/30/22 08:38 Dose: 0.8 mg Trazodone HCl (Trazodone Hcl 50 Mg Tablet) 25 mg PO HSP PRN PRN Reason: Insomnia Vancomycin HCl (Vancomycin Per Pharmacy) 1 order IV UD [facility]; Protocol A/P Narrative A/P Narrative: Assessment and Plans: *Leukocytosis/?sepsis: -DDx: bacterial infection, malignancy, trauma stress -Consulting infectious disease, recs. appreciated -Blood culture, no growth to date, Urine culture, no growth to date -cbc w/ auto diff in the morning to trend WBC -Vancomycin , Ceftazidime to finish 5-day course from 17th *Fall 2/2 general weakness/physical deconditioning from comorbidities -Physical therapy evaluation and treatment *Left lung mass: known mass as of October 2021 at [facility] -whole body CT w/o contrast so far do not see any distant metastasis, -Follow up with outpatient oncology *T2DM -HgA1c 6.4 -Lantus 10 unit qPM, ssi *ESRD on hemodialysis TThSa: -Consult Dr. Post nephrology for dialysis needs *Anemia, chronic: *Chronic diastolic heart failure: stable *Moderate aortic stenosis: *Hypokalemia: -Potassium chloride oral replacement, CMP in the morning to trend serum p otassium level *Benign prostatic hypertrophy: Continue Flomax *Essential hypertension: *Sinus bradycardia: has history of and was taken off diltiazem in past, still on BB which is now held *CHELY: *ppx: Heparin / home H2 Time Spent With Patient Time: Total time spent is greater than 50% in coordination of care (as documented) at patient's floor/unit and/or counseling patient: QUALITY VTE Deep Vein Thrombosis/Pulmonary Embolism Present on Admission: Yes
[2022-04-30] MEDS: FAMOTIDINE 20 MG TABLET PO SCH (20:18)
[2022-04-30] MEDS: INSULIN GLARGINE, HUMAN 1 UNIT/0.01 ML SQ SCH (20:18)
[2022-04-30] MEDS: SENNOSIDES 1 TABLET PO SCH (20:19)
[2022-05-01] MEDS: hydrALAZINE 20 MG/ML VIAL IV PRN ×3 (00:10→23:01)
[2022-05-01] MEDS: 0.9 % SODIUM CHLORIDE 10 ML SYRINGE IV SCH ×4 (06:10→21:18)
--- NOTE | 2022-05-01 07:41 | Internal Med Progress Note ---
SUBJECTIVE Subjective Patient information: Note initiated : 05/01/22 at 7:36 am Service Date, if different from initiated Date: [] Patient: Rito Fleming a 76 y/o M admitted on 04/30/22 for fall, syncope, low blood pressure. Chief Complaint: [] Principal diagnosis: Sepsis unknown source, leukocytosis Interval history: Mr. Fleming is a 76 year old M Thursday, type 2 diabetes mellitus, essential hypertensions, BPH, presenting with fall. He has been receiving hemodialysis for the past month we are dialysis catheter on his right chest wall. Last dialysis was yesterday. Earlier this morning he had l ightheadedness and he fell inside his bathroom where he spent the next 3 and half hours in the bathroom until he could crawl himself up and call ambulance to send to our ED for evaluation. CT of the head without contrast no acute abnormalities. He was showing orthostatic hypotension's. Labs Significant for leukocytosis with WBC 19.9, H&H 10.9 and 34.2, respectively. Chemistry significant for potassium level 3.0, serum creatinine level 6.6, procalcitonin level 19.4, and lactic acid 1.3. COVID and influenza screening negative. UA does not suggest the presence of urinary tract infections. A recent chest CT in March 2022 showing a large left upper lobe mass with mediastinal invasion. It was adjacent to the aortic arch. Chest x-ray today showing the same findings with no interval changes and no focal lung parenchymal infiltrate or metastases. CT of the abdomen pelvis without contrast today showing cholelithiasis without Lisa cystitis and no other acute abnormalities in the abdomen or pelvis. Admission request is called for weakness and leukocytosis and elevated procalcitonin level concerning for infections. 04/28: Hypokalemia resolved, repeat serum potassium level 4.8. WBC also down trended from 19.9 to 12.6. Patient has been afebrile overnight. Blood and urine cultures no growth to date. Latest set of blood pressure 108/52mmHg. body strength has improved. He is complaining of mild to moderate left jaw/inner ear pain. He denies any subjective fever, chills, or diaphoresis. He denies any lower back pain. He denies any nausea vomiting or diarrhea. Continue to work with physical therapy. Continue empiric antibiotics with vancomycin and Zosyn. Continue gentle IV fluid with normal saline at 75 cc/h. Continue to hold antihypertensives and will continue with midodrine instead. 04/29: Fever with Tmax 38.1 overnight. All cultures no growth to date. WBC 6.5 today. s/p Hemodialysis. Blood pressure elevated to 170/82mmHg. Patient is feeling wobbly after the dialysis sections. He denies any fever chills or diaphoresis. He denies any pain. DC midodrine as per cassandra consultant recommendations. In terms of antibiotics, we will keep the vancomycin while stopping Zosyn and starting Ceftazidime as per ID recs. Continue to monitor for culture results. Keep saline lock. Physical therapy evaluation and treatment for placement planning. 04/30: Low grade fever Tmax 37.3 overnight. All cultures no growth to date. WBC 5.2 today. He is feeling fine this morning. Denies any fever, chills, or sweating this morning. c/o constipation. As per ID, continue Vancomycin/Ceftazidime. Continue to monitor for culture results. Keep saline lock. Physical therapy evaluation and treatment for placement planning. Switch to inpatient status. 05/01 Patient states he slept well and is feeling all right today. Patient hypertensive and bradycardic. Beta-mercedes stopped and home Norvasc restarted. Patient getting dialysis today. course of vancomycin and ceftazidime per ID. Review of Systems: denies headache/fever/chills/nausea/vomiting/chest or abdominal pain/ cough/dyspnea/diarrhea. Otherwise see above. Constitutional Vitals: Vital Signs Temp Pulse Resp BP Pulse Ox O2 Del Method O2 Flow Rate 98.6 F 49 L 13 121/55 96 0 05/01/22 05:32 04/30/22 20:02 05/01/22 05:56 05/01/22 05:32 05/01/22 05:32 05/01/22 05:32 05/01/22 05:32 Period Temp Pulse Resp BP Sys/Nielsen Pulse Ox O2 Del Method O2 Flow Rate Last 24 Hr 97.1 F-98.6 F 41-62 10-21 121-212/53-104 96-100 Room Air-Room Air 0-0 Intake and Output 01/18/23 01/19/23 01/19/23 19:59 03:59 11:59 Intake Total 480 325 Output Total 500 1 Balance -20 324 Weight 83.007 kg Intake & Output: Intake & Output 04/30/22 05/01/22 05/01/22 19:59 03:59 11:59 Intake Total 480 325 Output Total 500 1 Balance -20 324 Weight 83.007 kg Intake: Oral 480 325 Output: Void Amount 500 # of times incontinent of urine 1 Other: Meal Dinner Percent of Meal Consumed 100% Feeding Ability Independent Urine Appearance Clear Urine Color Yellow Stool Size Small Moderate Stool Color Brown Brown Stool Consistency Soft Soft # Voids 1 1 1 # Bowel Movements 1 1 # of times incontinent of 1 Bowels Exam: General: Alert, Awake, No acute Distress Eyes/N/T: EOMI, Head/Neck: neck supple, CV: RRR, 2/6 SM Pulm: Clear b/l, no wheezing/rhonchi/rales Abd: soft, nontender, +BS x4 Ext: no clubbing/cyanosis/edema Neuro: Alert, no focal deficits, moves all extremities, Skin: warm/dry OBJ DATA Labs CBC & Chem 7: 04/30/22 05:39 04/30/22 05:39 Labs: Abnormal Lab Results 04/30/22 04/30/22 04/29/22 05:39 05:39 05:16 RBC 3.40 L Hgb 9.8 L Hct 31.2 L RDW 14.8 H Immature Gran % (Auto) 0.8 H Lymph % (Auto) Treasure % (Auto) 16.2 H Lymph # (Auto) 0.99 L Sodium 132 L Carbon Dioxide 21 L BUN 49 H 80 H Creatinine 3.9 H 6.0 H* Glucose 109 H Hemoglobin A1c AST 60 H 75 H ALT 69 H 82 H Alkaline Phosphatase 493 H 430 H Albumin 2.8 L 2.6 L Globulin 3.8 H Albumin/Globulin Ratio 0.8 L 0.7 L 04/29/22 04/28/22 05:16 05:47 RBC 3.41 L Hgb 10.0 L Hct 31.5 L RDW 14.8 H Immature Gran % (Auto) Lymph % (Auto) 12.4 L [place] % (Auto) Lymph # (Auto) 0.80 L Sodium Carbon Dioxide BUN Creatinine Glucose Hemoglobin A1c 6.5 H AST ALT Alkaline Phosphatase Albumin Globulin Albumin/Globulin Ratio Meds: Medications Acetaminophen (Acetaminophen 325 Mg Tablet) 650 mg PO Q6HP PRN; Protocol PRN Reason: Per Pain Protocol/Fever > 101 Last Admin: 04/30/22 20:00 Dose: 650 mg Albuterol/Ipratropium (Ipratropium/Albuterol 3 Ml Ampul.Neb) 3 ml NEB Q4HRT PRN PRN Reason: Wheezing Ceftazidime (Ceftazidime 2 Gm Vial) 2 gm IV Th [facility] Stop: 05/01/22 23:00 Dextrose (Dextrose 50% 50 Ml Vial) 0 ml IV UD PRN PRN Reason: Per Sliding Scale Diagnostic Test (Pha) (Accu-Chek 1 Each Strip) 1 each FS ACHS [facility] Last Admin: 04/30/22 20:17 Dose: 1 each Docusate Sodium (Docusate Sodium 100 Mg Capsule) 100 mg PO BID [facility] Last Admin: 04/30/22 20:38 Dose: Not Given Famotidine (Famotidine 20 Mg Tablet) 10 mg PO 2100 [facility] Last Admin: 04/30/22 20:18 Dose: 10 mg Glucose (Dextrose 31 Gm Oral.Susp) 15 gm PO PRN PRN PRN Reason: Hypoglycemia Heparin Sodium (Porcine) (Heparin 5,000 Unit/Ml Vial) 5,000 unit SQ Q12 [facility] Last Admin: 04/30/22 20:18 Dose: 5,000 unit Hydralazine HCl (Hydralazine 20 Mg/Ml Vial) 0 mg IV Q2HP PRN PRN Reason: Hypertension Last Admin: 05/01/22 00:10 Dose: 10 mg Ceftazidime 3 gm/ Sodium (Chloride) 100 mls @ 200 mls/hr IV ONCE [facility] Stop: 05/03/22 23:00 Insulin Glargine (Insulin Glargine, Human 1 Unit/0.01 Ml) 10 unit SQ [facility] Last Admin: 04/30/22 20:18 Dose: 10 units Insulin Human Lispro (Insulin Lispro 1 Unit/0.01 Ml Unit) 0 unit SQ [facility]; Protocol Last Admin: 04/30/22 20:17 Dose: 2 units Ondansetron HCl (Ondansetron 4 Mg/2 Ml Vial) 4 mg IV Q6HP PRN PRN Reason: Nausea And Vomiting Senna (Sennosides 1 Tablet) 2 tab PO [facility] Last Admin: 04/30/22 20:19 Dose: Not Given Sodium Chloride (0.9 % Sodium Chloride 10 Ml Syringe) 10 ml IV Q8 [facility] Last Admin: 05/01/22 06:10 Dose: 10 ml Tamsulosin HCl (Tamsulosin 0.4 Mg Capsule) 0.8 mg PO QDAY [facility] Last Admin: 04/30/22 08:38 Dose: 0.8 mg Trazodone HCl (Trazodone Hcl 50 Mg Tablet) 25 mg PO HSP PRN PRN Reason: Insomnia Vancomycin HCl (Vancomycin Per Pharmacy) 1 order IV UD [facility]; Protocol A/P Narrative A/P Narrative: Assessment and Plans: *Leukocytosis/?sepsis: resolved -DDx: bacterial infection, malignancy, trauma stress -ID following, recs. appreciated -Blood culture, no growth to date, Urine culture, no growth to date -cbc w/ auto diff in the morning to trend WBC -Vancomycin/Ceftazidime to finish 5-day course to finish on per ID *Fall 2/2 general weakness/physical deconditioning from comorbidities -Physical therapy evaluation and treatment *Left lung mass: known mass as of October 2021 at [facility] -whole body CT w/o contrast so far do not see any distant metastasis, -Follow up with outpatient oncology *T2DM -HgA1c 6.4 -Lantus 10 unit qPM, ssi *ESRD on hemodialysis TThSa: -Consult Dr. Post nephrology for dialysis needs *Anemia, chronic: *Chronic diastolic heart failure: stable *Moderate aortic stenosis: *Hypokalemia: -Potassium chloride oral replacement, CMP in the morning to trend serum potassium level *Benign prostatic hypertrophy: Continue Flomax *Essential hypertension with hypotension initially: restart norvasc, hold BB for michelle *Sinus bradycardia: has history of and was taken off diltiazem in past, still on BB which is now held *CHELY: *ppx: Heparin / home H2 Time Spent With Patient Time: Total time spent is greater than 50% in coordination of care (as documented) at patient's floor/unit and/or counseling patient: Subsequent: Total time with patient: 50 - 65 Minutes QUALITY VTE Deep Vein Thrombosis/Pulmonary Embolism Present on Admission: Yes
[2022-05-01] MEDS: INSULIN LISPRO 1 UNIT/0.01 ML UNIT SQ SCH ×4 (07:44→21:17)
--- NOTE | 2022-05-01 07:44 | Nephrology Progress Note ---
SUBJECTIVE Subjective Patient information: Note initiated : 05/01/22 at 7:41 am Patient: Rito Fleming 76 y/o M admitted on 04/30/22 for fall, syncope, low blood pressure. Chief Complaint: Weakness Principal diagnosis: Sepsis unknown source, leukocytosis Pertinent ROS: Weakness Constitutional Vitals: Vital Signs Temp Pulse Resp BP Pulse Ox O2 Del Method O2 Flow Rate 98.6 F 49 L 13 121/55 96 0 05/01/22 05:32 04/30/22 20:02 05/01/22 05:56 05/01/22 05:32 05/01/22 05:32 05/01/22 05:32 05/01/22 05:32 Period Temp Pulse Resp BP Sys/Nielsen Pulse Ox O2 Del Method O2 Flow Rate Last 24 Hr 97.1 F-98.6 F 41-62 10-21 121-212/53-104 96-100 Room Air-Room Air 0-0 Intake and Output 04/30/22 05/01/22 05/01/22 19:59 03:59 11:59 Intake Total 480 325 Output Total 500 1 Balance -20 324 Weight 183 lb Intake & Output: Intake & Output 04/30/22 05/01/22 05/01/22 19:59 03:59 11:59 Intake Total 480 325 Output Total 500 1 Balance -20 324 Weight 183 lb Intake: Oral 480 325 Output: Void Amount 500 # of times incontinent of urine 1 Other: Meal Dinner Percent of Meal Consumed 100% Feeding Ability Independent Urine Appearance Clear Urine Color Yellow Stool Size Small Moderate Stool Color Brown Brown Stool Consistency Soft Soft # Voids 1 1 1 # Bowel Movements 1 1 # of times incontinent of 1 Bowels General appearance: cooperative and no acute distress Head Head exam: Present normal inspection Eye Eye exam: Present normal appearance ENT ENT exam: Present mucous membranes moist Respiratory Respiratory exam: Absent respiratory distress Cardiovascular Cardiovascular exam: Present normal rate and rhythm GI/Abdominal GI/Abdominal exam: Present soft; Absent tenderness Extremities Exam Extremities exam: Absent joint swelling or pedal edema Neurological Exam Neurological exam: Present alert and oriented X3 Psychiatric Psychiatric exam: Present normal affect and normal mood Skin Skin exam: Present warm; Absent rash A/P Assessment and plan (1) ESRD on hemodialysis: Assessment and plan: Rito Fleming is a 76-year-old male with end stage renal disease on hemodialysis, chronic anemia due to ESRD, HFpEF, moderate aortic stenosis, hypertension, diabetes mellitus type 2 admitted on 04/27/22. He was presented to ED for lightheadedness. He fell in his bathroom where he spent the next 3 and half hours until he could crawl himself up and call an ambulance. In ED, he had orthostatic hypotension. Labs were significant for leukocytosis with WBC 19.9, procalcitonin level 19.4, and lactic acid 1.3. COVID and influenza screen negative. Nephrology consultation was requested for end stage renal disease. End stage renal disease on chronic hemodialysis on TTS at [facility]. Tunneled HD catheter. Chronic anemia due to ESRD. Sepsis with leukocytosis and procalcitonin elevation with Tmax 100.6 on 04/28/22. ID consult done on 04/28/22. No obvious source identified. Hypotension associated with sepsis. Liver enzyme elevation, new, mild, associated with sepsis. 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 Pulmonary arterial hypertension by CT on 03/17/22. Workup: CT Abdomen and Pelvis on 04/27/22: Atrophy of both kidneys consistent with chronic diabetes. Cholelithiasis without cholecystitis. No acute abnormality in the abdomen or pelvis. CXR on 04/27/22: Stable tumor adjacent to the aortic arch and no acute abnor mality. Blood culture on 04/27/22: No growth so far. Progress: ID recommendations: Complete 5 days total Vancomycin 1,500mg IV TIW after HD; keep trough level between 15-20 Discontinue Zosyn; complete remaining 5 day course with Ceftazidime 2g IV on and 3g IV on Thursday post HD Hypotension improved after Amlodipine, Carvedilol and Furosemide held as well as Midodrine and IVF administered. Carvedilol 3.125 mg twice daily resumed for hypertension on 04/30/22, but discontinued due to bradycardia. Toradol discontinued to prevent acute kidney injury of residual kidney function. Statins discontinued for liver enzyme elevation. Hyponatremia and metabolic acidosis, mild associated with ESRD, resolved with hemodialysis. Hypokalemia, resolved after supplementation. Adjustment of dialysate potassium may be needed. Last hemodialysis on 04/29/22. Recommendations/Plan: Hemodialysis today. The patient seen and evaluated during hemodialysis. Amlodipine will be resumed after hemodialysis as 5 mg daily. Discharge planning: Adjustment of outpatient dialysate potassium may be needed. IV antibiotics after discharge will need to be scheduled at Med-Surg unit after outpatient hemodialysis. Tunneled dialysis catheter may be accessed and de- accessed by hemodialysis staff. Home medications supplied by [facility] as pre-packed will require update. Status: Chronic Time Spent With Patient Time: Total time spent is greater than 50% in coordination of care (as documented) at patient's floor/unit and/or counseling patient:
[2022-05-01] MEDS: DOCUSATE SODIUM 100 MG CAPSULE PO SCH ×2 (08:15→21:17)
[2022-05-01] MEDS: TAMSULOSIN 0.4 MG CAPSULE PO SCH (08:15)
[2022-05-01] MEDS: HEPARIN 5,000 UNIT/ML VIAL SQ SCH ×2 (08:15→21:17)
[2022-05-01] MEDS ORDERED: amLODIPine 5 MG TABLET PO SCH ×2 (09:00)
--- NOTE | 2022-05-01 13:49 | Discharge Summary ---
Discharge Provider Provider IMPORTANT FOLLOW-UP INFORMATION FOR PCP: Patient information: Note initiated : 05/01/22 at 1:47 pm Service Date, if different from initiated Date: [] Patient: Rito Fleming 76 y/o M admitted on 04/30/22 for fall, syncope, low blood pressure. Chief Complaint: [] Date of admission: 04/30/22 09:49 Discharge date: 05/02/22 Primary care physician: RUT Campos Consults: 04/27/22 Consult to Physician [CONS] Stat Comment: Consulting Provider: Jaun Post Reason For Exam: Physician to Consult Consult to Physician [CONS] Stat Comment: Consulting Provider: Luther Fields Reason For Exam: Physician to Consult 04/28/22 15:00 Consult to Physician [CONS] Routine Comment: leukocytosis, elevated procalcitonin, hypotensive Consulting Provider: Jelani Velez - ID Reason For Exam: Physician to Consult COURSE Hospital Course Hospital course: Principal diagnosis: Sepsis unknown source, leukocytosis Interval history: Mr. Fleming is a 76 year old M Thursday, type 2 diabetes mellitus, essential hypertensions, BPH, presenting with fall. He has been receiving hemodialysis for the past month we are dialysis catheter on his right chest wall. Last dialysis was yesterday. Earlier this morning he had lightheadedness and he fell inside his bathroom where he spent the next 3 and half hours in the bathroom until he could crawl himself up and call ambulance to send to our ED for evaluation. CT of the head without contrast no acute abnormalities. He was showing orthostatic hypotension's. Labs Significant for leukocytosis with WBC 19.9, H&H 10.9 and 34.2, respectively. Chemistry significant for potassium level 3.0, serum creatinine level 6.6, procalcitonin level 19.4, and lactic acid 1.3. COVID and influenza screening negative. UA does not suggest the presence of urinary tract infections. A recent chest CT in March 2022 showing a large left upper lobe mass with mediastinal invasion. It was adjacent to the aortic arch. Chest x-ray today showing the same findings with no interval changes and no focal lung parenchymal infiltrate or metastases. CT of the abdomen pelvis without contrast today showing cholelithiasis without Lisa cystitis and no other acute abnormalities in the abdomen or pelvis. Admission request is called for weakness and leukocytosis and elevated procalcitonin level concerning for infections. 04/28: Hypokalemia resolved, repeat serum potassium level 4.8. WBC also down trended from 19.9 to 12.6. Patient has been afebrile overnight. Blood and urine cultures no growth to date. Latest set of blood pressure 108/52mmHg. body strength has improved. He is complaining of mild to moderate left jaw/inner ear pain. He denies any subjective fever, chills, or diaphoresis. He denies any lower back pain. He denies any nausea vomiting or diarrhea. Continue to work with physical therapy. Continue empiric antibiotics with vancomycin and Zosyn. Continue gentle IV fluid with normal saline at 75 cc/h. Continue to hold antihypertensives and will continue with midodrine instead. 04/29: Fever with Tmax 38.1 overnight. All cultures no growth to date. WBC 6.5 today. s/p Hemodialysis. Blood pressure elevated to 170/82mmHg. Patient is feeling wobbly after the dialysis sections. He denies any fever chills or diaphoresis. He denies any pain. DC midodrine as per vp of global marketing recommendations. In terms of antibiotics, we will keep the vancomycin while stopping Zosyn and starting Ceftazidime as per ID recs. Continue to monitor for culture results. Keep saline lock. Physical therapy evaluation and treatment for placement planning. 04/30: Low grade fever Tmax 37.3 overnight. All cultures no growth to date. WBC 5.2 today. He is feeling fine this morning. Denies any fever, chills, or sweating this morning. c/o constipation. As per ID, continue Vancomycin/Ceftazidime. Continue to monitor for culture results. Keep saline lock. Physical therapy evaluation and treatment for placement planning. Switch to inpatient status. 05/01 Patient states he slept well and is feeling all right today. Patient hypertensive and bradycardic. Beta-mercedes stopped and home Norvasc restarted. Patient getting dialysis today. course of vancomycin and ceftazidime per ID. 05/02 Patient doing well. No overnight event or new complaints. Patient stable for discharge. Assessment and Plans: *Leukocytosis/?sepsis: resolved -Vancomycin/Ceftazidime to finish 5-day course to finish on per ID *Fall 2/2 general weakness/physical deconditioning from comorbidities *Left lung mass: known mass as of October 2021 at [facility] -whole body CT w/o contrast so far do not see any distant metastasis, -Follow up with outpatient oncology *T2DM *ESRD on hemodialysis TThSa: *Anemia, chronic: *Chronic diastolic heart failure: stable *Moderate aortic stenosis: *Hypokalemia: *Benign prostatic hypertrophy: Continue Flomax *Essential hypertension with hypotension initially: restart norvasc, hold BB for michelle *Sinus bradycardia: has history of and was taken off diltiazem in past, still on BB which is now held *CHELY: Discharge diagnosis: Leukocytosis questional sepsis weakness falling deconditioning Secondary discharge diagnosis: End-stage renal disease lung mass diabetes chronic anemia diastolic heart failure aortic stenosis hypokalemia hypertensionbradycardia Time Spent with Patient Time attestation: Total time spent providing and/or coordinating discharge services: Time spent: Greater than 30 minutes EXAM Constitutional Vitals: Temp Pulse Resp BP Pulse Ox O2 Del Method O2 Flow Rate 97.3 F 70 14 99/62 99 0 05/01/22 10:45 05/01/22 13:27 05/01/22 08:00 05/01/22 13:27 05/01/22 08:00 05/01/22 08:00 05/01/22 05:32 Discharge Data Data Completed and Pending Labs on day of discharge: Preliminary micro results at discharge 04/27/22 19:40 Blood Culture - Preliminary Blood 04/27/22 19:34 Blood Culture - Preliminary Blood Discharge Plan Patient/Caregiver Discharge Instructions Activity: increase activity as tolerated Diet: Renal Activity Restrictions/Additional Instructions: Follow-up with nephrology outpatient IV vanco per pharmacy/nephrology after HD on and stop IV Ceftazidime 3gm IV after HD on Thursday snd stop Take antibiotics after hemodialysis. The examination and treatment you received in the emergency department today was on an emergency basis only. Care in the emergency department does not replace regular care with a primary care provider. Please follow-up with your primary care provider regarding the emergency department visit. Please also discuss this with your vp of global marketing tomorrow when you go to your dialysis that you are being treated with these antibiotics for pneumonia. Return to ER if you have important symptoms or findings such as significant or major: -Abdominal pain -Chest pain -Shortness of breath -Bleeding -Unexplained fever -Unexplained weakness or numbness of one side of her body, difficulty speaking, or sudden loss of vision (stroke symptoms) -Sudden new "Thunderclap" headache, OR other significant problems or symptoms Prescriptions: New ceftazidime 2 gram recon soln 3 g IV ONCE Qty: 10 0RF Rx Instructions: To take after HD session no thursday Continued insulin glargine [Basaglar KwikPen U-100 Insulin] 100 unit/mL (3 mL) insulin pen 10 unit subcut QPM Qty: 15 3RF Rx Instructions: Replaces oral hypoglycemics due to prolonged low BG (DME) pen needle, diabetic [Lite Touch Insulin Pen Foster] 31 gauge x 5/16" needle See Rx Instructions .Route Qty: 100 3RF Rx Instructions: As directed amlodipine 5 mg tablet 1 tab PO QDAY famotidine 20 mg tablet 1 tab PO BID pravastatin 10 mg tablet 1 tab PO QDAY tamsulosin 0.4 mg capsule 2 cap PO QDAY furosemide 20 mg tablet 1 tab PO BID Discontinued carvedilol 3.125 mg tablet 1 tab PO BID Follow Up Plan Follow up with: Elizabeth Heredia ARNP [Primary Care Provider] - Patient Disposition: Home, Self-Care Prognosis: Undetermined Rehab Potential: Fair Overall status at discharge: patient is progressing back to baseline Discharge Orders: Discharge Order (Routine); Ordered 05/02/22 Ordered By: Noe Laureano [facility] Deep Vein Thrombosis/Pulmonary Embolism Present on Admission: Yes
[2022-05-01] MEDS: ACETAMINOPHEN 325 MG TABLET PO PRN (15:45)
[2022-05-01] MEDS ORDERED: VANCOMYCIN 1,500 MG in 0.9 % SODIUM CHLORIDE 500 ML IV ONE (17:00)
[2022-05-01] MEDS: SENNOSIDES 1 TABLET PO SCH (21:05)
[2022-05-01] MEDS: INSULIN GLARGINE, HUMAN 1 UNIT/0.01 ML SQ SCH (21:16)
[2022-05-01] MEDS: FAMOTIDINE 20 MG TABLET PO SCH (21:18)
[2022-05-02] MEDS: hydrALAZINE 20 MG/ML VIAL IV PRN (03:50)
[2022-05-02] MEDS: ACETAMINOPHEN 325 MG TABLET PO PRN (03:50)
--- NOTE | 2022-05-02 06:35 | Nephrology Progress Note ---
SUBJECTIVE Subjective Patient information: Note initiated : 05/02/22 at 6:34 am Patient: Rito Fleming 76 y/o M admitted on 04/30/22 for fall, syncope, low blood pressure. Chief Complaint: WSeakness Principal diagnosis: Sepsis unknown source, leukocytosis Pertinent ROS: Feels better Constitutional Vitals: Vital Signs Temp Pulse Resp BP Pulse Ox O2 Del Method O2 Flow Rate 98.5 F 62 16 127/50 97 Room Air 0 05/02/22 03:50 05/02/22 03:50 05/02/22 03:50 05/02/22 05:45 05/02/22 03:50 05/02/22 03:50 05/01/22 05:32 Period Temp Pulse Resp BP Sys/Nielsen Pulse Ox O2 Del Method O2 Flow Rate Last 24 Hr 97.0 F-98.5 F 54-70 14-16 99-181/48-79 97-99 Room Air-Room Air Intake and Output 05/01/22 05/02/22 05/02/22 19:59 03:59 11:59 Intake Total 740 100 Output Total 2750 125 Weight 183 lb 179 lb 12.8 oz Intake & Output: Intake & Output 05/01/22 05/02/22 05/02/22 19:59 03:59 11:59 Intake Total 740 100 Output Total 2750 125 Weight 183 lb 179 lb 12.8 oz Intake: IV 500 Vancomycin 1,500 mg In Sodium 500 Chloride 0.9% 500 ml @ 333.3 mls/hr IV ONCE ONE Rx#: [id number] Oral 240 100 Output: Void Amount 150 125 Hemodialysis UF 2600 Other: Urine Appearance Clear Clear Urine Color Bright Yellow Yellow General appearance: cooperative and no acute distress Head Head exam: Present normal inspection Eye Eye exam: Present normal appearance ENT ENT exam: Present mucous membranes moist Respiratory Respiratory exam: Absent respiratory distress Cardiovascular Cardiovascular exam: Present normal rate and rhythm GI/Abdominal GI/Abdominal exam: Present soft; Absent tenderness Extremities Exam Extremities exam: Absent joint swelling or pedal edema Neurological Exam Neurological exam: Present alert and oriented X3 Psychiatric Psychiatric exam: Present normal affect and normal mood Skin Skin exam: Present warm; Absent rash A/P Assessment and plan (1) ESRD on hemodialysis: Assessment and plan: Rito Fleming is a 76-year-old male with end stage renal disease on hemodialysis, chronic anemia due to ESRD, HFpEF, moderate aortic stenosis, hypertension, diabetes mellitus type 2 admitted on 04/27/22. He was presented to ED for lightheadedness. He fell in his bathroom where he spent the next 3 and half hours until he could crawl himself up and call an ambulance. In ED, he had orthostatic hypotension. Labs were significant for leukocytosis with WBC 19.9, procalcitonin level 19.4, and lactic acid 1.3. COVID and influenza screen negative. Nephrology consultation was requested for end stage renal disease. End stage renal disease on chronic hemodialysis on TTS at [facility]. Tunneled HD catheter. Chronic anemia due to ESRD. Sepsis with leukocytosis and procalcitonin elevation with Tmax 100.6 on 04/28/22. ID consult done on 04/28/22. No obvious source identified. Hypotension associated with sepsis. Liver enzyme elevation, new, mild, associated with sepsis. 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 Pulmonary arterial hypertension by CT on 03/17/22. Workup: CT Abdomen and Pelvis on 04/27/22: Atrophy of both kidneys consistent with chronic diabetes. Cholelithiasis without cholecystitis. No acute abnormality in the abdomen or pelvis. CXR on 04/27/22: Stable tumor adjacent to the aortic arch and no acute abnormality. Blood culture on 04/27/22: No growth so far. Progress: ID recommendations: Complete 5 days total Vancomycin 1,500mg IV TIW after HD; keep trough level between 15-20 Discontinue Zosyn; complete remaining 5 day course with Ceftazidime 2g IV on and 3g IV on Thursday post HD Vancomycin level was 12.7 from 15:01 on 05/01/22 after hemodialysis Hypotension improved after Amlodipine, Carvedilol and Furosemide held as well as Midodrine and IVF administered. Carvedilol 3.125 mg twice daily resumed for hypertension on 04/30/22, but discontinued due to bradycardia. Amlodipine resumed after hemodialysis as 5 mg daily on 05/01/22. Dose increased to 10 mg daily on 05/02/22. Toradol discontinued to prevent acute kidney injury of residual kidney function. Statins discontinued for liver enzyme elevation. Hyponatremia and metabolic acidosis, mild associated with ESRD, resolved with hemodialysis. Hypokalemia, resolved after supplementation. Last hemodialysis on 05/01/22. Discharge recommendations: Ceftazidime 3 g IV need to be scheduled at Med-Surg unit after outpatient hemodialysis on 05/03/22. Tunneled dialysis catheter may be accessed and de- accessed by hemodialysis staff. Home medications supplied by [facility]'s as pre-packed will require update. Carvedilol discontinued for bradycardia. Amlodipine 10 mg changed to daily at bedtime. Adjustment of outpatient dialysate potassium may be needed. Status: Chronic Time Spent With Patient Time: Total time spent is greater than 50% in coordination of care (as documented) at patient's floor/unit and/or counseling patient:
[2022-05-02] MEDS: 0.9 % SODIUM CHLORIDE 10 ML SYRINGE IV SCH (07:47)
[2022-05-02] MEDS: INSULIN LISPRO 1 UNIT/0.01 ML UNIT SQ SCH ×2 (07:48→11:46)
[2022-05-02] MEDS ORDERED: amLODIPine 10 MG TABLET PO SCH (09:00)
[2022-05-02] MEDS: DOCUSATE SODIUM 100 MG CAPSULE PO SCH ×2 (09:04→09:06)
[2022-05-02] MEDS: HEPARIN 5,000 UNIT/ML VIAL SQ SCH (09:04)
[2022-05-02] MEDS: TAMSULOSIN 0.4 MG CAPSULE PO SCH (09:04)
[2022-05-03] MEDS ORDERED: SODIUM CHLORIDE 0.9% IV SCH (16:00)
[2022-05-03] MEDS ORDERED: CEFTAZIDIME IV SCH (16:00)
== END 2022-05-02 13:40 | disposition home or self-care (01) | DRG 871 ==
LOC: ED 11:43 → ICU 11:43
PROVIDERS: ADMIT Internal Medicine; ATTEND Internal Medicine